=== PATIENT | female | born 1955 | race Caucasian/White ===

== ENCOUNTER 2017-03-21 14:58 | Outpatient (RCR) | payer BC ==
[2017-03-21 15:32] LABS: BASOPHILS % (AUTO) 0 % (0-10); EOSINOPHILS # (AUTO) 0.3 10^3/uL (0.0-0.3); EOSINOPHILS % (AUTO) 3 % (0-10); HEMATOCRIT 42 % (35-52); HEMOGLOBIN 13.5 G/DL (11.5-16.0); LYMPHOCYTES # (AUTO) 2.1 X 10^3 (1.0-4.0); LYMPHOCYTES % (AUTO) 21 % (12-44); MEAN CORPUSCULAR HEMOGLOBIN 29 PG (25-34); MEAN CORPUSCULAR HGB CONC 32 G/DL (32-36); MEAN CORPUSCULAR VOLUME 91 FL (80-99); MONOCYTES # (AUTO) 0.6 X 10^3 (0.0-1.0); MONOCYTES % (AUTO) 6 % (0-12); NEUTROPHILS # (AUTO) 6.9 X 10^3 (1.8-7.8); NEUTROPHILS % (AUTO) 70 % (42-75); PLATELET COUNT 248 10^3/uL (130-400); RED BLOOD COUNT 4.66 10^6/uL (4.35-5.85); RED CELL DISTRIBUTION WIDTH 13.3 % (10.0-14.5)
[2017-03-21 15:50] LABS: ALANINE AMINOTRANSFERASE 18 U/L (0-55); ALBUMIN 4.2 GM/DL (3.2-4.5); ALKALINE PHOSPHATASE 74 U/L (40-136); BILIRUBIN,TOTAL 0.4 MG/DL (0.1-1.0); BUN/CREATININE RATIO 24; CALCIUM 9.7 MG/DL (8.5-10.1); CARBON DIOXIDE 32 MMOL/L (21-32); CHLORIDE 100 MMOL/L (98-107); CREATININE SERUM 0.66 MG/DL (0.60-1.30); GFR ESTIMATED > 60; GLUCOSE 96 MG/DL (70-105); POTASSIUM 3.8 MMOL/L (3.6-5.0); SODIUM 140 MMOL/L (135-145); TOTAL PROTEIN 7.5 GM/DL (6.4-8.2)
== END 2017-06-19 | disposition home or self-care (01) ==
LOC: ONC 14:58
PROVIDERS: ATTEND Internal Medicine Hematology & Oncology
DX: Z08 Encounter for follow-up examination after completed treatment for malignant neoplasm (principal); Z85.038 Personal history of other malignant neoplasm of large intestine; Z85.05 Personal history of malignant neoplasm of liver; Z86.010 Personal history of colon polyps; Z92.21 Personal history of antineoplastic chemotherapy; Z92.3 Personal history of irradiation
CPT/HCPCS: 36415; 80053; 82378; 85025; 99213

== ENCOUNTER 2018-03-27 12:43 | Outpatient (RCR) | payer BC ==
[2018-03-27 13:04] LABS: BASOPHILS % (AUTO) 0 % (0-10); EOSINOPHILS # (AUTO) 0.3 10^3/uL (0.0-0.3); EOSINOPHILS % (AUTO) 3 % (0-10); HEMATOCRIT 42 % (35-52); HEMOGLOBIN 13.5 G/DL (11.5-16.0); LYMPHOCYTES # (AUTO) 1.7 X 10^3 (1.0-4.0); LYMPHOCYTES % (AUTO) 20 % (12-44); MEAN CORPUSCULAR HEMOGLOBIN 30 PG (25-34); MEAN CORPUSCULAR HGB CONC 32 G/DL (32-36); MEAN CORPUSCULAR VOLUME 93 FL (80-99); MONOCYTES # (AUTO) 0.5 X 10^3 (0.0-1.0); MONOCYTES % (AUTO) 6 % (0-12); NEUTROPHILS # (AUTO) 6.3 X 10^3 (1.8-7.8); NEUTROPHILS % (AUTO) 72 % (42-75); PLATELET COUNT 231 10^3/uL (130-400); RED CELL DISTRIBUTION WIDTH 13.2 % (10.0-14.5); WHITE BLOOD COUNT 8.8 10^3/uL (4.3-11.0)
[2018-03-27 13:25] LABS: ALANINE AMINOTRANSFERASE 17 U/L (0-55); ALBUMIN 4.3 GM/DL (3.2-4.5); ALKALINE PHOSPHATASE 64 U/L (40-136); BILIRUBIN,TOTAL 0.7 MG/DL (0.1-1.0); BUN/CREATININE RATIO 24; CALCIUM 10.5 MG/DL (8.5-10.1); CARBON DIOXIDE 33 MMOL/L (21-32); CHLORIDE 100 MMOL/L (98-107); CREATININE SERUM 0.74 MG/DL (0.60-1.30); GFR ESTIMATED > 60; GLUCOSE 101 MG/DL (70-105); POTASSIUM 3.8 MMOL/L (3.6-5.0); SODIUM 141 MMOL/L (135-145); TOTAL PROTEIN 7.3 GM/DL (6.4-8.2)
== END 2018-06-25 | disposition home or self-care (01) ==
LOC: ONC 12:43
PROVIDERS: ATTEND Internal Medicine Hematology & Oncology
DX: Z08 Encounter for follow-up examination after completed treatment for malignant neoplasm (principal); Z85.038 Personal history of other malignant neoplasm of large intestine; Z85.05 Personal history of malignant neoplasm of liver; I10 Essential (primary) hypertension; E66.01 Morbid (severe) obesity due to excess calories; Z68.41 Body mass index [BMI] 40.0-44.9, adult; Z86.010 Personal history of colon polyps; Z92.21 Personal history of antineoplastic chemotherapy; Z92.3 Personal history of irradiation; Z79.82 Long term (current) use of aspirin; Z79.899 Other long term (current) drug therapy
CPT/HCPCS: 36415; 80053; 82378; 85025; 99213

== ENCOUNTER 2019-11-16 14:32 | Inpatient (IN) | payer BC, MEDICARE ==
[~2019-11-16] VITALS: Ht 157.5 cm; Wt 102.2 kg
[2019-11-16] MEDS ORDERED: ASPIRIN 81 MG CHEW (CHILDREN'S ASA) PO ONE (15:15)
[2019-11-16] MEDS ORDERED: ONDANSETRON 4 MG/2 ML (SDV) Z0FRAN IVP ONE (15:15)
--- NOTE | 2019-11-16 15:28 | Diagnostic Imaging Report ---
INDICATION: Palpitation and chest tightness. TECHNIQUE: An AP portable view of the chest was obtained. COMPARISON: No previous study is available for comparison at this time. FINDINGS: The heart size and pulmonary vasculature are within normal limits. The lungs are clear bilaterally. IMPRESSION: Unremarkable chest. Dictated by: Dictated on workstation # [id number]
--- NOTE | 2019-11-16 15:30 | ED General ---
General Chief Complaint: Cardiac/General Problems Stated Complaint: LOW HR Nursing Triage Note: Patient reports palpitations, dry heaves, back pain, neck pain, and chest tightness that started today. Patient presented to urgent care and was referred to the ED for a low heart rate of 47. Nursing Sepsis Screen: No Definite Risk History of Present Illness Date Seen by Provider: Nov 16, 2019 Time Seen by Provider: 15:18 Initial Comments 63-year-old female remote history of colon cancer but has been disease free for at least 10 years also history of coronary artery disease with a stent around 2000 maybe 1 stress test since She initially presented complaining of dry heaves back and neck and head pain but then mentioned palpitations and some vague chest tightness she denies chest pain chest tightness started yesterday Allergies and Home Medications Allergies Coded Allergies: No Known Drug Allergies (Unverified , 11/16/19) Patient Home Medication List Home Medication List Reviewed: Yes Review of Systems Review of Systems Constitutional: no symptoms reported EENTM: no symptoms reported Respiratory: no symptoms reported; No short of breath Cardiovascular: palpitations; No syncope; other (description of tightness) Gastrointestinal: No abdominal pain, No diarrhea; nausea, other (says dry heaves but has not vomited) Genitourinary: no symptoms reported Musculoskeletal: other (diffuse aching back neck had) Past Zdaasyn-Upcycy-Spqcut Hx Patient Social History Alcohol Use: Denies Use Recreational Drug Use: No 2nd Hand Smoke Exposure: No Recent Foreign Travel: No Contact w/Someone Who Travel: No Recent Infectious Disease Expo: No Recent Hopitalizations: No Physical Abuse: No Sexual Abuse: No Mistreated: No Fear: No Seasonal Allergies Seasonal Allergies: No Past Medical History Surgeries: Yes (colon resection, varicose vein stripping) Respiratory: No Cardiac: Yes Coronary Artery Disease, High Cholesterol, Hypertension, Palpitations Neurological: No Genitourinary: No Gastrointestinal: No Musculoskeletal: No Endocrine: No HEENT: No Cancer: Yes Colon Did You Recieve Any Treatments: Yes What Type of Treatment Did You: Surgical Intervention Psychosocial: No Integumentary: No Blood Disorders: No Physical Exam Vital Signs Vital Signs - First Documented 11/16/19 14:37 Temp 36.6 Pulse 80 Resp 17 B/P (MAP) 149/73 (98) Pulse Ox 97 O2 Delivery Room Air Capillary Refill : Less Than 3 Seconds Height, Weight, BMI Height: '" Weight: lbs. oz. kg; 41.00 BMI Method: General Appearance: No Apparent Distress Eyes: Bilateral Eye PERRL, Bilateral Eye EOMI HEENT: Normal ENT Inspection, Pharynx Normal Neck: Supple Respiratory: Lungs Clear Cardiovascular: Other (irreg as described elsewhere) Gastrointestinal: Non Tender, Soft Extremity: Normal Inspection, No Calf Tenderness Progress/Results/Core Measures Suspected Sepsis Recent Fever Within 48 Hours: No Infection Criteria Present: None New/Unexplained Altered Menta: No Sepsis Screen: No Definite Risk SIRS Temperature: Pulse: 80 Respiratory Rate: 17 Laboratory Tests 11/16/19 15:20: White Blood Count 11.5H Blood Pressure 149 /73 Mean: 98 Laboratory Tests 11/16/19 15:20: Creatinine 0.66, Platelet Count 226, Total Bilirubin 0.3 Results/Orders Lab Results Laboratory Tests Test 11/16/19 15:20 Range/Units White Blood Count 11.5 H 4.3-11.0 10^3/uL Red Blood Count 4.91 4.35-5.85 10^6/uL Hemoglobin 14.5 11.5-16.0 G/DL Hematocrit 45 35-52 % Mean Corpuscular Volume 92 80-99 FL Mean Corpuscular Hemoglobin 30 25-34 PG Mean Corpuscular Hemoglobin Concent 32 32-36 G/DL Red Cell Distribution Width 13.3 10.0-14.5 % Platelet Count 226 130-400 10^3/uL Mean Platelet Volume 10.2 7.4-10.4 FL Neutrophils (%) (Auto) 77 H 42-75 % Lymphocytes (%) (Auto) 15 12-44 % Monocytes (%) (Auto) 7 0-12 % Eosinophils (%) (Auto) 2 0-10 % Basophils (%) (Auto) 0 0-10 % Neutrophils # (Auto) 8.8 H 1.8-7.8 X 10^3 Lymphocytes # (Auto) 1.7 1.0-4.0 X 10^3 Monocytes # (Auto) 0.8 0.0-1.0 X 10^3 Eosinophils # (Auto) 0.2 0.0-0.3 10^3/uL Basophils # (Auto) 0.0 0.0-0.1 10^3/uL Sodium Level 142 135-145 MMOL/L Potassium Level 4.1 3.6-5.0 MMOL/L Chloride Level 99 98-107 MMOL/L Carbon Dioxide Level 29 21-32 MMOL/L Anion Gap 14 5-14 MMOL/L Blood Urea Nitrogen 20 H 7-18 MG/DL Creatinine 0.66 0.60-1.30 MG/DL Estimat Glomerular Filtration Rate > 60 BUN/Creatinine Ratio 30 Glucose Level 109 H 70-105 MG/DL Calcium Level 10.6 H 8.5-10.1 MG/DL Corrected Calcium 8.5-10.1 MG/DL Total Bilirubin 0.3 0.1-1.0 MG/DL Aspartate Amino Transf (AST/SGOT) 21 5-34 U/L Alanine Aminotransferase (ALT/SGPT) 18 0-55 U/L Alkaline Phosphatase 75 40-136 U/L Troponin I < 0.30 <0.30 NG/ML Total Protein 7.5 6.4-8.2 GM/DL Albumin 4.6 H 3.2-4.5 GM/DL My Orders Orders - RONDA ARECHIGA MD Iv Heplock-Insert (Order) (11/16/19 15:07) Ekg Tracing (11/16/19 15:07) Troponin I Fs (11/16/19 15:07) Cbc With Automated Diff (11/16/19 15:07) Comprehensive Metabolic Panel (11/16/19 15:07) Chest 1 View Ap/Pa Only (11/16/19 15:07) Monitor-Rhythm Ecg Trace Only (11/16/19 15:07) Ondansetron Injection (Zofran Injectio (11/16/19 15:15) Aspirin Chewable Tablet (Baby Aspirin Ch (11/16/19 15:15) Medications Given in ED Current Medications Medications Dose Ordered Sig/Saeid Route Start Time Stop Time Status Last Admin Dose Admin Aspirin 324 mg ONCE ONCE PO 11/16/19 15:15 11/16/19 15:16 DC 11/16/19 15:29 243 MG Ondansetron HCl 4 mg ONCE ONCE IVP 11/16/19 15:15 11/16/19 15:16 DC 11/16/19 15:29 4 MG Vital Signs/I&O 11/16/19 14:37 Temp 36.6 Pulse 80 Resp 17 B/P (MAP) 149/73 (98) Pulse Ox 97 O2 Delivery Room Air Capillary Refill : Less Than 3 Seconds Blood Pressure Mean: 98 Progress Note : Progress Note Cardiac monitoring shows wandering pacemaker and different forms of PVCs at times bradycardic into 40's but sinus Chest x-ray is unremarkable hemoglobin 14.5 white blood count 11,500 CMP normal troponin is negative pt has wandering atrial pacemaker and various PVCs and is bradycardic at times concerned about the underlying problem here and feel she should be admitted on a monitor to further elucidate Suggest with Dr. Block hospitalist for [facility] who accepts the patient in transfer to [facility] also Dr. Buchanan is aware patient will be on MedSurg telemetry ECG Comment EKG shows a wandering atrial pacemaker and some PVCs no STEMI no definite acute ST changes Departure Impression Primary Impression: Cardiac arrhythmia Qualified Codes: I49.9 - Cardiac arrhythmia, unspecified Disposition: ADMITTED INPATIENT Condition: Stable Departure-Patient Inst. Referrals: [facility]/CRISTINA (PCP) Primary Care Physician DIOGO MAGANA APRN (Family) Primary Care Physician RONDA ARECHIGA MD Nov 16, 2019 15:30
[2019-11-16 15:34] LABS: HEMATOCRIT 45 % (35-52); HEMOGLOBIN 14.5 G/DL (11.5-16.0); MEAN CORPUSCULAR HEMOGLOBIN 30 PG (25-34); MEAN CORPUSCULAR HGB CONC 32 G/DL (32-36); MEAN CORPUSCULAR VOLUME 92 FL (80-99); WHITE BLOOD COUNT 11.5 10^3/uL (4.3-11.0)
[2019-11-16 15:35] LABS: BASOPHILS % (AUTO) 0 % (0-10); EOSINOPHILS % (AUTO) 2 % (0-10); LYMPHOCYTES % (AUTO) 15 % (12-44); MEAN PLATELET VOLUME 10.2 FL (7.4-10.4); MONOCYTES % (AUTO) 7 % (0-12); NEUTROPHILS % (AUTO) 77 % (42-75); PLATELET COUNT 226 10^3/uL (130-400); RED CELL DISTRIBUTION WIDTH 13.3 % (10.0-14.5)
[2019-11-16 15:36] LABS: EOSINOPHILS # (AUTO) 0.2 10^3/uL (0.0-0.3); LYMPHOCYTES # (AUTO) 1.7 X 10^3 (1.0-4.0); MONOCYTES # (AUTO) 0.8 X 10^3 (0.0-1.0); NEUTROPHILS # (AUTO) 8.8 X 10^3 (1.8-7.8)
[2019-11-16 15:54] LABS: ALANINE AMINOTRANSFERASE 18 U/L (0-55); ALBUMIN 4.6 GM/DL (3.2-4.5); ALKALINE PHOSPHATASE 75 U/L (40-136); BILIRUBIN,TOTAL 0.3 MG/DL (0.1-1.0); BUN/CREATININE RATIO 30; CALCIUM 10.6 MG/DL (8.5-10.1); CARBON DIOXIDE 29 MMOL/L (21-32); CHLORIDE 99 MMOL/L (98-107); CREATININE SERUM 0.66 MG/DL (0.60-1.30); GFR ESTIMATED > 60; GLUCOSE 109 MG/DL (70-105); POTASSIUM 4.1 MMOL/L (3.6-5.0); SODIUM 142 MMOL/L (135-145); TOTAL PROTEIN 7.5 GM/DL (6.4-8.2)
--- OUTSIDE RECORDS SUMMARY | 2019-11-16 17:10 | XMS REPORT | Continuity of Care Document ---
Author Organization Unknown Address Unknown Phone Unavailable Allergies Active Description Code Type Severity Reaction Onset Reported/Identified Relationship to Patient Clinical Status Yes No Known Drug Allergies [id number] Drug Allergy Unknown N/A 11/16/2019 Medications There is no data. Problems Date Dx Coded Attending Type Code Diagnosis Diagnosed By 04/09/2014 MELLISA, BOBAN N Ot V10.05 04/09/2014 MELLISA BOBAN N Ot V12.72 04/09/2014 MELLISA BOBAN N Ot V58.69 04/09/2014 MELLISA BOBAN N Ot V67.1 04/09/2014 MELLISA, BOBAN N Ot V67.2 04/07/2015 MELLISA BOBAN N Ot Z08 04/07/2015 MELLISA BOBAN N Ot Z85.038 04/07/2015 MELLISA BOBAN N Ot Z85.05 04/07/2015 MELLISA, BOBAN N Ot Z86.010 04/07/2015 MELLISA BOBAN N Ot Z92.21 03/22/2016 MELLISA, BOBAN N Ot Z08 ENCNTR FOR FOLLOW-UP EXAM AFTER TRTMT FO 03/22/2016 MELLISA, BOBAN N Ot Z85.038 PERSONAL HISTORY OF MALIGNANT NEOPLASM O 03/22/2016 MELLISA, BOBAN N Ot Z85.05 PERSONAL HISTORY OF MALIGNANT NEOPLASM O 03/22/2016 MELLISA BOBAN N Ot Z86.010 PERSONAL HISTORY OF COLONIC POLYPS 03/22/2016 MELLISA, BOBAN N Ot Z92.21 PERSONAL HISTORY OF ANTINEOPLASTIC CHEMO 04/05/2016 MELLISA BOBAN N Ot Z08 ENCNTR FOR FOLLOW-UP EXAM AFTER TRTMT FO 04/05/2016 MELLISA, BOBAN N Ot Z85.038 PERSONAL HISTORY OF MALIGNANT NEOPLASM O 04/05/2016 MELLISA BOBAN N Ot Z85.05 PERSONAL HISTORY OF MALIGNANT NEOPLASM O 04/05/2016 MELLISA, BOBAN N Ot Z86.010 PERSONAL HISTORY OF COLONIC POLYPS 04/05/2016 RENETTA PAK N Ot Z92.21 PERSONAL HISTORY OF ANTINEOPLASTIC CHEMO 03/25/2017 RENETTA PAK N Ot Z08 ENCNTR FOR FOLLOW-UP EXAM AFTER TRTMT FO 03/25/2017 RENETTA PAK N Ot Z85.038 PERSONAL HISTORY OF MALIGNANT NEOPLASM O 03/25/2017 RENETTA PAK N Ot Z85.05 PERSONAL HISTORY OF MALIGNANT NEOPLASM O 03/25/2017 MELLISA ANKURTAMARA N Ot Z86.010 PERSONAL HISTORY OF COLONIC POLYPS 03/25/2017 RENETTA PAK N Ot Z92.21 PERSONAL HISTORY OF ANTINEOPLASTIC CHEMO 03/25/2017 RENETTA PAK N Ot Z92.3 PERSONAL HISTORY OF IRRADIATION 04/19/2017 RENETTA PAK N Ot Z08 ENCNTR FOR FOLLOW-UP EXAM AFTER TRTMT FO 04/19/2017 RENETTA PAK N Ot Z85.038 PERSONAL HISTORY OF MALIGNANT NEOPLASM O 04/19/2017 MELLISA ANKURTAMARA N Ot Z85.05 PERSONAL HISTORY OF MALIGNANT NEOPLASM O 04/19/2017 RENETTA APK N Ot Z86.010 PERSONAL HISTORY OF COLONIC POLYPS 04/19/2017 RENETTA PAK N Ot Z92.21 PERSONAL HISTORY OF ANTINEOPLASTIC CHEMO 04/19/2017 RENETTA PAK N Ot Z92.3 PERSONAL HISTORY OF IRRADIATION 06/19/2017 RENETTA PAK N Ot Z08 ENCNTR FOR FOLLOW-UP EXAM AFTER TRTMT FO 06/19/2017 RENETTA PAK N Ot Z85.038 PERSONAL HISTORY OF MALIGNANT NEOPLASM O 06/19/2017 MELLISA ANKURTAMARA N Ot Z85.05 PERSONAL HISTORY OF MALIGNANT NEOPLASM O 06/19/2017 MELLISA ANKURTAMARA N Ot Z86.010 PERSONAL HISTORY OF COLONIC POLYPS 06/19/2017 RENETTA PAK N Ot Z92.21 PERSONAL HISTORY OF ANTINEOPLASTIC CHEMO 06/19/2017 MELLISA ANKURTAMARA N Ot Z92.3 PERSONAL HISTORY OF IRRADIATION 06/20/2017 MELLISA ANKURTAMARA N Ot Z08 ENCNTR FOR FOLLOW-UP EXAM AFTER TRTMT FO 06/20/2017 RENETTA PAK N Ot Z85.038 PERSONAL HISTORY OF MALIGNANT NEOPLASM O 06/20/2017 MELLISA ANKURTAMARA N Ot Z85.05 PERSONAL HISTORY OF MALIGNANT NEOPLASM O 06/20/2017 RENETTA PAK N Ot Z86.010 PERSONAL HISTORY OF COLONIC POLYPS 06/20/2017 RENETTA PAK N Ot Z92.21 PERSONAL HISTORY OF ANTINEOPLASTIC CHEMO 06/20/2017 RENETTA PAK N Ot Z92.3 PERSONAL HISTORY OF IRRADIATION 05/12/2018 RENETTA PAK N Ot E66.01 MORBID (SEVERE) OBESITY DUE TO EXCESS CA 05/12/2018 RENETTA PAK N Ot I10 ESSENTIAL (PRIMARY) HYPERTENSION 05/12/2018 RENETTA PAK N Ot Z08 ENCNTR FOR FOLLOW-UP EXAM AFTER TRTMT FO 05/12/2018 RENETTA PAK N Ot Z68.41 BODY MASS INDEX (BMI) 40.0-44.9, ADULT 05/12/2018 RENETTA PAK N Ot Z79.82 HALF-WAY (CURRENT) USE OF ASPIRIN 05/12/2018 MELLISA ANKURTAMARA N Ot Z79.899 OTHER HALF-WAY (CURRENT) DRUG THERAPY 05/12/2018 MELLISA ANKURTAMARA N Ot Z85.038 PERSONAL HISTORY OF MALIGNANT NEOPLASM O 05/12/2018 MELLISA ANKURTAMARA N Ot Z85.05 PERSONAL HISTORY OF MALIGNANT NEOPLASM O 05/12/2018 RENETTA PAK N Ot Z86.010 PERSONAL HISTORY OF COLONIC POLYPS 05/12/2018 RENETTA PAK N Ot Z92.21 PERSONAL HISTORY OF ANTINEOPLASTIC CHEMO 05/12/2018 RENETTA PAK N Ot Z92.3 PERSONAL HISTORY OF IRRADIATION 06/25/2018 RENETTA PAK N Ot E66.01 MORBID (SEVERE) OBESITY DUE TO EXCESS CA 06/25/2018 RENETTA PAK N Ot I10 ESSENTIAL (PRIMARY) HYPERTENSION 06/25/2018 RENETTA PAK N Ot Z08 ENCNTR FOR FOLLOW-UP EXAM AFTER TRTMT FO 06/25/2018 RENETTA PAK N Ot Z68.41 BODY MASS INDEX (BMI) 40.0-44.9, ADULT 06/25/2018 RENETTA PAK N Ot Z79.82 BUSINESS REPORTER (CURRENT) USE OF ASPIRIN 06/25/2018 MELLISA ANKURTAMARA N Ot Z79.899 OTHER BUSINESS REPORTER (CURRENT) DRUG THERAPY 06/25/2018 MELLISA ANKURTAMARA N Ot Z85.038 PERSONAL HISTORY OF MALIGNANT NEOPLASM O 06/25/2018 MELLISA RENETTA N Ot Z85.05 PERSONAL HISTORY OF MALIGNANT NEOPLASM O 06/25/2018 RENETTA PAK N Ot Z86.010 PERSONAL HISTORY OF COLONIC POLYPS 06/25/2018 RENETTA PAK N Ot Z92.21 PERSONAL HISTORY OF ANTINEOPLASTIC CHEMO 06/25/2018 RENETTA PAK N Ot Z92.3 PERSONAL HISTORY OF IRRADIATION 06/26/2018 RENETTA PAK N Ot E66.01 MORBID (SEVERE) OBESITY DUE TO EXCESS CA 06/26/2018 RENETTA PAK N Ot I10 ESSENTIAL (PRIMARY) HYPERTENSION 06/26/2018 RENETTA PAK N Ot Z08 ENCNTR FOR FOLLOW-UP EXAM AFTER TRTMT FO 06/26/2018 RENETTA PAK N Ot Z68.41 BODY MASS INDEX (BMI) 40.0-44.9, ADULT 06/26/2018 RENETTA PAK N Ot Z79.82 HALF-WAY (CURRENT) USE OF ASPIRIN 06/26/2018 RENETTA PAK N Ot Z79.899 OTHER HALF-WAY (CURRENT) DRUG THERAPY 06/26/2018 RENETTA PAK N Ot Z85.038 PERSONAL HISTORY OF MALIGNANT NEOPLASM O 06/26/2018 RENETTA PAK N Ot Z85.05 PERSONAL HISTORY OF MALIGNANT NEOPLASM O 06/26/2018 RENETTA PAK N Ot Z86.010 PERSONAL HISTORY OF COLONIC POLYPS 06/26/2018 RENETTA PAK N Ot Z92.21 PERSONAL HISTORY OF ANTINEOPLASTIC CHEMO 06/26/2018 RENETTA PAK N Ot Z92.3 PERSONAL HISTORY OF IRRADIATION 03/30/2019 RENETTA PAK N Ot E66.01 MORBID (SEVERE) OBESITY DUE TO EXCESS CA 03/30/2019 RENETTA PAK N Ot I10 ESSENTIAL (PRIMARY) HYPERTENSION 03/30/2019 RENETTA PAK Ayleen Ot Z08 ENCNTR FOR FOLLOW-UP EXAM AFTER TRTMT FO 03/30/2019 RENETTA PAK Ayleen Ot Z68.41 BODY MASS INDEX (BMI) 40.0-44.9, ADULT 03/30/2019 RENETTA PAK N Ot Z79.82 HALF-WAY (CURRENT) USE OF ASPIRIN 03/30/2019 MELLISA ANKURTAMARA N Ot Z79.899 OTHER BUSINESS REPORTER (CURRENT) DRUG THERAPY 03/30/2019 RENETTA PAK N Ot Z85.038 PERSONAL HISTORY OF MALIGNANT NEOPLASM O 03/30/2019 RENETTA PAK N Ot Z85.05 PERSONAL HISTORY OF MALIGNANT NEOPLASM O 03/30/2019 RENETTA PAK Ot Z86.010 PERSONAL HISTORY OF COLONIC POLYPS 03/30/2019 RENETTA PAK N Ot Z92.21 PERSONAL HISTORY OF ANTINEOPLASTIC CHEMO 03/30/2019 RENETTA PAK N Ot Z92.3 PERSONAL HISTORY OF IRRADIATION 04/02/2019 RENETTA PAK N Ot 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 04/02/2019 RENETTA PAK N Ot E66.01 MORBID (SEVERE) OBESITY DUE TO EXCESS CA 04/02/2019 RENETTA PAK N Ot I10 ESSENTIAL (PRIMARY) HYPERTENSION 04/02/2019 RENETTA PAK N Ot Z85.05 PERSONAL HISTORY OF MALIGNANT NEOPLASM O 04/02/2019 RENETTA PAK N Ot Z90.49 ACQUIRED ABSENCE OF OTHER SPECIFIED PART 04/02/2019 RENETTA PAK Ot 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 04/02/2019 RENETTA PAK N Ot E66.01 MORBID (SEVERE) OBESITY DUE TO EXCESS CA 04/02/2019 RENETTA PAK N Ot I10 ESSENTIAL (PRIMARY) HYPERTENSION 04/02/2019 RENETTA PAK N Ot Z85.05 PERSONAL HISTORY OF MALIGNANT NEOPLASM O 04/02/2019 RENETTA PAK N Ot Z90.49 ACQUIRED ABSENCE OF OTHER SPECIFIED PART 04/08/2019 RENETTA PAK N Ot 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 04/08/2019 RENETTA PAK N Ot E66.01 MORBID (SEVERE) OBESITY DUE TO EXCESS CA 04/08/2019 RENETTA PAK N Ot I10 ESSENTIAL (PRIMARY) HYPERTENSION 04/08/2019 RENETTA PAK N Ot Z85.05 PERSONAL HISTORY OF MALIGNANT NEOPLASM O 04/08/2019 RENETTA PAK N Ot Z90.49 ACQUIRED ABSENCE OF OTHER SPECIFIED PART 04/28/2019 RENETTA PAK N Ot 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 04/28/2019 RENETTA PAK N Ot E66.01 MORBID (SEVERE) OBESITY DUE TO EXCESS CA 04/28/2019 RENETTA PAK N Ot I10 ESSENTIAL (PRIMARY) HYPERTENSION 04/28/2019 RENETTA PAK N Ot Z85.05 PERSONAL HISTORY OF MALIGNANT NEOPLASM O 04/28/2019 RENETTA PAK N Ot Z90.49 ACQUIRED ABSENCE OF OTHER SPECIFIED PART Procedures There is no data. Results Test Result Range Complete blood count (CBC) with automate d white blood cell (WBC) differential - 03/21/17 15:25 Blood leukocytes automated count (number/volume) 10.0 10*3/uL 4.3-11.0 Blood erythrocytes automated count (number/volume) 4.66 10*6/uL 4.35-5.85 Venous blood hemoglobin measurement (mass/volume) 13.5 g/dL 11.5-16.0 Blood hematocrit (volume fraction) 42 % 35-52 Automated erythrocyte mean corpuscular volume 91 [ foz_us] 80-99 Automated erythrocyte mean corpuscular h emoglobin (mass per erythrocyte) 29 pg 25-34 Automated erythrocyte mean corpuscular h emoglobin concentration measurement (mass/volume) 32 g/dL 32-36 Automated erythrocyte distribution width ratio 13. 3 % 10.0- 14.5 Automated blood platelet count (count/volume) 248 10*3/uL 130-400 Automated blood platelet mean volume measurement 10.0 [foz_us] 7.4-10.4 Automated blood neutrophils/100 leukocytes 70 % 42-75 Automated blood lymphocytes/100 leukocytes 21 % 12-44 Blood monocytes/100 leukocytes 6 % 0-12 Automated blood eosinophils/100 leukocytes 3 % 0-10 Automated blood basophils/100 leukocytes 0 % 0-10 Blood neutrophils automated count (number/volume) 6.9 10*3 1.8-7.8 Blood lymphocytes automated count (number/volume) 2.1 10*3 1.0-4.0 Blood monocytes automated count (number/volume) 0. 6 10*3 0.0-1.0 Automated eosinophil count 0.3 10*3/uL 0 .0-0.3 Automated blood basophil count (count/volume) 0.0 10*3/uL 0.0-0.1 Comprehensive metabolic panel - 03/21/17 15:25 Serum or plasma sodium measurement (moles/volume) 140 mmol/L 135-145 Serum or plasma potassium measurement (moles/volume) 3.8 mmol/L 3.6-5.0 Serum or plasma chloride measurement (moles/volume) 100 mmol/L 98-107 Carbon dioxide 32 mmol/L 21-32 Serum or plasma anion gap determination (moles/volume) 8 mmol/L 5-14 Serum or plasma urea nitrogen measurement (mass/volume ) 16 mg/dL 7-18 Serum or plasma creatinine measurement (mass/volume) 0.66 mg/dL 0.60-1.30 Serum or plasma urea nitrogen/creatinine mass ratio 24 NRG Serum or plasma creatinine measurement w ith calculation of estimated glomerular filtration rate > NRG Serum or plasma glucose measurement (mass/volume) 96 mg/dL 70-105 Serum or plasma calcium measurement (mass/volume) 9.7 mg/dL 8.5-10.1 Serum or plasma total bilirubin measurement (mass/volu me) 0.4 mg/dL 0.1-1.0 Serum or plasma alkaline phosphatase kwasi surement (enzymatic activity/volume) 74 U/L 40-136 Serum or plasma aspartate aminotransfera se measurement (enzymatic activity/volume) 18 U/L 5-34 Serum or plasma alanine aminotransferase measurement (enzymatic activity/volume) 18 U/L 0-55 Serum or plasma protein measurement (mass/volume) 7.5 g/dL 6.4-8.2 Serum or plasma albumin measurement (mass/volume) 4.2 g/dL 3.2-4.5 Serum ragweed IgE antibody assay - 03/21 15:25 Serum ragweed IgE antibody assay <0.5 0.0-5.0 CULTURE, URINE - 03/10/19 09:11 CULTURE, URINE, ROUTINE SEE NOTE NRG CMP - 03/17/19 15:07 GLUCOSE 84 mg/dL 65-99 UREA NITROGEN (BUN) 22 mg/dL 7-25 CREATININE 0.56 mg/dL 0.50-0.99 eGFR NON-AFR. PERUVIAN 98 mL/min/1.73m2 > OR = 60 eGFR 113 mL/min/1.73m2 > OR = 60 BUN/CREATININE RATIO NOT APPLICABLE (calc) 6-22 SODIUM 140 mmol/L 135-146 POTASSIUM 4.0 mmol/L 3.5-5.3 CHLORIDE 98 mmol/L 98-110 CARBON DIOXIDE 30 mmol/L 20-32 CALCIUM 10.0 mg/dL 8.6-10.4 PROTEIN, TOTAL 7.1 g/dL 6.1-8.1 ALBUMIN 4.3 g/dL 3.6-5.1 GLOBULIN 2.8 g/dL (calc) 1.9-3.7 ALBUMIN/GLOBULIN RATIO 1.5 (calc) 1.0-2. 5 BILIRUBIN, TOTAL 1.0 mg/dL 0.2-1.2 ALKALINE PHOSPHATASE 75 U/L 33-130 AST 21 U/L 10-35 ALT 21 U/L 6-29 Complete blood count (CBC) with automate d white blood cell (WBC) differential - 11/16/19 15:20 Blood leukocytes automated count (number/volume) 11.5 10*3/uL 4.3-11.0 Blood erythrocytes automated count (number/volume) 4.91 10*6/uL 4.35-5.85 Venous blood hemoglobin measurement (mass/volume) 14.5 g/dL 11.5-16.0 Blood hematocrit (volume fraction) 45 % 35-52 Automated erythrocyte mean corpuscular volume 92 [ foz_us] 80-99 Automated erythrocyte mean corpuscular h emoglobin (mass per erythrocyte) 30 pg 25-34 Automated erythrocyte mean corpuscular h emoglobin concentration measurement (mass/volume) 32 g/dL 32-36 Automated erythrocyte distribution width ratio 13. 3 % 10.0- 14.5 Automated blood platelet count (count/volume) 226 10*3/uL 130-400 Automated blood platelet mean volume measurement 10.2 [foz_us] 7.4-10.4 Automated blood neutrophils/100 leukocytes 77 % 42-75 Automated blood lymphocytes/100 leukocytes 15 % 12-44 Blood monocytes/100 leukocytes 7 % 0-12 Automated blood eosinophils/100 leukocytes 2 % 0-10 Automated blood basophils/100 leukocytes 0 % 0-10 Blood neutrophils automated count (number/volume) 8.8 10*3 1.8-7.8 Blood lymphocytes automated count (number/volume) 1.7 10*3 1.0-4.0 Blood monocytes automated count (number/volume) 0. 8 10*3 0.0-1.0 Automated eosinophil count 0.2 10*3/uL 0 .0-0.3 Automated blood basophil count (count/volume) 0.0 10*3/uL 0.0-0.1 Comprehensive metabolic panel - 11/16/19 15:20 Serum or plasma sodium measurement (moles/volume) 142 mmol/L 135-145 Serum or plasma potassium measurement (moles/volume) 4.1 mmol/L 3.6-5.0 Serum or plasma chloride measurement (moles/volume) 99 mmol/L 98-107 Carbon dioxide 29 mmol/L 21-32 Serum or plasma anion gap determination (moles/volume) 14 mmol/L 5-14 Serum or plasma urea nitrogen measurement (mass/volume ) 20 mg/dL 7-18 Serum or plasma creatinine measurement (mass/volume) 0.66 mg/dL 0.60-1.30 Serum or plasma urea nitrogen/creatinine mass ratio 30 NRG Serum or plasma creatinine measurement w ith calculation of estimated glomerular filtration rate > NRG Serum or plasma glucose measurement (mass/volume) 109 mg/dL 70-105 Serum or plasma calcium measurement (mass/volume) 10.6 mg/dL 8.5-10.1 Serum or plasma total bilirubin measurement (mass/volu me) 0.3 mg/dL 0.1-1.0 Serum or plasma alkaline phosphatase kwasi surement (enzymatic activity/volume) 75 U/L 40-136 Serum or plasma aspartate aminotransfera se measurement (enzymatic activity/volume) 21 U/L 5-34 Serum or plasma alanine aminotransferase measurement (enzymatic activity/volume) 18 U/L 0-55 Serum or plasma protein measurement (mass/volume) 7.5 g/dL 6.4-8.2 Serum or plasma albumin measurement (mass/volume) 4.6 g/dL 3.2-4.5 TROPONIN I FS - 11/16/19 15:20 TROPONIN I FS < 0.30 <0.30 Encounters ACCT No. Visit Date/Time Discharge Status Pt. Type Provider Facility Loc./Unit Complaint [id number] 08/03/2019 14:20:00 08/03/2019 23:59: 59 [facility] [id number] 03/17/2019 14:00:00 Document Registration [id number] 03/10/2019 09:00:00 Document Registration [id number] 03/31/2019 12:49:00 019 23:59:59 CLS Outpatient RENETTA PAK [facility] ONC [id number] 03/27/2018 12:43:00 019 00:01:00 DIS Outpatient RENETTA PAK V [facility] ONC [id number] 03/21/2017 14:58:00 018 00:01:00 DIS Outpatient MELLISARENETTA V [facility] ONC [id number] 03/22/2016 14:39:00 016 23:59:59 CLS Outpatient MELLISARENETTA V [facility] ONC [id number] 03/24/2015 14:48:00 015 23:59:59 CLS Outpatient RENETTA PAK V [facility] ONC [id number] 03/25/2014 15:06:00 014 23:59:59 CLS Outpatient RENETTA PAK V [facility] ONC [id number] 03/16/2013 14:44:00 013 23:59:59 CLS Outpatient [id number] 11/16/2019 14:33:[address] Emergency HAWK DIALLO, RONDA Melissa [facility] ER FS LOW HR
--- NOTE | 2019-11-16 21:40 | NUR ---
ALONA MAURER admitted to room 414-1, with an admitting diagnosis of CARDIAC ARRHYTHMIA AND BRADYCARDIA, on 11/16/19 from [facility] via [facility], accompanied by EMS. ALONA MAURER introduced to surroundings, call light, bed controls, phone, TV, temperature control, lights, meal times, smoking policy, visitor policy, side rail policy, bathrooms and showers. Patient Rights given to patient in the handbook. ALONA MAURER verbalizes understanding that [facility] is not responsible for the loss or damage to any personal effects or valuables that are kept in the patients possession during their hospitalization.
[2019-11-16] MEDS ORDERED: PATIENT MAY USE OWN MEDS, ALL PO SCH (21:45)
[2019-11-16 21:51] VITALS: BP 141/85
[2019-11-17] VITALS (7 sets, daily range): BP systolic 97–125; BP diastolic 57–74
[2019-11-17 05:52] LABS: HEMOGLOBIN 13.5 G/DL (11.5-16.0); MEAN PLATELET VOLUME 10.1 FL (7.4-10.4); RED CELL DISTRIBUTION WIDTH 13.4 % (10.0-14.5); WHITE BLOOD COUNT 7.5 10^3/uL (4.3-11.0)
[2019-11-17 06:13] LABS: CHLORIDE 104 MMOL/L (98-107); POTASSIUM 3.9 MMOL/L (3.6-5.0); SODIUM 141 MMOL/L (135-145)
[2019-11-17 06:14] LABS: CALCIUM 9.6 MG/DL (8.5-10.1)
[2019-11-17 06:15] LABS: GLUCOSE 100 MG/DL (70-105)
[2019-11-17 06:16] LABS: CARBON DIOXIDE 27 MMOL/L (21-32)
[2019-11-17 06:19] LABS: CREATININE SERUM 0.67 MG/DL (0.60-1.30); GFR ESTIMATED > 60
[2019-11-17 06:20] LABS: BUN/CREATININE RATIO 22
--- NOTE | 2019-11-17 08:55 | Consultation-Cardiology ---
HPI-Cardiology Cardiology Consultation Date of Consultation 11/17/19 Date of Admission Time Seen by Provider: 08:51 Indication: Chest pain HPI 63-year-old lady with history of coronary artery disease, stent, history of hypertension and hyperlipidemia. Did not feel well, felt palpitation and skipped beat in addition to pressure in the retrosternal area, came into the emergency room and noted to be borderline bradycardic with frequent atrial and ventricular premature contractions. Since her arrival she is been feeling better still having mild chest discomfort on and off. No syncope, no near syncopal episode reporting snoring at night, never been tested for sleep apnea Home Medications & Allergies Allergies: Coded Allergies: No Known Drug Allergies (Unverified , 11/16/19) Home Medication List Reviewed: Yes THV-Pjlgat-Iiomaq Hx Patient Social History Marital Status: Employed/Student: employed Alcohol Use: Denies Use Recreational Drug Use: No 2nd Hand Smoke Exposure: No Recent Foreign Travel: No Recent Infectious Disease Expo: No Recent Hopitalizations: No Past Medical History Discussed below Family Medical History Family Medical Hx Noncontributory Review of Systems-General Review of Systems Constitutional: no symptoms reported, see HPI, malaise EENTM: see HPI, no symptoms reported Respiratory: see HPI; No cough, No dyspnea on exertion, No hemoptysis, No orthopnea, No phlegm, No short of breath, No stridor, No wheezing, No other Cardiovascular: see HPI, chest pain; No edema, No Hx of Intervention; palpitations; No syncope, No vascular heart diseas; other (description of tightness) Gastrointestinal: see HPI; No abdominal pain, No diarrhea; nausea, other (says dry heaves but has not vomited) Genitourinary: no symptoms reported, see HPI Musculoskeletal: see HPI, other (diffuse aching back neck had) Skin: see HPI Psychiatric/Neurological: See HPI Reviewed Test Results Reviewed Test Results Lab Laboratory Tests Test 11/16/19 15:20 11/17/19 05:25 Range/Units White Blood Count 11.5 H 7.5 4.3-11.0 10^3/uL Red Blood Count 4.91 4.63 4.35-5.85 10^6/uL Hemoglobin 14.5 13.5 11.5-16.0 G/DL Hematocrit 45 42 35-52 % Mean Corpuscular Volume 92 91 80-99 FL Mean Corpuscular Hemoglobin 30 29 25-34 PG Mean Corpuscular Hemoglobin Concent 32 32 32-36 G/DL Red Cell Distribution Width 13.3 13.4 10.0-14.5 % Platelet Count 226 207 130-400 10^3/uL Mean Platelet Volume 10.2 10.1 7.4-10.4 FL Neutrophils (%) (Auto) 77 H 42-75 % Lymphocytes (%) (Auto) 15 12-44 % Monocytes (%) (Auto) 7 0-12 % Eosinophils (%) (Auto) 2 0-10 % Basophils (%) (Auto) 0 0-10 % Neutrophils # (Auto) 8.8 H 1.8-7.8 X 10^3 Lymphocytes # (Auto) 1.7 1.0-4.0 X 10^3 Monocytes # (Auto) 0.8 0.0-1.0 X 10^3 Eosinophils # (Auto) 0.2 0.0-0.3 10^3/uL Basophils # (Auto) 0.0 0.0-0.1 10^3/uL Sodium Level 142 141 135-145 MMOL/L Potassium Level 4.1 3.9 3.6-5.0 MMOL/L Chloride Level 99 104 98-107 MMOL/L Carbon Dioxide Level 29 27 21-32 MMOL/L Anion Gap 14 10 5-14 MMOL/L Blood Urea Nitrogen 20 H 15 7-18 MG/DL Creatinine 0.66 0.67 0.60-1.30 MG/DL Estimat Glomerular Filtration Rate > 60 > 60 BUN/Creatinine Ratio 30 22 Glucose Level 109 H 100 70-105 MG/DL Calcium Level 10.6 H 9.6 8.5-10.1 MG/DL Corrected Calcium 8.5-10.1 MG/DL Total Bilirubin 0.3 0.1-1.0 MG/DL Aspartate Amino Transf (AST/SGOT) 21 5-34 U/L Alanine Aminotransferase (ALT/SGPT) 18 0-55 U/L Alkaline Phosphatase 75 40-136 U/L Troponin I < 0.30 <0.30 NG/ML Total Protein 7.5 6.4-8.2 GM/DL Albumin 4.6 H 3.2-4.5 GM/DL Thyroid Stimulating Hormone (TSH) 1.78 0.35-4.94 UIU/ML Physical Exam Physical Exam Vital Signs Vital Signs - First Documented 11/16/19 14:37 Temp 36.6 Pulse 80 Resp 17 B/P (MAP) 149/73 (98) Pulse Ox 97 O2 Delivery Room Air Capillary Refill : Less Than 3 Seconds Height, Weight, BMI Height: '" Weight: lbs. oz. kg; 41.19 BMI Method: General Appearance: No Apparent Distress Eyes: Bilateral Eye PERRL, Bilateral Eye EOMI HEENT: Normal ENT Inspection, Pharynx Normal Neck: Supple Respiratory: Lungs Clear Cardiovascular: No Edema, No JVD, No Murmur, Other (Frequent APCs, PVCs) Gastrointestinal: Non Tender, Soft Back: Normal Inspection, No CVA Tenderness, No Vertebral Tenderness Extremity: Normal Inspection, No Calf Tenderness Neurologic/Psychiatric: Alert, Oriented x3, No Motor/Sensory Deficits, Normal Mood/Affect Skin: Normal Color, Warm/Dry Lymphatic: No Adenopathy A/P-Cardiology Admission Diagnosis Chest pain Palpitation Sinus bradycardia Ventricular premature contractions Assessment/Plan Chest pain nonspecific etiology, resembling angina, extensive cardiac history, no recent Cardec workup, planning to evaluate stress test in the morning. Palpitation, frequent APC and PVC, I'll start low-dose beta blockers, I doubt that she can tolerate. Due to bradycardia while asleep, probably has underlying sleep apnea. Coronary artery disease, history of stenting over 10 years ago, no recent workup was done. Planning to evaluate stress test Hypertension, monitor blood pressure Hyperlipidemia, has been on statin, monitor lipids Obesity, BMI 41, discussed weight loss Snoring, multiple risk factors for sleep apnea, recommend sleep study, consult Dr. Garza Clinical Quality Measures DVT/VTE Risk/Contraindication: Risk Factor Score Per Nursin RFS Level Per Nursing on Admit: 3=High MEMO MARTINEZ MD Nov 17, 2019 08:55
[2019-11-17] MEDS ORDERED: REGADENOSON 0.4 MG/5 ML SYR (LEXISCAN) IV ONE (09:00)
[2019-11-17 09:10] LABS: TRIGLYCERIDES 185 MG/DL (<150); VLDL CHOLESTEROL 37 MG/DL (5-40)
[2019-11-17 09:15] LABS: CHOLESTEROL 170 MG/DL (< 200)
[2019-11-17 09:16] LABS: HDL CHOLESTEROL 37 MG/DL (40-60)
[2019-11-17] MEDS: ENOXAPARIN 40 MG/0.4 ML (LOVENOX) SYR SQ SCH ×2 (09:22→20:52)
[2019-11-17] MEDS ORDERED: SERT50TA9 PO (10:33)
[2019-11-17] MEDS ORDERED: METO50TA15 PO (10:33)
[2019-11-17] MEDS ORDERED: ASPI-983 PO (10:33)
[2019-11-17] MEDS ORDERED: ATOR20TA66 PO (10:33)
[2019-11-17] MEDS ORDERED: MULT-1060 PO (10:33)
[2019-11-17] MEDS ORDERED: OMEG-141 PO (10:33)
[2019-11-17] MEDS ORDERED: LISI1TAB25 PO (10:33)
--- NOTE | 2019-11-17 10:34 | NUR ---
SPOKE WITH THE PT (SHE HAD HER MEDS WITH HER) AND WENT THRU THE EXT MED HISTORY TO COMPLETE THE MED REC ON 11-06-2019 HYDROCODONE /APAP WAS FILLED FOR #12-HOWEVER THE PT SAID SHE DID NOT LIKE HOW THEY MADE HER FEEL SO SHE ONLY TOOK 2 TABS- FOR THIS REASON I DID NOT INCLUDE ON THE MED REC PT WAS ABLE TO TELL ME HOW/WHEN SHE TAKES HER MEDS AND THE INFORMATION MATCHED THE BOTTLES/EXT MED HISTORY OTC MEDS: MTV OMEGA 3 ASPIRIN 81
--- NOTE | 2019-11-17 11:26 | History & Physical ---
HPI History of Present Illness: 63 yo female came to ER due to palpitations, dry heaves, headache and chest tightness for the last day and a half, although palpitations have been going on longer but less severe. She has a history of a stent around 2003, but denies any other cardiac issues. She denies fever, nasal congestion, sore throat, cough, shortness of breath, diarrhea, vomiting. Her notes she sleeps a lot and seems to get into deep sleep and not breathe for a relatively long period. She has not had a sleep study done. Source: patient Date seen by provider: Nov 17, 2019 Time Seen by Provider: 10:15 Attending Physician Serenity Block MD [facility] Consult Date of Admission Nov 16, 2019 at 16:50 Home Medications Home Medications Reviewed patient Home Medication Reconciliation performed by pharmacy medication reconciliations non destructive evaluation technician and/or nursing. Patients Allergies have been reviewed. Allergies Coded Allergies: No Known Drug Allergies (Unverified , 11/16/19) LMY-Ppnwua-Gewtmt Hx Patient Social History Marrital Status: Employed/Student: employed Alcohol Use: Denies Use Recreational Drug Use: No 2nd Hand Smoke Exposure: No Recent Foreign Travel: No Contact w/other who traveled: No Recent Hopitalizations: No Recent Infectious Disease Expo: No Past Medical History PMHx: CAD s/p stent HTN HLD Colon cancer in remission SurgHx: Colon resection Liver/diaphragm cancer resection Cholecystectomy Family Medical History Significant Family History: No Pertinent Family Hx Review of Systems ([facility]) Constitutional: No fever EENTM: No nose congestion, No throat pain Respiratory: No short of breath Cardiovascular: see HPI Gastrointestinal: No abdominal pain, No constipation, No diarrhea, No nausea, No vomiting Genitourinary: No dysuria Skin: No rash Reviewed Test Results Reviewed Test Results Lab Laboratory Tests Test 11/16/19 15:20 11/17/19 05:25 Range/Units White Blood Count 11.5 H 7.5 4.3-11.0 10^3/uL Red Blood Count 4.91 4.63 4.35-5.85 10^6/uL Hemoglobin 14.5 13.5 11.5-16.0 G/DL Hematocrit 45 42 35-52 % Mean Corpuscular Volume 92 91 80-99 FL Mean Corpuscular Hemoglobin 30 29 25-34 PG Mean Corpuscular Hemoglobin Concent 32 32 32-36 G/DL Red Cell Distribution Width 13.3 13.4 10.0-14.5 % Platelet Count 226 207 130-400 10^3/uL Mean Platelet Volume 10.2 10.1 7.4-10.4 FL Neutrophils (%) (Auto) 77 H 42-75 % Lymphocytes (%) (Auto) 15 12-44 % Monocytes (%) (Auto) 7 0-12 % Eosinophils (%) (Auto) 2 0-10 % Basophils (%) (Auto) 0 0-10 % Neutrophils # (Auto) 8.8 H 1.8-7.8 X 10^3 Lymphocytes # (Auto) 1.7 1.0-4.0 X 10^3 Monocytes # (Auto) 0.8 0.0-1.0 X 10^3 Eosinophils # (Auto) 0.2 0.0-0.3 10^3/uL Basophils # (Auto) 0.0 0.0-0.1 10^3/uL Sodium Level 142 141 135-145 MMOL/L Potassium Level 4.1 3.9 3.6-5.0 MMOL/L Chloride Level 99 104 98-107 MMOL/L Carbon Dioxide Level 29 27 21-32 MMOL/L Anion Gap 14 10 5-14 MMOL/L Blood Urea Nitrogen 20 H 15 7-18 MG/DL Creatinine 0.66 0.67 0.60-1.30 MG/DL Estimat Glomerular Filtration Rate > 60 > 60 BUN/Creatinine Ratio 30 22 Glucose Level 109 H 100 70-105 MG/DL Calcium Level 10.6 H 9.6 8.5-10.1 MG/DL Corrected Calcium 8.5-10.1 MG/DL Total Bilirubin 0.3 0.1-1.0 MG/DL Aspartate Amino Transf (AST/SGOT) 21 5-34 U/L Alanine Aminotransferase (ALT/SGPT) 18 0-55 U/L Alkaline Phosphatase 75 40-136 U/L Troponin I < 0.30 <0.30 NG/ML Total Protein 7.5 6.4-8.2 GM/DL Albumin 4.6 H 3.2-4.5 GM/DL Triglycerides Level 185 H <150 MG/DL Cholesterol Level 170 < 200 MG/DL LDL Cholesterol Direct 110 1-129 MG/DL VLDL Cholesterol 37 5-40 MG/DL HDL Cholesterol 37 L 40-60 MG/DL Thyroid Stimulating Hormone (TSH) 1.78 0.35-4.94 UIU/ML Radiology CXR 11/15 unremarkable Physical Exam-([facility]) Physical Exam Vital Signs VS - Last 72 Hours, by Label 11/16/19 11/16/19 11/16/19 11/16/19 14:37 19:29 21:40 21:51 Temp 36.6 36.9 36.3 Pulse 80 72 68 Resp 17 18 20 B/P (MAP) 149/73 (98) 136/79 141/85 Pulse Ox 97 96 96 O2 Delivery Room Air Room Air Room Air Room Air 11/16/19 11/17/19 11/17/19 11/17/19 22:14 00:41 01:00 04:00 Temp 36.6 36.1 Pulse 53 60 53 81 Resp 18 18 B/P (MAP) 97/65 (76) 106/68 (81) Pulse Ox 96 93 O2 Delivery Room Air Room Air 11/17/19 11/17/19 11/17/19 05:13 07:00 08:00 Temp 36.1 36.0 Pulse 81 62 64 Resp 18 20 B/P (MAP) 106/68 (81) 99/66 (77) Pulse Ox 93 97 O2 Delivery Room Air Room Air Capillary Refill : Less Than 3 Seconds General Appearance: WD/WN, no apparent distress Respiratory: lungs clear, normal breath sounds Cardiovascular: no murmur, irregularly irregular Gastrointestinal: normal bowel sounds, non tender, soft Extremities: No pedal edema Neurologic/Psychiatric: alert, normal mood/affect Skin: normal color, warm/dry Assessment/Plan Assessment/Plan Admission Status: Inpatient Order (span 2 midnights) Reason for Inpatient Admission: Abnormal cardiac rhythm with underlying coronary artery disease (1) Chest pain Status: Acute Assessment & Plan: No ST elevation, troponin okay, but marked ectopy. Cardiology consulted, appreciate recommendations. (2) Cardiac arrhythmia Status: Acute Assessment & Plan: Cardiology consulted, appreciate recommendations. No hypotension. Qualifiers: Qualified Codes: I49.9 - Cardiac arrhythmia, unspecified (3) Coronary artery disease Status: Chronic Qualifiers: (4) Hypertension Status: Chronic Qualifiers: Qualified Codes: I10 - Essential (primary) hypertension (5) Hyperlipidemia Status: Chronic (6) DVT prophylaxis Status: Acute Assessment & Plan: Enoxaparin Clinical Quality Measures DVT/VTE Risk/Contraindication: Risk Factor Score Per Nursin RFS Level Per Nursing on Admit: 3=High SERENITY BLOCK MD Nov 17, 2019 11:26
[2019-11-17] MEDS: meTOprolol TARTRATE 25 MG (LOPRESSOR) TABLET PO SCH ×2 (12:42→20:52)
[2019-11-18] VITALS (15 sets, daily range): BP systolic 99–138; BP diastolic 55–83
[2019-11-18] MEDS ORDERED: CATHETER FLUSH 10 ML SYR IV PRN (07:30)
--- NOTE | 2019-11-18 08:00 | NUR ---
DOWN FOR STRESS TEST
[2019-11-18] MEDS ORDERED: REGADENOSON 0.4 MG/5 ML SYR (LEXISCAN) IV ONE (08:59)
[2019-11-18] MEDS ORDERED: lisINopril 20 MG (PRINIVIL) TABLET PO SCH (09:00)
[2019-11-18] MEDS ORDERED: HYDROCHLOROTHIAZIDE 12.5 MG (HCTZ) CAP PO SCH (09:00)
--- NOTE | 2019-11-18 09:06 | Pulmonary Consultation ---
History of Present Illness History of Present Illness Date Seen by Provider: Nov 18, 2019 Time Seen by Provider: 09:03 Date of Admission Reason for Visit: Chest pain Allergies and Home Medications Allergies Coded Allergies: No Known Drug Allergies (Unverified , 11/16/19) Home Medications Aspirin 81 Mg Tablet.dr, 81 MG PO DAILY, (Reported) Atorvastatin Calcium 20 Mg Tablet, 20 MG PO HS, (Reported) Lisinopril/Hydrochlorothiazide 1 Each Tablet, 1 EA PO DAILY, (Reported) Metoprolol Tartrate 50 Mg Tablet, 50 MG PO HS, (Reported) Multivitamin/Iron/Folic Acid 1 Each Tablet, 1 EACH PO DAILY, (Reported) [place]-3/Dha/Epa/Fish Oil 1 Each Capsule, 1 EACH PO BID, (Reported) Sertraline HCl 50 Mg Tablet, 50 MG PO DAILY, (Reported) Past Dnwakos-Dyvflp-Jacscv Hx Patient Social History Alcohol Use: Denies Use Recreational Drug Use: No 2nd Hand Smoke Exposure: No Recent Foreign Travel: No Contact w/Someone Who Travel: No Recent Infectious Disease Expo: No Recent Hopitalizations: No Physical Abuse: No Sexual Abuse: No Mistreated: No Fear: No Seasonal Allergies Seasonal Allergies: No Past Medical History Surgeries: Yes (colon resection, varicose vein stripping) Respiratory: No Cardiac: Yes Coronary Artery Disease, High Cholesterol, Hypertension, Palpitations Neurological: No Genitourinary: No Gastrointestinal: No Musculoskeletal: No Endocrine: No HEENT: No Cancer: Yes Colon Did You Recieve Any Treatments: Yes What Type of Treatment Did You: Surgical Intervention Psychosocial: No Integumentary: No Blood Disorders: No Family Medical History No Pertinent Family Hx Review of Systems Time Seen by Provider: 09:06 Sepsis Event Evaluation Height, Weight, BMI Height: '" Weight: lbs. oz. kg; 41.19 BMI Method: Exam Exam Vital Signs Date Time Temp Pulse Resp B/P (MAP) Pulse Ox O2 Delivery O2 Flow Rate FiO2 11/18/19 08:00 Room Air 11/18/19 07:55 96 Room Air 11/18/19 06:39 58 11/18/19 04:21 36.2 55 20 129/67 (87) 96 Room Air 11/18/19 01:00 50 11/18/19 00:00 36.4 59 21 116/62 (80) 96 Room Air 11/17/19 20:55 Room Air 11/17/19 20:19 36.3 53 16 122/57 (78) 96 Room Air 11/17/19 19:00 63 11/17/19 16:35 36.9 55 17 125/60 (81) 98 Room Air 11/17/19 12:08 80 11/17/19 12:00 36.0 69 20 108/74 (85) 95 Room Air I & O 11/18/19 07:00 Intake Total 980 ml Balance 980 ml Height & Weight Height: '" Weight: lbs. oz. kg; 41.19 BMI Method: General Appearance: No Apparent Distress HEENT: Normal ENT Inspection, Pharynx Normal Neck: Supple Respiratory: Lungs Clear Cardiovascular: No Edema, No JVD, No Murmur, Other (Frequent APCs, PVCs) Capillary Refill: Less Than 3 Seconds Gastrointestinal: normal bowel sounds, non tender, soft Extremity: Normal Inspection, No Calf Tenderness Neurologic/Psychiatric: Alert, Oriented x3, No Motor/Sensory Deficits, Normal Mood/Affect Skin: Normal Color, Warm/Dry Lymphatic: No Adenopathy Results Lab Laboratory Tests 11/16/19 15:20 11/17/19 05:25 Assessment/Plan Assessment/Plan CP with palpitations and PVCs -Cardiology following Suspected JUANITO with snorinng and EDS -Out pt testing -Will have pt f/u with me for PSG as out pt Morbid obesity r/o OHS -Check ABG -CXR is normal CAD hx ZARA GUILLEN DO Nov 18, 2019 09:06
--- NOTE | 2019-11-18 11:00 | NUR ---
RETURNED FROM STRESS TEST, ABGS DRAWN BY RT, DENIES PAIN OR SOB, CALL LIGHT WITHIN REACH
[2019-11-18] MEDS: ASPIRIN E.C. 81 MG (ECOTRIN) TAB PO SCH (11:11)
[2019-11-18] MEDS: SERTRALINE 50 MG (ZOLOFT) TABLET PO SCH (11:11)
[2019-11-18] MEDS: meTOprolol TARTRATE 25 MG (LOPRESSOR) TABLET PO SCH ×2 (11:12→21:38)
[2019-11-18] MEDS: ENOXAPARIN 40 MG/0.4 ML (LOVENOX) SYR SQ SCH ×2 (11:12→21:42)
[2019-11-18 11:38] LABS: ABG BASE EXCESS 4.3 MMOL/L (-2.5-2.5); ABG OXYGEN SATURATION 96 % (94-100); ABG PCO2 44 MMHG (35-45); ABG PH 7.42 (7.37-7.43); ABG PO2 78 MMHG (79-93); ABG TCO2 29.9 MMOL/L (21.0-31.0)
[2019-11-18 11:39] LABS: ALLENS TEST YES-POS; INSPIRED O2 ROOM AIR; PATIENT TEMP 36.5; VENTILATOR NO
[2019-11-18] MEDS ORDERED: NS IV 1000 ML 1,000 ML IV SCH (12:15)
[2019-11-18] MEDS ORDERED: HEParin (CATH LAB) 2,000 ML IV ONE (12:20)
[2019-11-18] MEDS ORDERED: LIDOCAINE 1% INJ 20 ML 20 ML VIAL ONE (12:20)
--- NOTE | 2019-11-18 13:59 | Cardiology Stress Test Report ---
Stress Test Report Date of Procedure/Referring: Date of Procedure: Nov 18, 2019 PCP Lisandra Block MD [facility] Indications: Chest pain Baseline Heart Rate: 63 Baseline Blood Pressure: Blood Pressure Systolic: 128 Blood Pressure Diastolic: 82 Baseline EKG: Baseline EKG: Normal sinus rhythm Summary/Conclusion Patient received 0.4 mg Lexiscan for stress test, ECG, heart rate and blood pressure were monitored continuously. Resting and stress dose of radio tracer were injected, imaging was acquired and reviewed in short axis, horizontal long axis and vertical long axis views. TID 1.02 SSS 17 SDS 16 EF 44% Conclusion 1. Patient tolerated Lexiscan well 2. Occasional PVCs noted during test, no EKG changes. 3. Reversible ischemia involving the whole inferior wall, inferolateral wall, inferior apex. 4. Normal left ventricular size with mild hypokinesia diffusely, EF 44 percent MEMO MARTINEZ MD Nov 18, 2019 13:59
--- NOTE | 2019-11-18 14:01 | Cardiac Procedure Note-CS/ASA ---
Pre-Procedure Note Pre-Op Procedure Note H&P Reviewed The H&P was reviewed, patient examined and no changes noted. Date H&P Reviewed: Nov 18, 2019 Time H&P Reviewed: 14:00 Conscious Sedation Pre-Proced Time 14:00 ASA Score 3 For ASA 3 and 4: Consider anesthesia and medical clearance. Also, for patients with a history of failed moderate sedation consider anesthesia. Airway Lungs Heart ASA score ASA 1: a normal healthy patient ASA 2: a patient with a mild systemic disease (mid diabetes, controlled hypertension, obesity x ASA 3: a patient with a severe systemic disease that limits activity (angina, COPD, prior Myocardial infarction) ASA 4: a patient with an incapacitating disease that is a constant threat to life (CHF, renal failure) ASA 5: a moribund patient not expected to survive 24 hrs. (ruptured aneurysm) ASA 6: a declared brain- patient whose organs are being harvested. For emergent operations, add the letter E after the classification Mallampati Classification Grade 3 Sedation Plan Analgesia, Amnesia, Plan communicated to team members, Discussed options with patient/fam, Discussed risks with patient/fam The patient is an appropriate candidate to undergo the planned procedure, sedation, and anesthesia. The patient immediately re-assessed prior to indication. MEMO MARTINEZ MD Nov 18, 2019 14:01
--- NOTE | 2019-11-18 14:35 | Cardiology Progress Note ---
Subjective Date Seen by Provider: Nov 18, 2019 Time Seen by Provider: 13:30 Subjective/Events-last exam Estephanie is sitting up in chair, underwent stress test earlier this morning. Denies any further episode of chest pain. Review of Systems General: No Chills, No Night Sweats, No Fatigue, No Malaise, No Appetite, No Other HEENT: No Head Aches, No Visual Changes, No Eye Pain, No Ear Pain, No Dysphasia, No Sinus Congestion, No Post Nasal Drip, No Sore Throat, No Other Pulmonary: No Dyspnea, No Cough, No Pleuritic Chest Pain, No Other Cardiovascular: No: Chest Pain, Palpitations, Orthopnea, Paroxysmal Noc. Dyspnea, Edema, Lt Headedness, Other Objective-Cardiology Exam Last Set of Vital Signs Vital Signs 11/18/19 15:46 Temp 36.0 Pulse 50 Resp 20 B/P (MAP) 132/74 (93) Pulse Ox 100 O2 Delivery Room Air Capillary Refill : Less Than 3 Seconds I&O Intake and Output 11/17/19 23:59 Intake Total 980 ml Balance 980 ml Intake Oral 980 ml # Voids 7 General: Alert, Oriented X3, Cooperative HEENT: Atraumatic, PERRLA Neck: Supple, No JVD, No Thyromegaly Lungs: Clear to Auscultation, Normal Air Movement Heart: Regular Rate, Normal S1, Normal S2, No Murmurs Abdomen: Normal Bowel Sounds, Soft, No Tenderness, No Hepatosplenomegaly, No Masses Extremities: No Clubbing, No Cyanosis, No Edema, Normal Pulses, No Tenderness/Swelling Skin: No Rashes, No Breakdown, No Significant Lesion Neuro: Normal Gait, Normal Speech, Strength at 5/5 X4 Ext, Normal Tone, Sensation Intact Psych/Mental Status: Mental Status NL, Mood NL A/P-Cardiology Admission Diagnosis Chest pain Palpitation Sinus bradycardia Ventricular premature contractions Assessment/Plan Chest pain nonspecific etiology, resembling angina, extensive cardiac history, stress test done this morning was abnormal, planning for [facility] for further evaluation. Palpitation, frequent APC and PVC, I'll start low-dose beta blockers, I doubt that she can tolerate. Due to bradycardia while asleep, probably has underlying sleep apnea. Coronary artery disease, history of stenting over 10 years ago, planning for [facility] Hypertension, monitor blood pressure Hyperlipidemia, has been on statin, monitor lipids Obesity, BMI 41, discussed weight loss Snoring, multiple risk factors for sleep apnea, recommend sleep study, consult Dr. Garza Patient was seen and evaluated with Radha, examination performed, management plan was discussed, agree with the current scribed note, I made few changes to the note using Italic font Patient is feeling better, her stress test is abnormal On examination lungs were clear to auscultation Planning for cardiac catheterization today Clinical Quality Measures DVT/VTE Risk/Contraindication: Risk Factor Score Per Nursin RFS Level Per Nursing on Admit: 3=High RADHA [place] Nov 18, 2019 14:35 MEMO MARTINEZ MD Nov 18, 2019 15:51
--- NOTE | 2019-11-18 15:04 | Progress Note ---
Subjective Subjective/Events-last exam Afebrile, feeling well, having less palpitations, hoping to go home. Objective Exam Last Set of Vital Signs Vital Signs Date Time Temp Pulse Resp B/P (MAP) Pulse Ox O2 Delivery O2 Flow Rate FiO2 11/18/19 13:13 59 11/18/19 12:00 35.8 20 128/82 (97) 99 Room Air Capillary Refill : Less Than 3 Seconds I&O Intake and Output 11/18/19 00:00 Intake Total 980 ml Balance 980 ml Intake Oral 980 ml # Voids 7 General: Alert, No Acute Distress Lungs: Clear to Auscultation, Normal Air Movement Heart: Regular Rate (frequent irregular beats) Psych/Mental Status: Mental Status NL Results/Procedures Lab Laboratory Tests 11/18/19 11:21: Blood Gas Puncture Site L RAD, Blood Gas Patient Temperature 36.5, Arterial Blood pH 7.42, Arterial Blood Partial Pressure CO2 44, Arterial Blood Partial Pressure O2 78L, Arterial Blood HCO3 29H, Arterial Blood Total CO2 29.9, Arterial Blood Oxygen Saturation 96, Arterial Blood Base Excess 4.3H, Tim Test YES-POS, Blood Gas Ventilator Setting NO, Blood Gas Inspired Oxygen ROOM AIR Radiology CXR 11/15 unremarkable Assessment/Plan Assessment/Plan (1) Chest pain Status: Acute Assessment & Plan: No ST elevation, troponin okay, but marked ectopy. Cardiology consulted, appreciate recommendations. 11/17 stress test abnormal, plan for cath per Cardiology (2) Cardiac arrhythmia Status: Acute Assessment & Plan: Cardiology consulted, appreciate recommendations. No hypotension. Qualifiers: Qualified Codes: I49.9 - Cardiac arrhythmia, unspecified (3) Coronary artery disease Status: Chronic Qualifiers: (4) Hypertension Status: Chronic Qualifiers: Qualified Codes: I10 - Essential (primary) hypertension (5) Hyperlipidemia Status: Chronic (6) DVT prophylaxis Status: Acute Assessment & Plan: Enoxaparin Clinical Quality Measures DVT/VTE Risk/Contraindication: Risk Factor Score Per Nursin RFS Level Per Nursing on Admit: 3=High SERENITY BENEDICT MD Nov 18, 2019 15:04
--- NOTE | 2019-11-18 15:38 | NUR ---
TO HEART CATH PER BED
[2019-11-18] MEDS ORDERED: MIDAZOLAM 5 MG/5 ML (VERSED) VIAL ONE (15:40)
[2019-11-18] MEDS ORDERED: fentaNYL INJECTION 100 MCG/2 ML AMP ONE (15:40)
[2019-11-18] MEDS ORDERED: HEParin 1000 UNIT/ML (10ML VIAL) FOR BOLUS ONE (16:04)
[2019-11-18] MEDS ORDERED: NITRO DRIP 25000 MCG/D5W 250 ML IV ONE (16:07)
[2019-11-18] MEDS ORDERED: ADENOSINE 3 MG/1 ML (ADENOSCAN) 30ML VIAL IV ONE (16:24)
[2019-11-18] MEDS ORDERED: NS IV 1000 ML 1,000 ML ONE (16:33)
[2019-11-18] MEDS ORDERED: PATIENT MAY USE OWN MEDS, ALL PO SCH (16:45)
--- NOTE | 2019-11-18 16:48 | Cardiac Cath Report ---
Cardiac Cath Report Physician (s)/House Manager (s) Physician MEMO MARTINEZ MD Pre-Procedure Diagnosis Pre-Procedure Diagnosis: CAD Post-Procedure Note Procedure Start Date: Nov 18, 2019 Name of Procedure: Left heart catheterization Left ventriculogram PTCA to RCA FFR to LAD Findings/Procedure Note PROCEDURE NOTE: 63-year-old lady with history of coronary artery disease admitted with chest pain, had an abnormal stress test with inferior wall ischemia. Scheduled for cardiac catheterization possible PTCA. After explaining the procedure to the patient, all pros and cons were explained, all questions were answered. The patient signed the consent and then she was placed on the cardiac catheterization laboratory. Groin was prepped SL fashion local anesthesia was used. Sheath placed in the artery. Luh right and left catheter were used to access the coronary system. Pigtail was used to access the left ventricular cavity. Left ventriculogram was not done, pressure was measured Patient was given 6000 units of heparin she has total occlusion of the right coronary artery that appeared to have occluded stent distally getting collaterals from the left. I decided to attempt intervention of the right coronary artery. FR guide was used, I used BMW wire and then whisper wire without success in crossing the lesion I used balloon angioplasty in the mid right coronary artery with mild inflammation to support the wire trying to tap over the Of the occlusion without success in crossing it. Subsequently I decided to abort the procedure. Patient had underlying lesion in the mid LAD that was giving supply to the right collaterals I decided to do FFR. FFR wire over JL guide was advanced baseline was 0.93. Abdomen is in over 2 minutes, FFR was 0.88 wire was removed medication noted At the end of the procedure the sheath was removed. Closure device was used FINDINGS: Hemodynamics LV 138/17, end-diastolic pressure of 17 Aorta 146/70 mean of 98 ANATOMY: Left Main is free of obstructive disease Left Anterior Descending has moderate stenosis at the midportion, FFR at baseline was 0.93, after adenosine challenge it was 0.88. Non-obstructive disease Left Circumflex has [id number] disease nonobstructive disease Right Coronory Artery is totally occluded at the midportion, attempt to cross the total occlusion with balloon inflation in the mid right coronary artery was not successful, the right coronary artery has occluded stent distally and receiving collaterals from the left system LV Gram was not done, pressure was measured CONCLUSION: 1. Total occlusion of the distal right coronary artery stent with good occlusion in the midright coronary artery receiving collaterals from the left, attempt to cross the occlusion with multiple wires and balloon inflation has failed. 2. Moderate stenosis at the mid LAD with FFR 0.88 after adenosine challenge 3. Mild disease in the circumflex artery. 4. Mildly elevated left ventricular end-diastolic pressure DISCUSSION AND RECOMMENDATION: Maximizing medical therapy is recommended no intervention is needed at this point Anesthesia Type: Conscious Sedation Estimated blood loss (mL): 50 ml Contrast Amount: 122 ml Total Radiation Dose: 1398 mGy Post-Procedure Diagnosis Post-operative diagnosis: Chest pain Coronary artery disease Hypertension Hyperlipidemia MEMO MARTINEZ MD Nov 18, 2019 16:48
--- NOTE | 2019-11-18 17:15 | NUR ---
patient arrived to room 508, post cardiac catheterization. VSS. Alert and oriented. Patient educated on 4 hours of bed rest.
[2019-11-18] MEDS: NS IV 1000 ML 1,000 ML IV SCH (18:42)
[2019-11-18] MEDS ORDERED: ACETAMINOPHEN 325 MG TABLET PO PRN (19:45)
[2019-11-18] MEDS ORDERED: ONDANSETRON 4 MG/2 ML (SDV) Z0FRAN IVP PRN (19:45)
[2019-11-18] MEDS ORDERED: IBUPROFEN 600 MG (MOTRIN) TAB PO PRN (19:45)
--- NOTE | 2019-11-18 19:49 | NUR ---
notified dr chao of pt having nausea, headache and inability to urinate using purewick while on bedrest. see order hx
[2019-11-18] MEDS ORDERED: ONDANSETRON 4 MG/2 ML (SDV) Z0FRAN ONE (19:50)
[2019-11-18] MEDS ORDERED: ACETAMINOPHEN 325 MG TABLET ONE (19:50)
--- NOTE | 2019-11-18 21:16 | NUR ---
CONFIRMED ORDER TO GIVE PT LOVENOX AT 9PM PER DR PHAM.
--- NOTE | 2019-11-18 22:51 | NUR ---
PT HERE AT THIS TIME. WILL ASSUME CARE OF PT. REPORT RECEIVED FROM MONALISA GO.
[2019-11-19] MEDS: NS IV 1000 ML 1,000 ML IV SCH (03:25)
[2019-11-19 04:55] VITALS: BP 104/60
[2019-11-19 06:21] LABS: BASOPHILS % (AUTO) 0 % (0-10); EOSINOPHILS # (AUTO) 0.1 10^3/uL (0.0-0.3); EOSINOPHILS % (AUTO) 2 % (0-10); HEMATOCRIT 40 % (35-52); HEMOGLOBIN 12.7 G/DL (11.5-16.0); LYMPHOCYTES # (AUTO) 1.3 X 10^3 (1.0-4.0); LYMPHOCYTES % (AUTO) 19 % (12-44); MEAN CORPUSCULAR HEMOGLOBIN 29 PG (25-34); MEAN CORPUSCULAR HGB CONC 32 G/DL (32-36); MEAN CORPUSCULAR VOLUME 92 FL (80-99); MEAN PLATELET VOLUME 10.6 FL (7.4-10.4); MONOCYTES # (AUTO) 0.5 X 10^3 (0.0-1.0); MONOCYTES % (AUTO) 7 % (0-12); NEUTROPHILS # (AUTO) 4.9 X 10^3 (1.8-7.8); NEUTROPHILS % (AUTO) 72 % (42-75); PLATELET COUNT 191 10^3/uL (130-400); RED CELL DISTRIBUTION WIDTH 13.4 % (10.0-14.5); WHITE BLOOD COUNT 6.8 10^3/uL (4.3-11.0)
[2019-11-19 06:30] LABS: CHLORIDE 106 MMOL/L (98-107); POTASSIUM 3.9 MMOL/L (3.6-5.0)
[2019-11-19 06:31] LABS: SODIUM 141 MMOL/L (135-145)
[2019-11-19 06:32] LABS: CALCIUM 9.1 MG/DL (8.5-10.1); GLUCOSE 98 MG/DL (70-105)
[2019-11-19 06:34] LABS: CARBON DIOXIDE 26 MMOL/L (21-32)
[2019-11-19 06:36] LABS: CREATININE SERUM 0.69 MG/DL (0.60-1.30); GFR ESTIMATED > 60
[2019-11-19 06:37] LABS: BUN/CREATININE RATIO 19
--- NOTE | 2019-11-19 06:56 | Pulmonary Progress Note ---
Subjective Time Seen by a Provider: 06:55 Subjective/Events-last exam No complications noted. Sepsis Event Evaluation Height, Weight, BMI Height: '" Weight: lbs. oz. kg; 41.19 BMI Method: Exam Exam Vital Signs Date Time Temp Pulse Resp B/P (MAP) Pulse Ox O2 Delivery O2 Flow Rate FiO2 11/19/19 04:55 36.1 50 16 104/60 (75) 96 Room Air 11/19/19 01:00 70 11/18/19 23:30 36.4 54 16 102/60 (74) 93 Room Air 11/18/19 22:52 Room Air 11/18/19 22:37 36.6 58 18 99/56 (70) 93 Room Air 11/18/19 21:31 49 16 120/59 (79) 94 Room Air 11/18/19 21:00 55 18 108/55 (72) 98 Room Air 11/18/19 20:05 65 18 108/55 (72) 98 Room Air 11/18/19 20:00 98 Room Air 11/18/19 19:55 48 18 106/62 (77) 98 Room Air 11/18/19 19:00 54 11/18/19 18:15 48 18 121/79 (93) 98 Room Air 11/18/19 18:00 48 18 109/70 (83) 97 Room Air 11/18/19 17:45 48 18 131/83 (99) 97 Room Air 11/18/19 17:30 50 18 138/83 (101) 99 Room Air 11/18/19 17:15 36.8 49 18 131/83 (99) 97 Room Air 11/18/19 15:46 36.0 50 20 132/74 (93) 100 Room Air 11/18/19 13:13 59 11/18/19 12:00 35.8 53 20 128/82 (97) 99 Room Air 11/18/19 08:00 Room Air 11/18/19 07:55 96 Room Air I & O 11/19/19 07:00 Intake Total 840 ml Output Total 450 ml Balance 390 ml Height & Weight Height: '" Weight: lbs. oz. kg; 41.19 BMI Method: General Appearance: No Apparent Distress HEENT: Normal ENT Inspection, Pharynx Normal Neck: Supple Respiratory: Lungs Clear Cardiovascular: No Edema, No JVD, No Murmur, Other (Frequent APCs, PVCs) Capillary Refill: Greater Than 3 Seconds Gastrointestinal: normal bowel sounds, non tender, soft Extremity: Normal Inspection, No Calf Tenderness Neurologic/Psychiatric: Alert, Oriented x3, No Motor/Sensory Deficits, Normal Mood/Affect Skin: Normal Color, Warm/Dry Lymphatic: No Adenopathy Results Lab Laboratory Tests 11/19/19 05:37 Assessment/Plan Assessment/Plan CP with palpitations and PVCs -Cardiology following Suspected JUANITO with snorinng and EDS -Out pt testing -Will have pt f/u with me for PSG as out pt Morbid obesity r/o OHS -CXR is normal CAD s/p ZARA Ferro DO Nov 19, 2019 06:56
[2019-11-19 07:45] VITALS: BP 111/75
[2019-11-19] MEDS ORDERED: lisINopril 10 MG (PRINIVIL) TABLET PO SCH (09:00)
--- NOTE | 2019-11-19 09:09 | Cardiology Progress Note ---
Subjective Date Seen by Provider: Nov 19, 2019 Time Seen by Provider: 09:07 Subjective/Events-last exam Patient is sitting in bed, feeling better. No new complaint. Mild discomfort in her groin, no hematoma Review of Systems General: No Chills, No Night Sweats, No Fatigue, No Malaise, No Appetite, No Other HEENT: No Head Aches, No Visual Changes, No Eye Pain, No Ear Pain, No Dysphasia, No Sinus Congestion, No Post Nasal Drip, No Sore Throat, No Other Pulmonary: No Dyspnea, No Cough, No Pleuritic Chest Pain, No Other Cardiovascular: No: Chest Pain, Palpitations, Orthopnea, Paroxysmal Noc. Dyspnea, Edema, Lt Headedness, Other Objective-Cardiology Exam Last Set of Vital Signs Vital Signs 11/19/19 07:45 Temp 36.2 Pulse 51 Resp 18 B/P (MAP) 111/75 (87) Pulse Ox 97 O2 Delivery Room Air Capillary Refill : Greater Than 3 Seconds I&O Intake and Output 11/19/19 00:00 Intake Total 440 ml Output Total 450 ml Balance -10 ml Intake Oral 440 ml Output Urine Total 450 ml # Voids 3 General: Alert, Oriented X3, Cooperative, No Acute Distress HEENT: Atraumatic, PERRLA Neck: Supple, No JVD, No Thyromegaly Lungs: Clear to Auscultation, Normal Air Movement Heart: Regular Rate (frequent irregular beats), Normal S1, Normal S2 Abdomen: Normal Bowel Sounds, Soft, No Tenderness, No Hepatosplenomegaly, No Masses Extremities: No Clubbing, No Cyanosis, No Edema, Normal Pulses, No Tenderness/Swelling Skin: No Rashes, No Breakdown, No Significant Lesion Neuro: Normal Gait, Normal Speech, Strength at 5/5 X4 Ext, Normal Tone, Sensation Intact Psych/Mental Status: Mental Status NL Results Lab Laboratory Tests 11/19/19 05:37 A/P-Cardiology Admission Diagnosis Chest pain Palpitation Sinus bradycardia Ventricular premature contractions Assessment/Plan Chest pain, unstable angina, cardiac catheterization showed occluded right coronary artery, had an old stent, attempt for intervention has failed to reestablish flow in that artery, had a lesion in the LAD and FFR was not significant. Medical therapy is recommended 1. Total occlusion of the distal right coronary artery stent with good occlusion in the midright coronary artery receiving collaterals from the left, attempt to cross the occlusion with multiple wires and balloon inflation has failed. 2. Moderate stenosis at the mid LAD with FFR 0.88 after adenosine challenge 3. Mild disease in the circumflex artery. 4. Mildly elevated left ventricular end-diastolic pressure Palpitation, frequent APC and PVC, started on low-dose beta blockers and tolerating it well. Continue to monitor Hyperlipidemia, has been on statin, monitor lipids Obesity, BMI 41, discussed weight loss Snoring, multiple risk factors for sleep apnea, recommend sleep study, consult Dr. Garza Clinical Quality Measures DVT/VTE Risk/Contraindication: Risk Factor Score Per Nursin RFS Level Per Nursing on Admit: 3=High MEMO MARTINEZ MD Nov 19, 2019 09:09
[2019-11-19] MEDS ORDERED: METO-333 PO (09:11)
[2019-11-19] MEDS ORDERED: LISI10TA2 PO (09:11)
--- NOTE | 2019-11-19 09:11 | Discharge Inst-Post CATH ---
Discharge Inst-CATH/EP Problems Reviewed?: Yes Post Cardiac Cath/EP D/C Inst Follow Up/Plan Appointment With Dr. MARTINEZ's office in 2-4 weeks <b>CARDIAC CATH/EP PROCEDURE DISCHARGE INSTRUCTIONS</b> ACTIVITY * Go Home directly and rest. * Limit activity of the leg (or wrist if it was used) for 7 days including aerobics, swimming, jogging, bicycling, etc. * Restrict stair-climbing for 7 days if possible, if not, climb up with your non-cath leg, then bring together on the same step. * Avoid lifting, pushing, pulling or excessive movement of the affected extremity for 7 days. * Customary sexual activity may be resumed after 2 days-use caution not to use a position that strains or causes pain to the affected extremity. * No driving for 24 hours. * NO SMOKING. * Avoid straining for bowel movements for 7 days. * Gentle walking on level ground is allowed. * Returning to work will depend on the type of procedure and the results. Your doctor will discuss this with you. CALL YOUR DOCTOR FOR ANY OF THE FOLLOWING: *If bleeding from the puncture site occurs- Apply gentle pressure to site with clean cloth and call your doctor or EMS. * If a knot or lump forms under the skin, increases in size, or causes pain. * If bruising appears to be worsening or moving further down your leg instead of disappearing. * Temperature above 101 F. CARE OF YOUR GROIN INCISION; * Bruising or purple discoloration of the skin near the puncture site is common. * You may shower only, no bathtub bathing for 5 days. Be careful to avoid slipping as your leg may feel stiff. * If a closure device was used on your femoral artery, please see the attached guide regarding care of the device and your leg. * Leave dressing on FOR 24 hours. CARE OF YOUR WRIST INCISION; * Bruising or purple discoloration of the skin near the puncture site is common. * You may shower. * DO NOT submerge wrist. * Leave dressing on FOR 24 hours. MEMO MARTINEZ MD Nov 19, 2019 09:11
[2019-11-19] MEDS: SERTRALINE 50 MG (ZOLOFT) TABLET PO SCH (09:25)
[2019-11-19] MEDS: ASPIRIN E.C. 81 MG (ECOTRIN) TAB PO SCH (09:25)
[2019-11-19] MEDS: ENOXAPARIN 40 MG/0.4 ML (LOVENOX) SYR SQ SCH (09:26)
[2019-11-19] MEDS: meTOprolol TARTRATE 25 MG (LOPRESSOR) TABLET PO SCH (10:26)
--- NOTE | 2019-11-19 10:49 | Discharge Summary ---
Discharge Summary Hospital Course Problems Reviewed?: Yes Problems/Diagnosis: (1) Chest pain Status: Resolved Resolution Date/Time: 11/19/19 @ 10:44 Assessment & Plan: No ST elevation, troponin okay, but marked ectopy. Cardiology consulted, appreciate recommendations. 11/17 stress test abnormal, plan for cath per Cardiology- see CAD diagnosis (2) Cardiac arrhythmia Status: Acute Assessment & Plan: Cardiology consulted, appreciate recommendations. No hypotension. Metoprolol 25 mg per Cardiology, adjusted BP medications Qualifiers: Qualified Codes: I49.9 - Cardiac arrhythmia, unspecified (3) Coronary artery disease Status: Chronic Assessment & Plan: Cardiac cath on 11/[address] Higuera showed occlusion of RCA with occlusion of prior stent, unable to balloon, collaterals noted, maximize medical management and will follow up with Dr. Higuera outpatient. Qualifiers: (4) Hypertension Status: Chronic Qualifiers: Qualified Codes: I10 - Essential (primary) hypertension (5) Hyperlipidemia Status: Chronic Hospital Course Date of Admission: Nov 16, 2019 at 16:50 Admission Diagnosis : Family Physician/Provider: Azra Patterson Aprn Date of Discharge: 11/19/19 Discharge Diagnosis: See problem list Hospital Course: See problem list Labs and Pending Lab Test: Laboratory Tests 11/18/19 11:21: Blood Gas Puncture Site L RAD, Blood Gas Patient Temperature 36.5, Arterial Blood pH 7.42, Arterial Blood Partial Pressure CO2 44, Arterial Blood Partial Pressure O2 78L, Arterial Blood HCO3 29H, Arterial Blood Total CO2 29.9, Arterial Blood Oxygen Saturation 96, Arterial Blood Base Excess 4.3H, Tim Test YES-POS, Blood Gas Ventilator Setting NO, Blood Gas Inspired Oxygen ROOM AIR 11/19/19 05:37: White Blood Count 6.8, Red Blood Count 4.35, Hemoglobin 12.7, Hematocrit 40, Mean Corpuscular Volume 92, Mean Corpuscular Hemoglobin 29, Mean Corpuscular Hemoglobin Concent 32, Red Cell Distribution Width 13.4, Platelet Count 191, Mean Platelet Volume 10.6H, Neutrophils (%) (Auto) 72, Lymphocytes (%) (Auto) 19, Monocytes (%) (Auto) 7, Eosinophils (%) (Auto) 2, Basophils (%) (Auto) 0, Neutrophils # (Auto) 4.9, Lymphocytes # (Auto) 1.3, Monocytes # (Auto) 0.5, Eosinophils # (Auto) 0.1, Basophils # (Auto) 0.0, Sodium Level 141, Potassium Level 3.9, Chloride Level 106, Carbon Dioxide Level 26, Anion Gap 9, Blood Urea Nitrogen 13, Creatinine 0.69, Estimat Glomerular Filtration Rate > 60, BUN/Creatinine Ratio 19, Glucose Level 98, Calcium Level 9.1 Home Meds Active Reported Aspirin EC (Aspirin) 81 Mg Tablet. 81 Mg PO DAILY Hurricane 3 500 Softgel (Hurricane-3/Dha/Epa/Fish Oil) 1 Each Capsule 1 Each PO BID Centrum Women Tablet (Multivitamin/Iron/Folic Acid) 1 Each Tablet 1 Each PO DAILY Metoprolol Tartrate 50 Mg Tablet 50 Mg PO HS Atorvastatin Calcium 20 Mg Tablet 20 Mg PO HS Lisinopril-Hctz 20-12.5 mg Tab (Lisinopril/Hydrochlorothiazide) 1 Each Tablet 1 Ea PO DAILY Sertraline HCl 50 Mg Tablet 50 Mg PO DAILY Assessment/Pt DC Instructions Follow up with Azra Patterson on 11/25 at 1:20 pm. Follow up with Dr. Higuera as directed. Discharge Diet: Cardiac Diet Activity as Tolerated: No (per cardiac cath follow up instructions) Orders-Post D/C & Referrals Pneu Vac Indicated: Yes Discharge Physical Examination Allergies: Coded Allergies: No Known Drug Allergies (Unverified , 11/16/19) General Appearance: No Apparent Distress, WD/WN Respiratory: Lungs Clear, Normal Breath Sounds Cardiovascular: Regular Rate, Rhythm (occasional irregular beat) Skin: Normal Color, Warm/Dry Neurologic/Psychiatric: Alert, Normal Mood/Affect Copy Copies To 1: Azra Patterson APRN Clinical Quality Measures DVT/VTE Risk/Contraindication: Risk Factor Score Per Nursin RFS Level Per Nursing on Admit: 3=High SERENITY BENEDICT MD Nov 19, 2019 10:49
[2019-11-19 11:19] VITALS: BP 111/72
[2019-11-19 13:39] VITALS: BP 111/72
== END 2019-11-19 13:39 | disposition home or self-care (01) | DRG 287 ==
LOC: EDUNIT# 14:32 → ER FS 14:33 → 4TH 16:50
PROVIDERS: ADMIT Family Medicine; ATTEND Family Medicine
PROC: 4A033BC Measurement of Arterial Pressure, Coronary, Percutaneous Approach (ICD-10-PCS; principal; 2019-11-18)
PROC: 4A023N7 Measurement of Cardiac Sampling and Pressure, Left Heart, Percutaneous Approach (ICD-10-PCS; 2019-11-18)
PROC: B2111ZZ Fluoroscopy of Multiple Coronary Arteries using Low Osmolar Contrast (ICD-10-PCS; 2019-11-18)
PROC: B2151ZZ Fluoroscopy of Left Heart using Low Osmolar Contrast (ICD-10-PCS; 2019-11-18)
PROC: 02JA3ZZ Inspection of Heart, Percutaneous Approach (ICD-10-PCS; 2019-11-18)
DX: I49.3 Ventricular premature depolarization (principal); Z68.41 Body mass index [BMI] 40.0-44.9, adult; I25.110 Atherosclerotic heart disease of native coronary artery with unstable angina pectoris; I49.1 Atrial premature depolarization; I10 Essential (primary) hypertension; E78.00 Pure hypercholesterolemia, unspecified; E66.01 Morbid (severe) obesity due to excess calories; M54.9 Dorsalgia, unspecified; G47.30 Sleep apnea, unspecified; Z85.038 Personal history of other malignant neoplasm of large intestine; Z95.5 Presence of coronary angioplasty implant and graft; Z90.49 Acquired absence of other specified parts of digestive tract
CPT/HCPCS: 36415; 36600; 71045; 78452; 80048; 80053; 80061; 82805; 84443; 84484; 85025; 85027; 85347; 93005; 93017; 93041; 93306; 93458; 96374

== ENCOUNTER 2019-12-28 12:57 | Outpatient (CLI) | payer BC, MEDICARE ==
[~2019-12-28 12:57] MED LIST: ASPI-983 PO; ATOR20TA66 PO; LISI10TA2 PO; LISI1TAB25 PO; METO-333 PO; METO50TA15 PO; MULT-1060 PO; OMEG-141 PO; SERT50TA9 PO
== END 2019-12-28 13:23 | disposition home or self-care (01) ==
LOC: SLEEP 12:57
PROVIDERS: ATTEND Otolaryngology Otolaryngology/Facial Plastic Surgery
DX: G47.33 Obstructive sleep apnea (adult) (pediatric) (principal); I10 Essential (primary) hypertension; R00.1 Bradycardia, unspecified

== ENCOUNTER → 2020-02-29 | Outpatient (CLI) | payer BC, MEDICARE ==
[~2020-02-29] MED LIST changes: +ASPI-1238 PO; -ASPI-983 PO; -LISI1TAB25 PO; +LISI1TAB46 PO
[2020-02-29 10:02] LABS: BASOPHILS % (AUTO) 1 % (0-10); EOSINOPHILS # (AUTO) 0.2 10^3/uL (0.0-0.3); EOSINOPHILS % (AUTO) 4 % (0-10); HEMATOCRIT 43 % (35-52); HEMOGLOBIN 13.6 g/dL (11.5-16.0); LYMPHOCYTES # (AUTO) 1.6 10^3/uL (1.0-4.0); LYMPHOCYTES % (AUTO) 27 % (12-44); MEAN CORPUSCULAR HEMOGLOBIN 29 pg (25-34); MEAN CORPUSCULAR HGB CONC 31 g/dL (32-36); MEAN CORPUSCULAR VOLUME 91 fL (80-99); MEAN PLATELET VOLUME 10.5 fL (9.0-12.2); MONOCYTES # (AUTO) 0.5 10^3/uL (0.0-1.0); MONOCYTES % (AUTO) 8 % (0-12); NEUTROPHILS # (AUTO) 3.5 10^3/uL (1.8-7.8); NEUTROPHILS % (AUTO) 60 % (42-75); PLATELET COUNT 203 10^3/uL (130-400); WHITE BLOOD COUNT 5.8 10^3/uL (4.3-11.0)
[2020-02-29 10:22] LABS: ALANINE AMINOTRANSFERASE 19 U/L (0-55); ALBUMIN 4.1 GM/DL (3.2-4.5); ALKALINE PHOSPHATASE 63 U/L (40-136); BILIRUBIN,TOTAL 0.7 MG/DL (0.1-1.0); BUN/CREATININE RATIO 19; CALCIUM 9.5 MG/DL (8.5-10.1); CARBON DIOXIDE 26 MMOL/L (21-32); CHLORIDE 104 MMOL/L (98-107); CREATININE SERUM 0.68 MG/DL (0.60-1.30); GFR ESTIMATED > 60; GLUCOSE 93 MG/DL (70-105); POTASSIUM 4.2 MMOL/L (3.6-5.0); SODIUM 140 MMOL/L (135-145); TOTAL PROTEIN 6.9 GM/DL (6.4-8.2)
== END ==
LOC: ONC 09:50
PROVIDERS: ATTEND Internal Medicine Hematology & Oncology
DX: C18.6 Malignant neoplasm of descending colon (principal); I25.10 Atherosclerotic heart disease of native coronary artery without angina pectoris; I10 Essential (primary) hypertension; E78.2 Mixed hyperlipidemia; E66.01 Morbid (severe) obesity due to excess calories; Z92.21 Personal history of antineoplastic chemotherapy; Z87.19 Personal history of other diseases of the digestive system; Z92.3 Personal history of irradiation; Z90.49 Acquired absence of other specified parts of digestive tract
CPT/HCPCS: 80053; 82378; 85025; G0463; 99213

== ENCOUNTER → 2020-08-03 | Outpatient (CLI) | payer BC, MEDICARE ==
[~2020-08-03] MED LIST changes: -LISI10TA2 PO; +LISI10TA25 PO; +SERT-413 PO; -SERT50TA9 PO
[2020-08-03 09:25] LABS: ALANINE AMINOTRANSFERASE 26 U/L (0-55); ALBUMIN 4.4 GM/DL (3.2-4.5); ALKALINE PHOSPHATASE 72 U/L (40-136); BILIRUBIN,TOTAL 0.9 MG/DL (0.1-1.0); BUN/CREATININE RATIO 20; CALCIUM 9.6 MG/DL (8.5-10.1); CARBON DIOXIDE 28 MMOL/L (21-32); CHLORIDE 101 MMOL/L (98-107); CHOLESTEROL 166 MG/DL (< 200); GFR ESTIMATED > 60; GLUCOSE 97 MG/DL (70-105); HDL CHOLESTEROL 45 MG/DL (40-60); POTASSIUM 4.5 MMOL/L (3.6-5.0); SODIUM 141 MMOL/L (135-145); TOTAL PROTEIN 7.4 GM/DL (6.4-8.2); TRIGLYCERIDES 129 MG/DL (<150); VLDL CHOLESTEROL 26 MG/DL (5-40)
== END ==
LOC: CARD 08:43
PROVIDERS: ATTEND Internal Medicine Cardiovascular Disease
DX: I11.9 Hypertensive heart disease without heart failure (principal); I34.0 Nonrheumatic mitral (valve) insufficiency
CPT/HCPCS: 36415; 80053; 80061; 93306

== ENCOUNTER → 2021-03-13 | Outpatient (CLI) | payer BC, MEDICARE ==
[2021-03-13 10:06] LABS: BASOPHILS % (AUTO) 1 % (0-10); EOSINOPHILS # (AUTO) 0.3 10^3/uL (0.0-0.3); EOSINOPHILS % (AUTO) 4 % (0-10); HEMATOCRIT 45 % (35-52); HEMOGLOBIN 14.5 g/dL (11.5-16.0); LYMPHOCYTES % (AUTO) 26 % (12-44); MEAN CORPUSCULAR HEMOGLOBIN 30 pg (25-34); MEAN CORPUSCULAR HGB CONC 32 g/dL (32-36); MEAN CORPUSCULAR VOLUME 93 fL (80-99); MEAN PLATELET VOLUME 10.2 fL (9.0-12.2); MONOCYTES # (AUTO) 0.6 10^3/uL (0.0-1.0); MONOCYTES % (AUTO) 8 % (0-12); NEUTROPHILS # (AUTO) 4.6 10^3/uL (1.8-7.8); NEUTROPHILS % (AUTO) 61 % (42-75); PLATELET COUNT 229 10^3/uL (130-400); WHITE BLOOD COUNT 7.5 10^3/uL (4.3-11.0)
== END ==
LOC: ONC 09:58
PROVIDERS: ATTEND Internal Medicine Hematology & Oncology
DX: C18.6 Malignant neoplasm of descending colon (principal); I10 Essential (primary) hypertension; Z90.49 Acquired absence of other specified parts of digestive tract; Z92.21 Personal history of antineoplastic chemotherapy; Z92.3 Personal history of irradiation; Z85.05 Personal history of malignant neoplasm of liver
CPT/HCPCS: 82378; 85025; G0463; 99213

== ENCOUNTER 2022-01-04 10:57 | Emergency (ER) | payer BC, MEDICARE ==
[~2022-01-04] VITALS: Ht 157.5 cm; Wt 95.3 kg
--- NOTE | 2022-01-04 11:28 | ED Chest Pain ---
General Chief Complaint: Chest Pain Stated Complaint: CHEST TIGHTNESS Nursing Triage Note: PT AMBULATE TO ROOM 03 WITH C/O CHEST TIGHTNESS SINCE SATURDAY. PT REPORTS BEING SEEN AT [facility] AND HAD AN EKG AND COVID TEST. Source: patient Exam Limitations: no limitations History of Present Illness Date Seen by Provider: Jan 04, 2022 Time Seen by Provider: 11:15 Initial Comments Patient is a 66-year-old female history of coronary artery disease patient of Dr. Higuera who presents to the emergency department with a chief complaint of "I just do not feel good" as well as chest tightness over the last 3 to 4 days. Patient recently spent some time in [employer] 4 days ago. She states since gettin g back she has noticed this chest tightness which seems to come and go. Nothing really precipitates it. She states she is nauseated. Not really short of breath. No fevers or chills. She is fully COVID vaccinated with 2 boosters. No swelling in her legs. No URI symptoms. No bowel or bladder complaints. She did take a laxative in the last 24 hours for some constipation. She states she is compliant with her medications. She had a blockage in her stent a couple of years ago and she states this pain i s similar to that. Although not as intense. She has a follow-up appointment scheduled with Dr. Higuera on January 25. She is not a diabetic. She does not smoke. She is overweight. All other review of systems reviewed and negative except as stated. 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 NTG SL COMMUNITY HEALTH EDUCATION COORDINATOR: No Associated Symptoms: nausea/vomiting Allergies and Home Medications Allergies Coded Allergies: No Known Drug Allergies (Unverified , 11/16/19) Patient Home Medication List Home Medication List Reviewed: Yes Aspirin (Aspirin EC) 81 Mg Tablet., 81 MG PO DAILY, (Reported) Entered as Reported by: DONTE HUGHES on 11/17/19 1033 Atorvastatin Calcium (Atorvastatin Calcium) 20 Mg Tablet, 20 MG PO HS, (Re ported) Entered as Reported by: DONTE HUGHES on 11/17/19 1033 Lisinopril (Lisinopril) 10 Mg Tablet, 10 MG PO DAILY Prescribed by: ELBA ZELAYA on 11/19/19 1220 Metoprolol Tartrate (Metoprolol Tartrate) 25 Mg Tablet, 12.5 MG PO BID Prescribed by: ELBA ZELAYA on 11/19/19 1220 Multivitamin/Iron/Folic Acid (Centrum Women Tablet) 1 Each Tablet, 1 EACH PO DAILY, (Reported) Entered as Reported by: DONTE HUGHES on 11/17/19 1033 Daisy-3/Dha/Epa/Fish Oil (Daisy 3 500 Softgel) 1 Each Capsule, 1 EACH PO BID, (Reported) Entered as Reported by: DONTE HUGEHS on 11/17/19 1033 Sertraline HCl (Sertraline HCl) 50 Mg Tablet, 50 MG PO DAILY, (Reported) Entered as Reported by: DONTE HUGHES on 11/17/19 1033 Review of Systems Review of Systems Constitutional: see HPI EENTM: No Symptoms Reported Respiratory: SOA With Exertion Cardiovascular: Chest Pain ("tightness") Gastrointestinal: Nausea Genitourinary: No Symptoms Reported Musculoskeletal: no symptoms reported Skin: no symptoms reported Psychiatric/Neurological: No Symptoms Reported All Other Systems Reviewed Negative Unless Noted: Yes Past Gunowsm-Dmwjyz-Drcyvs Hx Patient Social History Tobacco Use?: No Smoking Status: Never a Smoker Smokeless Tobacco Frequency: Never a User Use of E-Cig and/or Vaping dev: No Use of E-Cig and/or Vaping Jamey: Never a User Substance use?: No Alcohol Use?: No Pt feels they are or have been: No Seasonal Allergies Seasonal Allergies: No Past Medical History Surgeries: Yes (colon resection, varicose vein stripping) Respiratory: No Cardiac: Yes Coronary Artery Disease, High Cholesterol, Hypertension, Palpitations Neurological: No Genitourinary: No Gastrointestinal: No Musculoskeletal: No Endocrine: No HEENT: No Cancer: Yes Colon Did You Recieve Any Treatments: Yes What Type of Treatment Did You: Surgical Intervention Psychosocial: No Integumentary: No Blood Disorders: No Family Medical History No Pertinent Family Hx Physical Exam Vital Signs Vital Signs - First Documented 01/04/22 11:00 Temp 36.3 Pulse 61 Resp 18 B/P (MAP) 172/90 (117) O2 Delivery Room Air Capillary Refill : Less Than 3 Seconds Height, Weight, BMI Height: '" Weight: lbs. oz. kg; 38.00 BMI Method: General Appearance: No Apparent Distress, WD/WN, Obese HEENT: PERRL/EOMI Neck: Normal Inspection Respiratory: Lungs Clear, Normal Breath Sounds, No Accessory Muscle Use, No Respiratory Distress Cardiovascular: Regular Rate, Rhythm, Bradycardia (50's) Gastrointestinal: Non Tender, Soft Extremity: Normal Capillary Refill, Normal Inspection, Normal Range of Motion, Non Tender, No Calf Tenderness, No Pedal Edema Neurologic/Psychiatric: Alert, Oriented x3, No Motor/Sensory Deficits, Normal Mood/Affect, stepdown nurse II-XII Norm as Tested Skin: Normal Color, Warm/Dry Progress/Results/Core Measures Results/Orders Lab Results Laboratory Tests Test 01/04/22 11:10 01/04/22 11:28 Range/Units White Blood Count 8.6 4.3-11.0 10^3/uL Red Blood Count 4.92 3.80-5.11 10^6/uL Hemoglobin 14.4 11.5-16.0 g/dL Hematocrit 45 35-52 % Mean Corpuscular Volume 91 80-99 fL Mean Corpuscular Hemoglobin 29 25-34 pg Mean Corpuscular Hemoglobin Concent 32 32-36 g/dL Red Cell Distribution Width 13.1 10.0-14.5 % Platelet Count 218 130-400 10^3/uL Mean Platelet Volume 10.5 9.0-12.2 fL Immature Granulocyte % (Auto) 0 % Neutrophils (%) (Auto) 70 42-75 % Lymphocytes (%) (Auto) 20 12-44 % Monocytes (%) (Auto) 6 0-12 % Eosinophils (%) (Auto) 3 0-10 % Basophils (%) (Auto) 1 0-10 % Neutrophils # (Auto) 6.0 1.8-7.8 10^3/uL Lymphocytes # (Auto) 1.7 1.0-4.0 10^3/uL Monocytes # (Auto) 0.5 0.0-1.0 10^3/uL Eosinophils # (Auto) 0.2 0.0-0.3 10^3/uL Basophils # (Auto) 0.0 0.0-0.1 10^3/uL Immature Granulocyte # (Auto) 0.0 0.0-0.1 10^3/uL Prothrombin Time 12.7 12.2-14.7 SEC INR Comment 0.9 0.8-1.4 Activated Partial Thromboplast Time 24 24-35 SEC Sodium Level 142 135-145 MMOL/L Potassium Level 4.5 3.6-5.0 MMOL/L Chloride Level 103 98-107 MMOL/L Carbon Dioxide Level 26 21-32 MMOL/L Anion Gap 13 5-14 MMOL/L Blood Urea Nitrogen 15 7-18 MG/DL Creatinine 0.72 0.60-1.30 MG/DL Estimat Glomerular Filtration Rate 91 BUN/Creatinine Ratio 21 Glucose Level 106 H 70-105 MG/DL Calcium Level 9.8 8.5-10.1 MG/DL Corrected Calcium 9.5 8.5-10.1 MG/DL Magnesium Level 2.0 1.6-2.4 MG/DL Total Bilirubin 0.7 0.1-1.0 MG/DL Aspartate Amino Transf (AST/SGOT) 24 5-34 U/L Alanine Aminotransferase (ALT/SGPT) 24 0-55 U/L Alkaline Phosphatase 72 40-136 U/L Myoglobin 34.1 10.0-92.0 NG/ML Troponin I < 0.028 <0.028 NG/ML B-Type Natriuretic Peptide 58.4 <100.0 PG/ML Total Protein 7.6 6.4-8.2 GM/DL Albumin 4.4 3.2-4.5 GM/DL SARS-CoV-2 RNA (RT-PCR) Not Detected Not Detecte My Orders Orders - DILEEP MAYA MD Covid 19 Inhouse Test (01/04/22 11:56) Isolation Central Supply Req (01/04/22 11:56) Medications Given in ED Current Medications Medications Dose Ordered Sig/Saeid Route Start Time Stop Time Status Last Admin Dose Admin Aspirin 324 mg ONCE ONCE PO 01/04/22 11:30 01/04/22 11:31 DC 01/04/22 11:47 324 MG Vital Signs/I&O 01/04/22 11:00 Temp 36.3 Pulse 61 Resp 18 B/P (MAP) 172/90 (117) O2 Delivery Room Air Blood Pressure Mean: 117 Progress Progress Note : Time: 13:04 Progress Note Case has been discussed with Dr. Higuera. He will see her in clinic on Saturday. She has had no chest pain whatsoever today, no tightness. Her labs are reviewed, everything is normal. She is COVID-negative. Troponin is negative. I have reassured her. I have recommended that she continue her daily medications. Hydration. Rest. Good nutrition. If she should have any return of symptoms or worsening especially with sweating, shortness of breath or nausea she needs to come back to the emergency room for reevaluation. Initial ECG Impression Date: Jan 04, 2022 Initial ECG Impression Time: 11:21 Initial ECG Rate: 58 Initial ECG Rhythm: S.Mac Initial ECG Intervals: Normal Initial ECG Impression: Normal Comment No ST segment elevation or depression is noted. Nonspecific ST-T wave change in lead III alone. No ectopy Diagnostic Imaging Diagonstic Imaging: Xray Plain Films/CT/US/NM/MRI: chest Comments NAME: ALONA MAURER [facility] REC#: [id number] PT STATUS: REG ER : 1955 PHYSICIAN: ELIZABETH NAYAK ADMIT DATE: 01/04/22/ER Draft Date of Exam:01/04/22 CHEST 1 VIEW, AP/PA ONLY INDICATION: Chest tightness. TIME OF EXAM: 11:49 a.m. COMPARISON: Correlation is made with prior chest 11/16/2019. FINDINGS: The heart size is normal. The pulmonary vascularity is unremarkable. The lungs are clear. No infiltrate, effusion or pneumothorax is detected. IMPRESSION: No acute cardiopulmonary process is detected. Dictated on workstation # [id number] Dict: 01/04/22 1159 Trans: 01/04/22 1201 [id number] Interpreted by: FRANCES MENDOZA MD Electronically signed by: Departure Communication (Admissions) Time/Spoke to Consulting Phy: 13:[address] Higuera - will see in clinic on Saturday Impression Primary Impression: Chest pain Qualified Codes: R07.9 - Chest pain, unspecified Disposition: 01 HOME, SELF-CARE Condition: Stable Departure-Patient Inst. Decision time for Depature: 13:12 Referrals: [facility] (PCP) Primary Care Physician DIOGO MAGANA APRN (Family) Primary Care Physician Patient Instructions: Chest Pain That Is Not Caused by the Heart (DC) Add. Discharge Instructions: Please call Dr. Higuera's office today for a follow-up appointment on Saturday. In the meantime if you develop worsening chest pain with shortness of breath, sweating, nausea, change in location of the pain/radiation please come back to the emergency department for reevaluation. Continue your daily medications as prescribed. Drink plenty of water to stay well-hydrated and get proper rest and nutrition. Copy Copies To 1: MEMO HIGUERA MD Copies To 2: BRIGIDO COREA KATHRYN M MD Jan 04, 2022 11:28
[2022-01-04] MEDS ORDERED: ASPIRIN 81 MG CHEW (CHILDREN'S ASA) PO ONE (11:30)
[2022-01-04 11:36] LABS: BASOPHILS % (AUTO) 1 % (0-10); EOSINOPHILS # (AUTO) 0.2 10^3/uL (0.0-0.3); EOSINOPHILS % (AUTO) 3 % (0-10); HEMATOCRIT 45 % (35-52); HEMOGLOBIN 14.4 g/dL (11.5-16.0); LYMPHOCYTES # (AUTO) 1.7 10^3/uL (1.0-4.0); LYMPHOCYTES % (AUTO) 20 % (12-44); MEAN CORPUSCULAR HEMOGLOBIN 29 pg (25-34); MEAN CORPUSCULAR HGB CONC 32 g/dL (32-36); MEAN CORPUSCULAR VOLUME 91 fL (80-99); MEAN PLATELET VOLUME 10.5 fL (9.0-12.2); MONOCYTES # (AUTO) 0.5 10^3/uL (0.0-1.0); MONOCYTES % (AUTO) 6 % (0-12); NEUTROPHILS % (AUTO) 70 % (42-75); PLATELET COUNT 218 10^3/uL (130-400); WHITE BLOOD COUNT 8.6 10^3/uL (4.3-11.0)
[2022-01-04 11:47] LABS: INR 0.9 (0.8-1.4); PROTHROMBIN TIME PATIENT 12.7 SEC (12.2-14.7)
[2022-01-04 11:54] LABS: ALBUMIN 4.4 GM/DL (3.2-4.5); BILIRUBIN,TOTAL 0.7 MG/DL (0.1-1.0); CALCIUM 9.8 MG/DL (8.5-10.1); CREATININE SERUM 0.72 MG/DL (0.60-1.30); POTASSIUM 4.5 MMOL/L (3.6-5.0); TOTAL PROTEIN 7.6 GM/DL (6.4-8.2)
--- NOTE | 2022-01-04 12:01 | Diagnostic Imaging Report ---
INDICATION: Chest tightness. TIME OF EXAM: 11:49 a.m. COMPARISON: Correlation is made with prior chest 11/16/2019. FINDINGS: The heart size is normal. The pulmonary vascularity is unremarkable. The lungs are clear. No infiltrate, effusion or pneumothorax is detected. IMPRESSION: No acute cardiopulmonary process is detected. Dictated by: Dictated on workstation # [id number]
[2022-01-04 13:32] VITALS: BP 154/76
== END 2022-01-04 13:32 | disposition home or self-care (01) ==
LOC: EDUNIT# 10:57 → ER 11:00
DX: R07.89 Other chest pain (principal); E66.9 Obesity, unspecified; Z68.38 Body mass index [BMI] 38.0-38.9, adult; Z20.822 Contact with and (suspected) exposure to COVID-19
CPT/HCPCS: 36415; 71045; 80053; 83735; 83874; 83880; 84484; 85025; 85610; 85730; 87636

== ENCOUNTER → 2022-03-29 | Outpatient (CLI) | payer BC, MEDICARE | LOC: CARDFS 11:22 | PROVIDERS: ATTEND Internal Medicine Cardiovascular Disease | DX: I10 Essential (primary) hypertension (principal) | CPT/HCPCS: 93306 ==

== ENCOUNTER → 2022-04-02 | Outpatient (CLI) | payer BC, MEDICARE ==
[~2022-04-02] MED LIST changes: +REGADENOSON 0.4 MG/5 ML SYR (LEXISCAN) IV ONE
[2022-04-02] MEDS: CATHETER FLUSH 10 ML SYR IVP PRN ×3 (07:54→09:08)
[2022-04-02 09:05] VITALS: BP 156/68
--- NOTE | 2022-04-02 11:00 | Cardiology Stress Test Report ---
Stress Test Report Date of Procedure/Referring: Date of Procedure: Apr 02, 2022 [facility] Admitting Physician Admitting Physician: Attending Physician: Memo Higuera MD Indications: HTN Baseline Heart Rate: 55 Baseline Blood Pressure: Blood Pressure Systolic: 156 Blood Pressure Diastolic: 68 Baseline Vitals Vital Signs Date Time Temp Pulse Resp B/P (MAP) Pulse Ox O2 Delivery O2 Flow Rate FiO2 04/02/22 09:05 58 16 156/68 (97) 98 Room Air Baseline EKG: Baseline EKG: NSR Summary After explaining the procedure to the patient, she signed a consent and then brought to the stress nuclear laboratory. Patient received 0.4 mg Lexiscan for stress test, ECG, heart rate and blood pressure were monitored continuously. Resting and stress dose of radio tracer were injected, imaging was acquired and reviewed in short axis, horizontal long axis and vertical long axis views. TID: 1.15 SSS: 13 SDS: 7 EF: 44 1. Patient tolerated Lexiscan well 2. Reversible ischemia involving the inferior wall, inferolateral wall and inferoseptum 3. Normal left ventricular size with hypokinesia of the inferior wall, ejection fraction 44% Copy Copies To 1: [facility]/MEMO MCCLURE MD Apr 02, 2022 11:00
== END ==
LOC: CARD 08:15
PROVIDERS: ATTEND Internal Medicine Cardiovascular Disease
DX: I10 Essential (primary) hypertension (principal)
CPT/HCPCS: 78452; 93017; A9502

== ENCOUNTER 2023-04-19 13:14 | Observation (INO) | payer BC, MEDICARE ==
[~2023-04-19] VITALS: Ht 158 cm; Wt 98.0 kg
[~2023-04-19 13:14] MED LIST changes: -REGADENOSON 0.4 MG/5 ML SYR (LEXISCAN) IV ONE
--- NOTE | 2023-04-19 13:44 | ED Cardiac General ---
History of Present Illness General Chief Complaint: Cardiac/General Problems Stated Complaint: AFIB | RVR Nursing Triage Note: pt to room by hipolito olivia ems. ems reports pt went to walk in clinic at [facility] today for sob and nausea. pt reports sob started last night and into today. ems reports pt was diagnosed with afib rvr at the clinic. ems reports giving pt 25mg cardizem iv at approx 1245. pt reports her sob got better after receiving the medication. pt states she did also have chest tightness last night and today, so she took one nitro at home but it was . pt reports she is not sob or nauseated on arrival. states she is comfortable, no complaints during triage. pt is a&ox4, speech normal on arrival Source: patient History of Present Illness Date Seen by Provider: Apr 19, 2023 Time Seen by Provider: 13:33 Initial Comments Patient is a 67-year-old female who presents to the emergency department by EMS chief complaint feeling short of breath and a little nauseated. Patient states her symptoms started last night, she went to the [facility] in [place] and was sent here for A-fib with RVR. Patient has no history of atrial fibrillation, EMS reports heart rates as high as 156. She was given 25 mg of Cardizem IV push in route from [place]. She has a heart rate of 110-115 on arrival. Normal blood pressures - 115 systolic. She did have a little chest tightness earlier today in the clinic and took 1 nitro, she states it did not do anything but her tightness has subsequently gone away. Her nitro was . She has a history of coronary artery disease with cardiac stents and is followed by Dr. Higuera. No exertional chest pain in the last 24 hours just very short of breath. She does not wear oxygen at home. 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 ASA po HOT MILL ROLLER: No Associated Systoms: Malaise, Shortness of Air Allergies and Home Medications Allergies Coded Allergies: No Known Drug Allergies (Unverified , 11/16/19) Patient Home Medication List Home Medication List Reviewed: Yes Ascorbic Acid/Ascorbate Sodium (Vitamin C 500 mg Tablet Chew) 500 Mg Tab.chew, 500 MG PO DAILY, (Reported) Entered as Reported by: MERY GUERRA on 04/19/231808 Last Action: Reviewed Aspirin (Aspirin) 325 Mg Tablet, 325 MG PO DAILY, (Reported) Entered as Reported by: MERY GUERRA on 04/19/231808 Last Action: Reviewed Atorvastatin Calcium (Atorvastatin Calcium) 20 Mg Tablet, 20 MG PO HS, (Reported) Entered as Reported by: DONTE HUGHES on 11/17/191032 Last Action: Reviewed Isosorbide Mononitrate (Isosorbide Mononitrate ER) 30 Mg Tab.er.24h, 30 MG PO DAILY, (Reported) Entered as Reported by: MERY GUERRA on 04/19/231808 Last Action: Reviewed Lisinopril (Lisinopril) 10 Mg Tablet, 10 MG PO DAILY Prescribed by: ELBA ZELAYA on 11/19/191219 Last Action: Reviewed Multivitamin/Iron/Folic Acid (Centrum Women Tablet) 1 Each Tablet, 1 EACH PO DAILY, (Reported) Entered as Reported by: DONTE HUGHES on 11/17/191032 Last Action: Reviewed [place]-3/Dha/Epa/Fish Oil (Fish Oil 1,000 mg Softgel) 1,000 Mg (120 Mg-180 Mg) Capsule, 1,000 MG PO DAILY, (Reported) Entered as Reported by: MERY GUERRA on 04/19/231808 Last Action: Reviewed Sertraline HCl (Sertraline HCl) 50 Mg Tablet, 50 MG PO DAILY, (Reported) Entered as Reported by: DONTE HUGHES on 11/17/191032 Last Action: Reviewed Discontinued Medications Aspirin (Aspirin EC) 81 Mg Tablet.dr, 81 MG PO DAILY, (Reported) Discontinued Reason: No Longer Taking Entered as Reported by: DONTE HUGHES on 11/17/191032 Last Action: Discontinued Metoprolol Tartrate (Metoprolol Tartrate) 25 Mg Tablet, 12.5 MG PO BID Discontinued Reason: No Longer Taking Prescribed by: ELBA ZELAYA on 11/19/191219 Last Action: Discontinued [place]-3/Dha/Epa/Fish Oil ([place] 3 500 Softgel) 1 Each Capsule, 1 EACH PO BID, (Reported) Discontinued Reason: No Longer Taking Entered as Reported by: DONTE HUGHES on 11/17/191032 Last Action: Discontinued Review of Systems Review of Systems Constitutional: see HPI EENTM: No Symptoms Reported Respiratory: Shortness of Air, SOA With Exertion Cardiovascular: Chest Pain (brief episode of tightness) Gastrointestinal: No Symptoms Reported Musculoskeletal: no symptoms reported Skin: no symptoms reported Psychiatric/Neurological: No Symptoms Reported Past Egsjduu-Puscrf-Akjigq Hx Seasonal Allergies Seasonal Allergies: No Past Medical History Surgeries: Yes (colon resection, varicose vein stripping) Respiratory: No Cardiac: Yes Coronary Artery Disease, High Cholesterol, Hypertension, Palpitations Neurological: No Genitourinary: No Gastrointestinal: No Musculoskeletal: No Endocrine: No HEENT: No Cancer: Yes Colon Did You Recieve Any Treatments: Yes What Type of Treatment Did You: Surgical Intervention Psychosocial: No Integumentary: No Blood Disorders: No Family Medical History No Pertinent Family Hx Physical Exam Vital Signs Vital Signs - First Documented 04/19/23 13:15 Temp 36.1 Pulse 102 Resp 20 B/P (MAP) 142/104 (117) Pulse Ox 95 Capillary Refill : Height, Weight, BMI Height: '" Weight: lbs. oz. kg; 39.00 BMI Method: General Appearance: No Apparent Distress, WD/WN, Obese HEENT: PERRL/EOMI Neck: Normal Inspection Respiratory: Lungs Clear, Normal Breath Sounds, No Accessory Muscle Use, No Respiratory Distress Cardiovascular: Normal Peripheral Pulses, Irregularly Irregular, Tachycardia (110) Gastrointestinal: Non Tender, Soft Extremity: Normal Inspection, No Pedal Edema Neurologic/Psychiatric: Alert, Oriented x3, No Motor/Sensory Deficits, Normal Mood/Affect Skin: Normal Color, Warm/Dry Progress/Results/Core Measures Results/Orders Lab Results Laboratory Tests Test 04/19/23 13:23 04/19/23 13:52 Range/Units White Blood Count 8.9 4.3-11.0 10^3/uL Red Blood Count 4.80 3.80-5.11 10^6/uL Hemoglobin 14.1 11.5-16.0 g/dL Hematocrit 45 35-52 % Mean Corpuscular Volume 94 80-99 fL Mean Corpuscular Hemoglobin 29 25-34 pg Mean Corpuscular Hemoglobin Concent 31 L 32-36 g/dL Red Cell Distribution Width 13.5 10.0-14.5 % Platelet Count 138 130-400 10^3/uL Mean Platelet Volume 12.3 H 9.0-12.2 fL Immature Granulocyte % (Auto) 0 % Neutrophils (%) (Auto) 75 42-75 % Lymphocytes (%) (Auto) 15 12-44 % Monocytes (%) (Auto) 8 0-12 % Eosinophils (%) (Auto) 1 0-10 % Basophils (%) (Auto) 0 0-10 % Neutrophils # (Auto) 6.7 1.8-7.8 10^3/uL Lymphocytes # (Auto) 1.4 1.0-4.0 10^3/uL Monocytes # (Auto) 0.7 0.0-1.0 10^3/uL Eosinophils # (Auto) 0.1 0.0-0.3 10^3/uL Basophils # (Auto) 0.0 0.0-0.1 10^3/uL Immature Granulocyte # (Auto) 0.0 0.0-0.1 10^3/uL Percent Immature Platelet Fraction 10.5 H 0.0-7.6 % Smear Scan YES Prothrombin Time 14.3 12.2-14.7 SEC INR Comment 1.1 0.8-1.4 Activated Partial Thromboplast Time 31 24-35 SEC Sodium Level 142 135-145 MMOL/L Potassium Level 3.8 3.6-5.0 MMOL/L Chloride Level 107 98-107 MMOL/L Carbon Dioxide Level 28 21-32 MMOL/L Anion Gap 7 5-14 MMOL/L Blood Urea Nitrogen 14 7-18 MG/DL Creatinine 0.64 0.60-1.30 MG/DL Estimat Glomerular Filtration Rate 96 BUN/Creatinine Ratio 22 Glucose Level 114 H 70-105 MG/DL Calcium Level 8.7 8.5-10.1 MG/DL Corrected Calcium 8.7 8.5-10.1 MG/DL Magnesium Level 2.1 1.6-2.4 MG/DL Total Bilirubin 1.1 H 0.1-1.0 MG/DL Aspartate Amino Transf (AST/SGOT) 85 H 5-34 U/L Alanine Aminotransferase (ALT/SGPT) 106 H 0-55 U/L Alkaline Phosphatase 82 40-136 U/L Troponin I < 0.028 <0.028 NG/ML B-Type Natriuretic Peptide 202.3 H <100.0 PG/ML Total Protein 6.6 6.4-8.2 GM/DL Albumin 4.0 3.2-4.5 GM/DL Thyroid Stimulating Hormone (TSH) 1.20 0.35-4.94 UIU/ML My Orders Orders - DILEEP MAYA MD Ekg Tracing (04/19/23 13:27) Cbc And Automated Diff (04/19/23 13:43) Magnesium (04/19/23 13:43) Chest 1 View, Ap/Pa Only (04/19/23 13:43) Comprehensive Metabolic Panel (04/19/23 13:43) Protime With Inr (04/19/23 13:43) Partial Thromboplastin Time (04/19/23 13:43) O2 (04/19/23 13:43) Monitor-Rhythm Ecg Trace Only (04/19/23 13:43) Lipid Panel (04/20/23 06:00) Ed Iv/Invasive Line Start (04/19/23 13:43) Troponin I [place] (04/19/23 13:43) Apixaban Tablet (Apixaban Tablet) (04/19/23 14:30) Ns Iv 500 Ml (Ns Iv 500 Ml) (04/19/23 14:30) Diltiazem Injection (Diltiazem Injection (04/19/23 15:00) Diltiazem Drip Pre-Mix (Diltiazem Drip P (04/19/23 15:00) Bnp [place] (04/19/23 14:46) Digoxin Tablet (Digoxin Tablet) (04/19/23 14:54) Ed Admission (Communication) (04/19/23 15:13) Vital Signs/I&O 04/19/23 04/19/23 04/19/23 04/19/23 13:15 15:11 15:11 15:32 Temp 36.1 Pulse 102 120 120 87 Resp 20 B/P (MAP) 142/104 (117) 109/91 109/91 111/74 Pulse Ox 95 96 04/19/23 23:59 Intake Total 1000 ml Balance 1000 ml Blood Pressure Mean: 117 Admisison Planning May Need Admission (Planning): 14:44 Progress Progress Note : Time: 14:44 Progress Note Patient seen and evaluated by me. Evaluation today includes history and physical exam with cardiac work-up to include CBC, Chem-12, magnesium, serum troponin, coag profile, BNP, EKG and single view chest x-ray. Pertinent physical exam findings include well-developed well-nourished moderately obese female in no significant distress. She has no respiratory compromise, speaks in full sentences. No inspiratory or expiratory wheezes. Heart is irregularly irregular and tachycardic at about 112. Her blood pressure is good. She has no lower extremity edema. No focal neurologic deficits. Differential diagnosis includes ACS, new onset A-fib, congestive heart failure, dehydration Labs, EKG and chest x-ray independently reviewed and interpreted by me. Her CBC is normal, she is not anemic. Her chemistry is pertinent for only mildly elevated liver functions with a 1.1 bilirubin, 85 AST, ALT of 106. Her troponin is undetectable. Her magnesium is within normal limits. BNP is minimally elevated at 202. Her coags are normal. EKG is consistent with atrial fibrillation with rapid ventricular response. Her chest x-ray shows no focal infiltrate. Radiology read comments on mild increased pulmonary vascular congestion. Patient is treated with an additional 10 mg bolus of IV Cardizem once her rate is noted to start going up into the 120s, 130s. I did start a drip of 5 mg and we will follow Cardizem drip protocol. I spoke with Dr. Roopa willett for cardiology who also recommends 0.5 of oral digoxin. No concerning findings at this time for acute coronary syndrome/NSTEMI. I discussed findings and plan of care with the patient and family who are at the bedside. They are agreeable to admission for further monitoring and management. Case is also discussed with Dr. Yousuf willett for the [facility] service. She will do queued orders. Patient will be admitted to the ICU for cardiac monitoring and drip management. Initial ECG Impression Date: Apr 19, 2023 Initial ECG Impression Time: 13:34 Initial ECG Rate: 109 Initial ECG Rhythm: A Fib/Flutter Initial ECG Impression: Atrial Fibrillation w/RVR Diagnostic Imaging Diagonstic Imaging: Xray Plain Films/CT/US/NM/MRI: chest Comments [facility]. [place], [place] NAME: ALONA MAURER [facility] REC#: [id number] PT STATUS: REG ER : 1955 PHYSICIAN: DILEEP MAYA MD ADMIT DATE: 11/24/23/ER Signed Date of Exam:04/19/23 CHEST 1 VIEW, AP/PA ONLY CHEST 1 VIEW, AP/PA ONLY Indication: Chest pain. Comparison: 01/04/2022 Findings: Possible small bilateral pleural effusions. Central vascular indistinctness is noted. No pneumothorax. Mild enlargement of the cardiac silhouette. Impression: 1. Potential mild pulmonary edema and small pleural effusions. Dictated by: Dictated on workstation # [id number] Dict: 04/19/23 1356 Trans: 04/19/23 1400 CVB [id number] Interpreted by: JAIDA PELAYO MD Electronically signed by: JAIDA PELAYO MD 04/19/23 1400 Departure Communication (Admissions) Time/Spoke to Admitting Phy: 14:[address] To (on for [facility] practice) will do que'd orders Time/Spoke to Consulting Phy: 14:[address] Blas - Cardiology; give a dose of 0.5mg digoxin with cardizem and her will see Impression Primary Impression: Atrial fibrillation with rapid ventricular response Disposition: ADMITTED INPATIENT Condition: Critical Admissions Decision to Admit Reason: Admit from ER (General) Decision to Admit/Date: Apr 19, 2023 Time/Decision to Admit Time: 14:49 Departure-Patient Inst. Referrals: DIOGO MAGANA APRN (PCP) Primary Care Physician [facility]/[place] (Family) Primary Care Physician Copy Copies To 1: BRIGIDO COREA DO Copies To 2: MEMO HIGUERA MD, KATHRYN M MD Apr 19, 2023 13:44
[2023-04-19 13:51] LABS: BASOPHILS % (AUTO) 0 % (0-10)
[2023-04-19 13:53] LABS: EOSINOPHILS # (AUTO) 0.1 10^3/uL (0.0-0.3); EOSINOPHILS % (AUTO) 1 % (0-10); HEMATOCRIT 45 % (35-52); HEMOGLOBIN 14.1 g/dL (11.5-16.0); LYMPHOCYTES # (AUTO) 1.4 10^3/uL (1.0-4.0); LYMPHOCYTES % (AUTO) 15 % (12-44); MEAN CORPUSCULAR HEMOGLOBIN 29 pg (25-34); MEAN CORPUSCULAR HGB CONC 31 g/dL (32-36); MEAN CORPUSCULAR VOLUME 94 fL (80-99); MEAN PLATELET VOLUME 12.3 fL (9.0-12.2); MONOCYTES # (AUTO) 0.7 10^3/uL (0.0-1.0); MONOCYTES % (AUTO) 8 % (0-12); NEUTROPHILS # (AUTO) 6.7 10^3/uL (1.8-7.8); NEUTROPHILS % (AUTO) 75 % (42-75); PLATELET COUNT 138 10^3/uL (130-400); WHITE BLOOD COUNT 8.9 10^3/uL (4.3-11.0)
[2023-04-19 13:55] LABS: SMEAR SCAN COMMENT YES
--- NOTE | 2023-04-19 13:58 | Diagnostic Imaging Report ---
CHEST 1 VIEW, AP/PA ONLY Indication: Chest pain. Comparison: 01/04/2022 Findings: Possible small bilateral pleural effusions. Central vascular indistinctness is noted. No pneumothorax. Mild enlargement of the cardiac silhouette. Impression: 1. Potential mild pulmonary edema and small pleural effusions. Dictated by: Dictated on workstation # [id number]
[2023-04-19 14:08] LABS: CHLORIDE 107 MMOL/L (98-107); POTASSIUM 3.8 MMOL/L (3.6-5.0); SODIUM 142 MMOL/L (135-145)
[2023-04-19 14:09] LABS: CALCIUM 8.7 MG/DL (8.5-10.1)
[2023-04-19 14:10] LABS: GLUCOSE 114 MG/DL (70-105); INR 1.1 (0.8-1.4); PROTHROMBIN TIME PATIENT 14.3 SEC (12.2-14.7); TOTAL PROTEIN 6.6 GM/DL (6.4-8.2)
[2023-04-19 14:11] LABS: CARBON DIOXIDE 28 MMOL/L (21-32)
[2023-04-19 14:12] LABS: BILIRUBIN,TOTAL 1.1 MG/DL (0.1-1.0)
[2023-04-19 14:14] LABS: ALKALINE PHOSPHATASE 82 U/L (40-136); CREATININE SERUM 0.64 MG/DL (0.60-1.30); GFR ESTIMATED 96
[2023-04-19 14:15] LABS: BUN/CREATININE RATIO 22
[2023-04-19 14:17] LABS: ALANINE AMINOTRANSFERASE 106 U/L (0-55); MAGNESIUM 2.1 MG/DL (1.6-2.4)
[2023-04-19] MEDS ORDERED: APIXABAN 5 MG TABLET PO ONE (14:30)
[2023-04-19] MEDS ORDERED: NS IV 500 ML 500 ML IV SCH (14:30)
[2023-04-19] MEDS ORDERED: DIGOXIN 0.25 MG TABLET PO STA (14:54)
[2023-04-19] MEDS ORDERED: dilTIAZem INJ 25 MG/5 ML VIAL IVP ONE (15:00)
[2023-04-19] MEDS: dilTIAZem DRIP PRE-MIX 125 ML IV SCH (15:11)
[2023-04-19] MEDS ORDERED: oxyCODONE IMMEDIATE RELEASE 5 MG TABLET PO PRN (16:00)
[2023-04-19] MEDS ORDERED: LORazepam 0.5 MG TABLET PO PRN (16:00)
[2023-04-19] MEDS ORDERED: ANTACID SUSPENSION 30 ML UDC PO PRN (16:00)
[2023-04-19] MEDS ORDERED: LACTULOSE SYRUP 10GM/15ML 30ML UDC PO PRN (16:00)
[2023-04-19] MEDS ORDERED: ONDANSETRON INJECTION 4 MG/2 ML (SDV) IV PRN (16:00)
[2023-04-19] MEDS ORDERED: MELATONIN 3 MG TABLET PO PRN (16:00)
[2023-04-19] MEDS ORDERED: NS IV 500 ML 500 ML IV PRN (16:00)
[2023-04-19] MEDS ORDERED: diphenhydrAMINE INJ 50 MG/ML VIAL IVP PRN (16:00)
[2023-04-19] MEDS ORDERED: diphenhydrAMINE 25 MG TABLET PO PRN (16:00)
[2023-04-19] MEDS ORDERED: HYDROmorphone INJECTION 2 MG/ML VIAL IV PRN (16:00)
[2023-04-19] MEDS ORDERED: MILK OF MAGNESIA 400 MG/5 ML 30 ML UDC PO PRN (16:00)
[2023-04-19] MEDS ORDERED: BISACODYL 10 MG SUPPOSITORY PR PRN (16:00)
[2023-04-19] MEDS ORDERED: CALCIUM CARBONATE 500 MG CHEW TABLET PO PRN (16:00)
[2023-04-19] MEDS ORDERED: ONDANSETRON 4 MG ORAL DISSOLVE TABLET PO PRN (16:00)
[2023-04-19 16:37] VITALS: BP 142/104
--- NOTE | 2023-04-19 16:42 | Tele-ICU Progress Note ---
Subjective Date Seen by a Provider: Apr 19, 2023 Time Seen by a Provider: 16:41 Subjective/Events-last exam (Tele-ICU Physician , consultation as per request of PCP Service provided via interactive audio and video telecommunications E-CARE system to a patient admitted to ICU bed in [facility]. Available chart/ vitals / labs / Images reviewed H&P is from ER notes Patient's information available about PMH, Shx, Fhx allergy reviewed inEMR. ROS as per chart and RN report Now in ICU, hemodynamically stable Video assessment done using teleICU camera, rest of exam as per RN Discussed with RN. Hospital course: 04/19- A-fib with RVR A/P A-fib with RVR - new dx ?, ordered TSH - cardisem gtt -AC with eliquis - cardss consulted CAD ECHO 2021 - EF 60^% , grd 3 dst dsfnc -history of stenting over 10 years ago - cath 2019- Total occlusion of the distal right coronary artery stent with good occlusion in the midright coronary artery receiving collaterals from the left, attempt to cross the occlusion with multiple wires and balloon inflation has failed., Moderate stenosis at the mid LAD JUANITO - by PSG 2019 . AHI 13 , desats to 70s - not using CPAP Elv LFT - suspectsed venous congestion Lines : periph , (Central Line Necessity Reviewed) Tinoco: yoshi OG: Nutrition: Analgesia: Anxiety/ delirium VTE Prophylaxis: eliquis Stress Ulcer Prophylaxis: na Plans in collaboration with bedside consultants and IM MDs. Discussed with RN to reach out if any questions or concerns A total of _20 minutes of critical care time was devoted to this patient today, required to treat and/or prevent further deterioration of critical care condition ( as above ) I am remotely monitoring this patient from another state. I am unable to do the bedside exam, and history/physical and pertinent information is taken from other notes in the computer and bedside staff. . Sepsis Event Evaluation Height, Weight, BMI Height: '" Weight: lbs. oz. kg; 38.85 BMI Method: Exam Exam Patient acknowledged, consented, and participated in this virtual visit which was conducted using real time audio/video Vital Signs Date Time Temp Pulse Resp B/P (MAP) Pulse Ox O2 Delivery O2 Flow Rate FiO2 04/19/23 16:17 80 04/19/23 16:17 95 Room Air 11/24/23 15:11 120 109/91 04/19/23 15:11 120 109/91 04/19/23 13:15 36.1 102 20 142/104 (117) 95 Height & Weight Height: '" Weight: lbs. oz. kg; 38.85 BMI Method: General Appearance: No Apparent Distress, WD/WN, Obese HEENT: PERRL/EOMI Neck: Normal Inspection Respiratory: Lungs Clear, Normal Breath Sounds, No Accessory Muscle Use, No Respiratory Distress Cardiovascular: Normal Peripheral Pulses, Irregularly Irregular, Tachycardia (110) Extremity: Normal Inspection, No Pedal Edema Neurologic/Psychiatric: Alert, Oriented x3, No Motor/Sensory Deficits, Normal Mood/Affect Skin: Normal Color, Warm/Dry Results Lab Laboratory Tests 04/19/23 13:23 04/19/23 13:52 Assessment/Plan Assessment/Plan 1 BRENDAN HUNTER MD Apr 19, 2023 16:42
[2023-04-19] MEDS ORDERED: RT-ALBUTEROL SULF 2.5 MG/3 ML PRE-MIX VIAL INH PRN (17:00)
--- NOTE | 2023-04-19 18:01 | Consultation-Cardiology ---
HPI-Cardiology Cardiology Consultation: Date of Consultation 04/19/23 Date of Admission Attending Physician Azra Patterson Aprn Admitting Physician Admitting Physician: Maryanne To DO Attending Physician: Maryanne To DO Consulting Physician DEBBIE BOONE MD HPI: Time Seen by a Provider: 17:54 Chief Complaint: palpitations , SOB 67 year old female with no significant reported past cardiac history presented to the ED with sudden onset palpitations and SOB at rest was found with new atrial fibrillation with rapid ventricular response. Was started on AC orally and given Cardizem and single dose Digoxin with adequate rate control. Admited for further monitoring/management Review of Systems-Cardiology Review of Systems Eyes: No As described under HPI, No no symptoms reported, No blindness, No blurred vision, No contact lenses, No drainage, No decreased acuity, No foreign body sensation, No glasses, No inflammation, No pain, No photophobia, No previous injury, No shadows, No tunnel vision, No other, No vision change Ears/Nose/Throat: No As described under HPI, No no symptoms reported, No chronic hearing loss, No epistaxis, No ear discharge, No ear pain, No loose teeth, No mouth pain, No mouth swelling, No nasal drainage, No nose pain, No recent hearing loss, No throat pain, No throat swelling, No ulcerations, No other Respiratory: shortness of breath, SOB with excertion Cardiovascular: irregular heart rate, lightheadedness, palpitations Gastrointestinal: No no symptoms reported, No As described under HPI, No abdomen distended, No abdominal pain, No blood streaked bowels, No constipation, No diarrhea, No difficulty swallowing, No nausea, No poor appetite, No poor fluid intake, No rectal bleeding, No vomiting, No other, No nausea/vomiting/diarrhea, No stool coloration changes Musculoskeletal: No no symptoms reported, No As describe under HPI, No back pain, No gout, No joint pain, No joint swelling, No muscle pain, No muscle stiffness, No neck pain, No other Skin: No no symptoms reported, No As described under HPI, No change in color, No change in hair/nails, No dryness, No lesions, No lumps, No rash, No other, No skin related problems, No ulcerations, No rash on exposed areas, No ulcerations on exposed areas Psychiatric/Neurological: No no symptoms reported, No As described under HPI, No anxiety, No depression, No emotional problems, No headache, No numbness, No pre-existing deficit, No seizure, No tingling, No tremors, No weakness, No other, No focal weakness, No syncope NJJ-Xgymkc-Aygmbl Hx Patient Social History 2nd Hand Smoke Exposure: No Alcohol Use?: No Pt feels they are or have been: No Past Medical History PMH As described under Assessment. Allergies and Home Medications Allergies Coded Allergies: No Known Drug Allergies (Unverified , 11/16/19) Patient Home Medication List Home Medication List Reviewed: Yes Aspirin (Aspirin EC) 81 Mg Tablet.dr, 81 MG PO DAILY, (Reported) Entered as Reported by: DONTE HUGHES on 11/17/19 1033 Atorvastatin Calcium (Atorvastatin Calcium) 20 Mg Tablet, 20 MG PO HS, (Reported) Entered as Reported by: DONTE HUGHES on 11/17/19 1033 Lisinopril (Lisinopril) 10 Mg Tablet, 10 MG PO DAILY Prescribed by: ELBA ZELAYA on 11/19/19 1220 Metoprolol Tartrate (Metoprolol Tartrate) 25 Mg Tablet, 12.5 MG PO BID Prescribed by: ELBA ZELAYA on 11/19/19 1220 Multivitamin/Iron/Folic Acid (Centrum Women Tablet) 1 Each Tablet, 1 EACH PO DAILY, (Reported) Entered as Reported by: DONTE HUGHES on 11/17/19 1033 [place]-3/Dha/Epa/Fish Oil ([place] 3 500 Softgel) 1 Each Capsule, 1 EACH PO BID, (Reported) Entered as Reported by: DONTE HUGHES on 11/17/19 1033 Sertraline HCl (Sertraline HCl) 50 Mg Tablet, 50 MG PO DAILY, (Reported) Entered as Reported by: DONTE HUGHES on 11/17/19 1033 Exam Vital Signs Vital Signs Date Time Temp Pulse Resp B/P (MAP) Pulse Ox O2 Delivery O2 Flow Rate FiO2 04/19/23 16:52 Room Air 0.00 04/19/23 16:37 36.1 102 95 21 04/19/23 15:32 111/74 04/19/23 13:15 20 Physical Exam normocefalic, atraumatic neck supple chest with good air entry no significanr crackles/rales heart irregular no sig murmurs, rubs , gallops abdomen soft tender distal pulses present but decreased Labs Laboratory Tests Test 04/19/23 13:23 04/19/23 13:52 Range/Units White Blood Count 8.9 4.3-11.0 10^3/uL Red Blood Count 4.80 3.80-5.11 10^6/uL Hemoglobin 14.1 11.5-16.0 g/dL Hematocrit 45 35-52 % Mean Corpuscular Volume 94 80-99 fL Mean Corpuscular Hemoglobin 29 25-34 pg Mean Corpuscular Hemoglobin Concent 31 L 32-36 g/dL Red Cell Distribution Width 13.5 10.0-14.5 % Platelet Count 138 130-400 10^3/uL Mean Platelet Volume 12.3 H 9.0-12.2 fL Immature Granulocyte % (Auto) 0 % Neutrophils (%) (Auto) 75 42-75 % Lymphocytes (%) (Auto) 15 12-44 % Monocytes (%) (Auto) 8 0-12 % Eosinophils (%) (Auto) 1 0-10 % Basophils (%) (Auto) 0 0-10 % Neutrophils # (Auto) 6.7 1.8-7.8 10^3/uL Lymphocytes # (Auto) 1.4 1.0-4.0 10^3/uL Monocytes # (Auto) 0.7 0.0-1.0 10^3/uL Eosinophils # (Auto) 0.1 0.0-0.3 10^3/uL Basophils # (Auto) 0.0 0.0-0.1 10^3/uL Immature Granulocyte # (Auto) 0.0 0.0-0.1 10^3/uL Percent Immature Platelet Fraction 10.5 H 0.0-7.6 % Smear Scan YES Prothrombin Time 14.3 12.2-14.7 SEC INR Comment 1.1 0.8-1.4 Activated Partial Thromboplast Time 31 24-35 SEC Sodium Level 142 135-145 MMOL/L Potassium Level 3.8 3.6-5.0 MMOL/L Chloride Level 107 98-107 MMOL/L Carbon Dioxide Level 28 21-32 MMOL/L Anion Gap 7 5-14 MMOL/L Blood Urea Nitrogen 14 7-18 MG/DL Creatinine 0.64 0.60-1.30 MG/DL Estimat Glomerular Filtration Rate 96 BUN/Creatinine Ratio 22 Glucose Level 114 H 70-105 MG/DL Calcium Level 8.7 8.5-10.1 MG/DL Corrected Calcium 8.7 8.5-10.1 MG/DL Magnesium Level 2.1 1.6-2.4 MG/DL Total Bilirubin 1.1 H 0.1-1.0 MG/DL Aspartate Amino Transf (AST/SGOT) 85 H 5-34 U/L Alanine Aminotransferase (ALT/SGPT) 106 H 0-55 U/L Alkaline Phosphatase 82 40-136 U/L Troponin I < 0.028 <0.028 NG/ML B-Type Natriuretic Peptide 202.3 H <100.0 PG/ML Total Protein 6.6 6.4-8.2 GM/DL Albumin 4.0 3.2-4.5 GM/DL Thyroid Stimulating Hormone (TSH) 1.20 0.35-4.94 UIU/ML Radiology reviewed ECG Impression ECG Initial ECG Impression Date: Apr 19, 2023 Initial ECG Impression Time: 17:58 Initial ECG Rhythm: A Fib/Flutter Initial ECG Impression: Atrial Fibrillation w/RVR Diagnosis/Problems Diagnosis/Problems (1) Coronary artery disease Status: Chronic (2) Atrial fibrillation with rapid ventricular response Status: Acute (3) Hypertension Status: Chronic (4) Hyperlipidemia Status: Chronic A/P-Cardiology Assessment/Admission Diagnosis AF with RVR HFpEF Plan: Will continue with cardizem for rate control and can give additional digoxin 0.25 IV once if rate goes above 130-140s overnight At bedside now HR 80-90s pt comfortable, normotensive AC started with Eliquis . Continue both eliquis and Aspirin ( home med ) Can increase oral metoprolol from home reported 12.5 mg BID to 25 mg BID Continue remaining home meds Obtain Lipid panel, A1C, thyroid function panel Sleep study advised as outpatient ECHO either inpatient over weekend or if unable as outpatient If stable will plan for DC in next 24 - 36 hrs pending progression Case discussed at length with family and nursing staff Plan As above DEBBIE BOONE MD Apr 19, 2023 18:01
[2023-04-19] MEDS ORDERED: ISOS30TA82 PO (18:09)
[2023-04-19] MEDS ORDERED: ASPI-808 PO (18:09)
[2023-04-19] MEDS ORDERED: OMEG100032 PO (18:09)
[2023-04-19] MEDS ORDERED: ASCO500T16 PO (18:09)
[2023-04-19] MEDS: APIXABAN 5 MG TABLET PO SCH (20:09)
[2023-04-19] MEDS: ACETAMINOPHEN 325 MG TABLET PO PRN (20:10)
[2023-04-19] MEDS: DOCUSATE SODIUM 100 MG CAPSULE PO SCH (20:11)
[2023-04-19] MEDS: SENNOSIDES 8.6 MG TABLET PO SCH (20:11)
[2023-04-19] MEDS: RT-ALBUTEROL SULF 2.5 MG/3 ML PRE-MIX VIAL INH SCH (21:53)
[2023-04-20] MEDS: RT-ALBUTEROL SULF 2.5 MG/3 ML PRE-MIX VIAL INH SCH ×4 (02:52→21:11)
[2023-04-20 04:15] LABS: BASOPHILS % (AUTO) 1 % (0-10); EOSINOPHILS # (AUTO) 0.2 10^3/uL (0.0-0.3); EOSINOPHILS % (AUTO) 3 % (0-10); HEMATOCRIT 40 % (35-52); HEMOGLOBIN 12.6 g/dL (11.5-16.0); LYMPHOCYTES # (AUTO) 1.5 10^3/uL (1.0-4.0); LYMPHOCYTES % (AUTO) 20 % (12-44); MEAN CORPUSCULAR HEMOGLOBIN 29 pg (25-34); MEAN CORPUSCULAR HGB CONC 32 g/dL (32-36); MEAN CORPUSCULAR VOLUME 92 fL (80-99); MONOCYTES # (AUTO) 0.6 10^3/uL (0.0-1.0); MONOCYTES % (AUTO) 7 % (0-12); NEUTROPHILS # (AUTO) 5.4 10^3/uL (1.8-7.8); NEUTROPHILS % (AUTO) 70 % (42-75); PLATELET COUNT 196 10^3/uL (130-400); WHITE BLOOD COUNT 7.7 10^3/uL (4.3-11.0)
[2023-04-20 04:37] LABS: ALBUMIN 3.7 GM/DL (3.2-4.5); BILIRUBIN,TOTAL 0.9 MG/DL (0.1-1.0); CALCIUM 8.8 MG/DL (8.5-10.1); CREATININE SERUM 0.61 MG/DL (0.60-1.30); PHOSPHORUS 3.7 MG/DL (2.3-4.7); POTASSIUM 3.9 MMOL/L (3.6-5.0); TOTAL PROTEIN 5.9 GM/DL (6.4-8.2)
[2023-04-20] MEDS: dilTIAZem DRIP PRE-MIX 125 ML IV SCH ×2 (04:38→23:25)
[2023-04-20] MEDS: POTASSIUM CL 10MEQ/50ML IVPB 50 ML IV SCH (04:46)
[2023-04-20] MEDS: MAGNESIUM 1 GM/100 ML IVPB 100 ML IV SCH (04:46)
[2023-04-20] MEDS: POTASSIUM CHLORIDE 20 MEQ TABLET PO SCH (04:46)
--- NOTE | 2023-04-20 06:29 | Short Stay Summary ---
History of Present Illness History of Present Illness Reason for visit/HPI Chief complaint: New onset A-fib with RVR HPI: This is a 67-year-old female with a history of CAD and stent in the past who presented to the ER with complaints of palpitations found to have atrial fibrillation with rapid ventricular response new onset. Patient was placed on Eliquis for stroke prophylaxis. Diltiazem drip initiated and cardiology consulted. Family at the bedside. Patient denies any pain. We did talk about the possibility of sleep apnea as the source and she will get a sleep study as an outpatient. Date of Admission Apr 19, 2023 at 15:33 Date of Discharge NA Time Seen by Provider: 11:00 Attending Physician Azra Patterson Aprn Admitting Physician Admitting Physician: Maryanne Goel DO Attending Physician: Maryanne Goel DO Consult Allergies and Home Medications Allergies Coded Allergies: No Known Drug Allergies (Unverified , 11/16/19) Patient Home Medication List Home Medication List Reviewed: Yes Ascorbic Acid/Ascorbate Sodium (Vitamin C 500 mg Tablet Chew) 500 Mg Tab.chew, 500 MG PO DAILY, (Reported) Entered as Reported by: MERY GUERRA on 04/19/231808 Last Action: Reviewed Aspirin (Aspirin) 325 Mg Tablet, 325 MG PO DAILY, (Reported) Entered as Reported by: MERY GUERRA on 04/19/231808 Last Action: Reviewed Atorvastatin Calcium (Atorvastatin Calcium) 20 Mg Tablet, 20 MG PO HS, (Reported) Entered as Reported by: DONTE HUGHES on 11/17/19 103 Last Action: Reviewed Isosorbide Mononitrate (Isosorbide Mononitrate ER) 30 Mg Tab.er.24h, 30 MG PO DAILY, (Reported) Entered as Reported by: MERY GUERRA on 04/19/231808 Last Action: Reviewed Lisinopril (Lisinopril) 10 Mg Tablet, 10 MG PO DAILY Prescribed by: ELBA ZELAYA on 11/19/19 1220 Last Action: Reviewed Multivitamin/Iron/Folic Acid (Centrum Women Tablet) 1 Each Tablet, 1 EACH PO DAILY, (Reported) Entered as Reported by: DONTE HUGHES on 11/17/19 103 Last Action: Reviewed Ray-3/Dha/Epa/Fish Oil (Fish Oil 1,000 mg Softgel) 1,000 Mg (120 Mg-180 Mg) Capsule, 1,000 MG PO DAILY, (Reported) Entered as Reported by: MERY GUERRA on 04/19/23 180 Last Action: Reviewed Sertraline HCl (Sertraline HCl) 50 Mg Tablet, 50 MG PO DAILY, (Reported) Entered as Reported by: DONTE HUGHES on 11/17/19 1033 Last Action: Reviewed Discontinued Medications Aspirin (Aspirin EC) 81 Mg Tablet.dr, 81 MG PO DAILY, (Reported) Discontinued Reason: No Longer Taking Entered as Reported by: DONTE HUGHES on 11/17/19 1033 Last Action: Discontinued Metoprolol Tartrate (Metoprolol Tartrate) 25 Mg Tablet, 12.5 MG PO BID Discontinued Reason: No Longer Taking Prescribed by: ELBA ZELAYA on 11/19/19 1220 Last Action: Discontinued Ray-3/Dha/Epa/Fish Oil (Ray 3 500 Softgel) 1 Each Capsule, 1 EACH PO BID, (Reported) Discontinued Reason: No Longer Taking Entered as Reported by: DONTE HUGHES on 11/17/19 103 Last Action: Discontinued Past Ktmomwa-Sgxdda-Nbpusk Hx Patient Social History Marrital Status: Employed/Student: employed ([employer] in [place]) Smoking Status: Never a Smoker 2nd Hand Smoke Exposure: No Recent Hopitalizations: No Alcohol Use?: No Pt feels they are or have been: No Seasonal Allergies Seasonal Allergies: No Surgeries Yes (colon resection, varicose vein stripping) Coronary Stent Respiratory No Cardiovascular Yes Coronary Artery Disease, High Cholesterol, Hypertension, Palpitations Neurological No Genitourinary No Gastrointestinal No Musculoskeletal No Endocrine History of Endocrine Disorders: No HEENT History of HEENT Disorders: No Cancer Yes Colon Did You Recieve Any Treatments: Yes Type of Treatment: Surgical Intervention Psychosocial History of Psychiatric Problem: No Integumentary History of Skin or Integumenta: No Blood Transfusions History of Blood Disorders: No Family Medical History Significant Family History: No Pertinent Family Hx Review of Systems Constitutional: see HPI Respiratory: dyspnea on exertion Cardiovascular: palpitations Physical Exam Vital Signs Vital Signs - First Documented 04/19/23 04/19/23 04/19/23 04/19/23 13:15 16:00 16:37 16:52 Temp 36.1 Pulse 102 Resp 20 B/P (MAP) 142/104 (117) Pulse Ox 95 O2 Delivery Room Air O2 Flow Rate 0.00 FiO2 21 Capillary Refill : Height, Weight, BMI Height: '" Weight: lbs. oz. kg; 38.85 BMI Method: General Appearance: No Apparent Distress, WD/WN Eyes: Bilateral Eye Normal Inspection, Bilateral Eye PERRL, Bilateral Eye EOMI HEENT: PERRL/EOMI, TMs Normal, Normal ENT Inspection, Pharynx Normal Neck: Full Range of Motion, Normal Inspection, Non Tender, Supple, Carotid Bruit Respiratory: Chest Non Tender, Lungs Clear, Normal Breath Sounds, No Accessory Muscle Use, No Respiratory Distress Cardiovascular: No Edema, No Gallop, No JVD, No Murmur, Normal Peripheral Pulses, Irregularly Irregular, Tachycardia Gastrointestinal: Normal Bowel Sounds, No Organomegaly, No Pulsatile Mass, Non Tender, Soft Back: Normal Inspection, No CVA Tenderness, No Vertebral Tenderness Extremity: Normal Capillary Refill, Normal Inspection, Normal Range of Motion, Non Tender, No Calf Tenderness, No Pedal Edema Neurologic/Psychiatric: Alert, Oriented x3, No Motor/Sensory Deficits, Normal Mood/Affect Skin: Normal Color, Warm/Dry Lymphatic: No Adenopathy Clinical Quality Measures AMI/AHF: ASA po Prior to arrival: No Short Stay Diagnosis Discharge Diagnosis-Short Stay Admission Diagnosis: New onset A-fib with RVR CAD previous stent Hypertension Hyperlipidemia Final Discharge Diagnosis: New onset A-fib with RVR CAD previous stent Hypertension Hyperlipidemia Conclusion Labs Laboratory Tests 04/19/23 13:23: White Blood Count 8.9, Red Blood Count 4.80, Hemoglobin 14.1, Hematocrit 45, Mean Corpuscular Volume 94, Mean Corpuscular Hemoglobin 29, Mean Corpuscular Hemoglobin Concent 31L, Red Cell Distribution Width 13.5, Platelet Count 138, Mean Platelet Volume 12.3H, Immature Granulocyte % (Auto) 0, Neutrophils (%) (Auto) 75, Lymphocytes (%) (Auto) 15, Monocytes (%) (Auto) 8, Eosinophils (%) (Auto) 1, Basophils (%) (Auto) 0, Neutrophils # (Auto) 6.7, Lymphocytes # (Auto) 1.4, Monocytes # (Auto) 0.7, Eosinophils # (Auto) 0.1, Basophils # (Auto) 0.0, Immature Granulocyte # (Auto) 0.0, Percent Immature Platelet Fraction 10.5H, Smear Scan YES 11/24/23 13:52: Prothrombin Time 14.3, INR Comment 1.1, Activated Partial Thromboplast Time 31, Sodium Level 142, Potassium Level 3.8, Chloride Level 107, Carbon Dioxide Level 28, Anion Gap 7, Blood Urea Nitrogen 14, Creatinine 0.64, Estimat Glomerular Filtration Rate 96, BUN/Creatinine Ratio 22, Glucose Level 114H, Calcium Level 8.7, Corrected Calcium 8.7, Magnesium Level 2.1, Total Bilirubin 1.1H, Aspartate Amino Transf (AST/SGOT) 85H, Alanine Aminotransferase (ALT/SGPT) 106H, Alkaline Phosphatase 82, Troponin I < 0.028, B-Type Natriuretic Peptide 202.3H, Total Protein 6.6, Albumin 4.0, Thyroid Stimulating Hormone (TSH) 1.20 04/20/23 03:55: White Blood Count 7.7, Red Blood Count 4.31, Hemoglobin 12.6, Hematocrit 40, Mean Corpuscular Volume 92, Mean Corpuscular Hemoglobin 29, Mean Corpuscular Hemoglobin Concent 32, Red Cell Distribution Width 13.4, Platelet Count 196, Mean Platelet Volume 11.0, Immature Granulocyte % (Auto) 0, Neutrophils (%) (A uto) 70, Lymphocytes (%) (Auto) 20, Monocytes (%) (Auto) 7, Eosinophils (%) (Auto) 3, Basophils (%) (Auto) 1, Neutrophils # (Auto) 5.4, Lymphocytes # (Auto) 1.5, Monocytes # (Auto) 0.6, Eosinophils # (Auto) 0.2, Basophils # (Auto) 0.0, Immature Granulocyte # (Auto) 0.0, Sodium Level 141, Potassium Level 3.9, Chloride Level 108H, Carbon Dioxide Level 25, Anion Gap 8, Blood Urea Nitrogen 12, Creatinine 0.61, Estimat Glomerular Filtration Rate 97, BUN/Creatinine Ratio 20, Glucose Level 114H, Calcium Level 8.8, Corrected Calcium 9.0, Magnesium Level 2.0, Total Bilirubin 0.9, Aspartate Amino Transf (AST/SGOT) 47H, Alanine Aminotransferase (ALT/SGPT) 75H, Alkaline Phosphatase 64, Total Protein 5.9L, Albumin 3.7, Phosphorus Level 3.7, Triglycerides Level 111, Cholesterol Level 128, LDL Cholesterol Direct 75, VLDL Cholesterol 22, HDL Cholesterol 38L Conclusion/Plan Diltiazem drip Cardiology consult Oral anticoagulation Echo MARYANNE GOEL DO Apr 20, 2023 06:29
--- NOTE | 2023-04-20 07:08 | Diagnostic Imaging Report ---
CHEST 1 VIEW, AP/PA ONLY INDICATION: Pulmonary edema. COMPARISON: Chest radiograph on 04/19/2023. FINDINGS: Lungs: Normal lung volume. No focal consolidation. Stable pulmonary vasculature. Pleura: No pleural effusion or pneumothorax. Heart and Mediastinum: Cardiomediastinal silhouette and great vessels of the thorax are stable. Osseous Structures and Soft Tissues: No acute osseous abnormality. Normal soft tissues. IMPRESSION: Similar cardiomegaly or pulmonary vascular congestion. Dictated by: Dictated on workstation # [id number]
[2023-04-20] MEDS ORDERED: AMIODARONE FOR BOLUS 150 MG in NS (IVPB) 100 ML 100 ML IV ONE (07:45)
[2023-04-20] MEDS ORDERED: POTASSIUM CHLORIDE 20 MEQ TABLET PO ONE (08:00)
--- NOTE | 2023-04-20 09:06 | Tele-ICU Progress Note ---
Progress Note 67 y/o admitted with a fib rvr Patient is DNR On diltiazem and amiodarone drips (Tele-ICU Physician , consultation as per request of PCP Service provided via interactive audio and video telecommunications E-CARE system to a patient admitted to ICU bed in [facility]. Available chart/ vitals / labs / Images reviewed H&P is from ER notes Patient's information available about PMH, Shx, Fhx allergy reviewed inEMR. ROS as per chart and RN report Now in ICU, hemodynamically stable Video assessment done using teleICU camera, rest of exam as per RN Discussed with RN. Hospital course: 04/19- A-fib with RVR A/P A-fib with RVR - new dx TSH: normal - cardisem gtt -AC with eliquis - cardiology following CAD ECHO 2021 - EF 60^% , grd 3 dst dsfnc -history of stenting over 10 years ago - cath 2019- Total occlusion of the distal right coronary artery stent with good occlusion in the midright coronary artery receiving collaterals from the left, attempt to cross the occlusion with multiple wires and balloon inflation has failed., Moderate stenosis at the mid LAD JUANITO - by PS[facility] 2019 . AHI 13 , desats to 70s - not using CPAP Elv LFT - normalizing Overall impression A fib/RVR with underlyig CAD PLAN: anticoagulated on apixaban being followed by cardiology on amio and diltiazem Plans in collaboration with bedside consultants and IM MDs. Discussed with RN to reach out if any questions or concerns A total of 15 minutes of critical care time was devoted to this patient today, required to treat and/or prevent further deterioration of critical care condition ( as above ) I am remotely monitoring this patient from another state. I am unable to do the bedside exam, and history/physical and pertinent information is taken from other notes in the computer and bedside staff. . Focused Exam Height, Weight, BMI Height: '" Weight: lbs. oz. kg; 38.85 BMI Method: Labs Laboratory Tests 04/19/23 13:23 04/19/23 13:52 04/20/23 03:55 Results Results/Procedures Labs Laboratory Tests 04/19/23 13:23 04/19/23 13:52 04/20/23 03:55 Patient resulted labs reviewed. Results Labs Labs Laboratory Tests 04/19/23 13:23: White Blood Count 8.9, Red Blood Count 4.80, Hemoglobin 14.1, Hematocrit 45, Mean Corpuscular Volume 94, Mean Corpuscular Hemoglobin 29, Mean Corpuscular Hemoglobin Concent 31L, Red Cell Distribution Width 13.5, Platelet Count 138, Mean Platelet Volume 12.3H, Immature Granulocyte % (Auto) 0, Neutrophils (%) (Auto) 75, Lymphocytes (%) (Auto) 15, Monocytes (%) (Auto) 8, Eosinophils (%) (Auto) 1, Basophils (%) (Auto) 0, Neutrophils # (Auto) 6.7, Lymphocytes # (Auto) 1.4, Monocytes # (Auto) 0.7, Eosinophils # (Auto) 0.1, Basophils # (Auto) 0.0, Immature Granulocyte # (Auto) 0.0, Percent Immature Platelet Fraction 10.5H, Smear Scan YES 04/19/23 13:52: Prothrombin Time 14.3, INR Comment 1.1, Activated Partial Thromboplast Time 31, Sodium Level 142, Potassium Level 3.8, Chloride Level 107, Carbon Dioxide Level 28, Anion Gap 7, Blood Urea Nitrogen 14, Creatinine 0.64, Estimat Glomerular Filtration Rate 96, BUN/Creatinine Ratio 22, Glucose Level 114H, Calcium Level 8.7, Corrected Calcium 8.7, Magnesium Level 2.1, Total Bilirubin 1.1H, Aspartate Amino Transf (AST/SGOT) 85H, Alanine Aminotransferase (ALT/SGPT) 106H, Alkaline Phosphatase 82, Troponin I < 0.028, B-Type Natriuretic Peptide 202.3H, Total Protein 6.6, Albumin 4.0, Thyroid Stimulating Hormone (TSH) 1.20 04/20/23 03:55: White Blood Count 7.7, Red Blood Count 4.31, Hemoglobin 12.6, Hematocrit 40, Mean Corpuscular Volume 92, Mean Corpuscular Hemoglobin 29, Mean Corpuscular Hemoglobin Concent 32, Red Cell Distribution Width 13.4, Platelet Count 196, Mean Platelet Volume 11.0, Immature Granulocyte % (Auto) 0, Neutrophils (%) (Auto) 70, Lymphocytes (%) (Auto) 20, Monocytes (%) (Auto) 7, Eosinophils (%) (Auto) 3, Basophils (%) (Auto) 1, Neutrophils # (Auto) 5.4, Lymphocytes # (Auto) 1.5, Monocytes # (Auto) 0.6, Eosinophils # (Auto) 0.2, Basophils # (Auto) 0.0, Immature Granulocyte # (Auto) 0.0, Sodium Level 141, Potassium Level 3.9, Chloride Level 108H, Carbon Dioxide Level 25, Anion Gap 8, Blood Urea Nitrogen 12, Creatinine 0.61, Estimat Glomerular Filtration Rate 97, BUN/Creatinine Ratio 20, Glucose Level 114H, Calcium Level 8.8, Corrected Calcium 9.0, Magnesium Level 2.0, Total Bilirubin 0.9, Aspartate Amino Transf (AST/SGOT) 47H, Alanine Aminotransferase (ALT/SGPT) 75H, Alkaline Phosphatase 64, Total Protein 5.9L, Albumin 3.7, Phosphorus Level 3.7, Triglycerides Level 111, Cholesterol Level 128, LDL Cholesterol Direct 75, VLDL Cholesterol 22, HDL Cholesterol 38L CHEYENNE HAWKINS MD Apr 20, 2023 09:06
[2023-04-20] MEDS: SENNOSIDES 8.6 MG TABLET PO SCH ×2 (09:08→20:45)
[2023-04-20] MEDS: DOCUSATE SODIUM 100 MG CAPSULE PO SCH ×2 (09:08→20:45)
[2023-04-20] MEDS: APIXABAN 5 MG TABLET PO SCH ×2 (09:08→20:43)
[2023-04-20] MEDS: AMIODARONE FOR DRIP 450 MG in NORMAL SALINE (EXCEL) 250 ML 250 ML IV SCH ×2 (09:09→18:15)
--- NOTE | 2023-04-20 13:21 | Progress Note ---
Standard Progress Note Progress Notes/Assess & Plan Date Seen by a Provider: Apr 20, 2023 Time Seen by a Provider: 09:30 Progress/Assessment & Plan Patient with adequate rate control <110 bpm but remains in AF ( presumed newly diagnosed ) She is anticoagulated with Eliquis tolerating well Continue also Aspirin 81 mg qd as reported history of CVA in past Started patient on Amiodarone today alongside cardizem with hopes she would convert back to sinus rhythm in next 24 hrs If tomorrow 04/21 patient remains on AF will proceed with direct current cardioversion then Will need on DC outpatient cardiology follow up and sleep study Will follow Final Diagnosis paroxysmal symptomatic atrial fibrillation - newly diagnosed HFpEF DEBBIE BOONE MD Apr 20, 2023 13:21
[2023-04-20 19:05] LABS: CLARITY,URINE CLEAR; COLOR,URINE YELLOW; GLUCOSE, URINE (UA) NEGATIVE (NEGATIVE); PH,URINE 5.5 (5-9); PROTEIN,URINE TRACE (NEGATIVE)
[2023-04-20 19:06] LABS: BACTERIA,URINE TRACE /HPF; BILIRUBIN,URINE NEGATIVE (NEGATIVE); KETONES,URINE NEGATIVE (NEGATIVE); LEUKOCYTE ESTERASE ,URINE 1+ (NEGATIVE); NITRITE,URINE NEGATIVE (NEGATIVE); RBC,URINE 50-100 /HPF; URINE OTHER TRANS EPI 0-2 /HPF; WBC,URINE 0-2 /HPF
[2023-04-20] MEDS: ACETAMINOPHEN 325 MG TABLET PO PRN (20:43)
[2023-04-20 23:25] VITALS: BP 128/87
[2023-04-21] MEDS: RT-ALBUTEROL SULF 2.5 MG/3 ML PRE-MIX VIAL INH SCH ×2 (02:32→10:14)
[2023-04-21 04:49] LABS: BASOPHILS % (AUTO) 0 % (0-10); EOSINOPHILS # (AUTO) 0.2 10^3/uL (0.0-0.3); EOSINOPHILS % (AUTO) 2 % (0-10); HEMATOCRIT 43 % (35-52); HEMOGLOBIN 13.5 g/dL (11.5-16.0); LYMPHOCYTES # (AUTO) 1.5 10^3/uL (1.0-4.0); LYMPHOCYTES % (AUTO) 17 % (12-44); MEAN CORPUSCULAR HEMOGLOBIN 29 pg (25-34); MEAN CORPUSCULAR HGB CONC 32 g/dL (32-36); MEAN CORPUSCULAR VOLUME 93 fL (80-99); MEAN PLATELET VOLUME 11.2 fL (9.0-12.2); MONOCYTES # (AUTO) 0.6 10^3/uL (0.0-1.0); MONOCYTES % (AUTO) 7 % (0-12); NEUTROPHILS # (AUTO) 6.6 10^3/uL (1.8-7.8); NEUTROPHILS % (AUTO) 74 % (42-75); PLATELET COUNT 190 10^3/uL (130-400)
[2023-04-21 05:24] LABS: ALBUMIN 3.9 GM/DL (3.2-4.5); CALCIUM 8.6 MG/DL (8.5-10.1); CREATININE SERUM 0.63 MG/DL (0.60-1.30); PHOSPHORUS 3.3 MG/DL (2.3-4.7); POTASSIUM 3.8 MMOL/L (3.6-5.0); TOTAL PROTEIN 6.2 GM/DL (6.4-8.2)
[2023-04-21] MEDS: POTASSIUM CHLORIDE 20 MEQ TABLET PO SCH (05:24)
[2023-04-21] MEDS: POTASSIUM CL 10MEQ/50ML IVPB 50 ML IV SCH (05:24)
[2023-04-21] MEDS: MAGNESIUM 1 GM/100 ML IVPB 100 ML IV SCH (05:24)
--- NOTE | 2023-04-21 06:41 | Progress Note ---
Subjective Date Seen by a Provider: Apr 21, 2023 Time Seen by a Provider: 11:00 Objective Exam Last Set of Vital Signs Vital Signs Date Time Temp Pulse Resp B/P (MAP) Pulse Ox O2 Delivery O2 Flow Rate FiO2 04/21/23 06:00 62 15 128/89 (102) 95 Nasal Cannula 2.00 04/21/23 04:00 36.0 04/19/23 16:37 21 Capillary Refill : I&O Intake and Output 04/21/23 00:00 Intake Total 1400 ml Output Total 2325 ml Balance -925 ml Intake Oral 1400 ml Output Urine Total 2325 ml Results Lab Laboratory Tests 04/20/23 18:15: Urine Color YELLOW, Urine Clarity CLEAR, Urine pH 5.5, Urine Specific [place] 1.015L, Urine Protein TRACEH, Urine Glucose (UA) NEGATIVE, Urine Ketones NEGATIVE, Urine Nitrite NEGATIVE, Urine Bilirubin NEGATIVE, Urine Urobilinogen 0.2, Urine Leukocyte Esterase 1+H, Urine RBC (Auto) 3+H, Urine RBC 50-100H, Urine WBC 0-2, Urine Squamous Epithelial Cells NONE, Urine Crystals NONE, Urine Bacteria TRACE, Urine Casts NONE, Urine Mucus NEGATIVE, Urine Other TRANS EPI 0- 2, Urine Culture Indicated NO 04/21/23 04:08: White Blood Count 9.0, Red Blood Count 4.62, Hemoglobin 13.5, Hematocrit 43, Mean Corpuscular Volume 93, Mean Corpuscular Hemoglobin 29, Mean Corpuscular Hemoglobin Concent 32, Red Cell Distribution Width 13.7, Platelet Count 190, Mean Platelet Volume 11.2, Immature Granulocyte % (Auto) 0, Neutrophils (%) (Auto) 74, Lymphocytes (%) (Auto) 17, Monocytes (%) (Auto) 7, Eosinophils (%) (Auto) 2, Basophils (%) (Auto) 0, Neutrophils # (Auto) 6.6, Lymphocytes # (Auto) 1.5, Monocytes # (Auto) 0.6, Eosinophils # (Auto) 0.2, Basophils # (Auto) 0.0, Immature Granulocyte # (Auto) 0.0, Sodium Level 140, Potassium Level 3.8, Chloride Level 107, Carbon Dioxide Level 24, Anion Gap 9, Blood Urea Nitrogen 15, Creatinine 0.63, Estimat Glomerular Filtration Rate 96, BUN/Creatinine Ratio 24, Glucose Level 139H, Calcium Level 8.6, Corrected Calcium 8.7, Phosphorus Level 3.3, Magnesium Level 2.0, Total Bilirubin 1.0, Aspartate Amino Transf (AST/SGOT) 33, Alanine Aminotransferase (ALT/SGPT) 68H, Alkaline Phosphatase 65, Total Protein 6.2L, Albumin 3.9 Microbiology 04/19/23 MRSA Screen - Final, Complete MRSA not isolated Clinical Quality Measures AMI/AHF: ASA po Prior to arrival: ANA Solorio DO Apr 21, 2023 06:41
--- NOTE | 2023-04-21 07:28 | Diagnostic Imaging Report ---
EXAMINATION: Chest 1 view HISTORY: 04/20/2023 COMPARISON: None available. FINDINGS: Heart size and pulmonary vasculature are normal. Stable trace left pleural effusion. No new consolidation or pneumothorax. Degenerative changes of the thoracic spine. Osseous structures are otherwise intact. IMPRESSION: 1. Trace left pleural effusion. No other acute radiographic abnormality in the chest. Dictated by: Dictated on workstation # [id number]
[2023-04-21] MEDS ORDERED: MIDAZOLAM INJ 2 MG/2 ML VIAL IVP ONE (08:45)
[2023-04-21] MEDS ORDERED: fentaNYL INJECTION 100 MCG/2 ML VIAL IVP ONE (08:45)
[2023-04-21] MEDS ORDERED: POTASSIUM CHLORIDE 20 MEQ TABLET PO ONE (09:00)
[2023-04-21] MEDS: APIXABAN 5 MG TABLET PO SCH (10:08)
[2023-04-21] MEDS: DOCUSATE SODIUM 100 MG CAPSULE PO SCH (10:08)
[2023-04-21] MEDS: SENNOSIDES 8.6 MG TABLET PO SCH (10:09)
[2023-04-21] MEDS ORDERED: MTP25TSR PO (10:44)
[2023-04-21] MEDS ORDERED: APIX5TAB PO (10:44)
[2023-04-21] MEDS ORDERED: ASPI-1238 PO (10:44)
--- NOTE | 2023-04-21 10:46 | Discharge Summary ---
Diagnosis/Chief Complaint Date of Admission Apr 19, 2023 at 15:33 Date of Discharge Discharge Date: Apr 21, 2023 Discharge Diagnosis New onset AF w/RVR CAD previous stent HTN HLP Reason Hospital Visit Chief complaint: New onset A-fib with RVR HPI: This is a 67-year-old female with a history of CAD and stent in the past who presented to the ER with complaints of palpitations found to have atrial fibrillation with rapid ventricular response new onset. Patient was placed on Eliquis for stroke prophylaxis. Diltiazem drip initiated and cardiology consulted. Family at the bedside. Patient denies any pain. We did talk about the possibility of sleep apnea as the source and she will get a sleep study as an outpatient. Discharge Summary Discharge Physical Examination Allergies: Coded Allergies: No Known Drug Allergies (Unverified , 11/16/19) Vitals & I&Os Vital Signs Date Time Temp Pulse Resp B/P (MAP) Pulse Ox O2 Delivery O2 Flow Rate FiO2 04/21/23 12:23 63 04/21/23 12:00 14 92 04/21/23 11:00 Room Air 04/21/23 10:18 0.00 04/21/23 08:45 36.4 04/19/23 16:37 21 General Appearance: Alert, Oriented X3, Cooperative Respiratory: Clear to Auscultation Cardiovascular: Regular Rate Psych/Mental Status: Mental Status NL Hospital Course Was the Problem List Reviewed?: Yes Uneventful course after she was admitted for new onset AF RVR and placed on infusions per Cardiology and placed on OAC. Cardioversion initiated with good results and patient tolerated it well and was ready for DC. Labs (last 24 hrs) Laboratory Tests 04/19/23 13:23: White Blood Count 8.9, Red Blood Count 4.80, Hemoglobin 14.1, Hematocrit 45, Mean Corpuscular Volume 94, Mean Corpuscular Hemoglobin 29, Mean Corpuscular Hemoglobin Concent 31L, Red Cell Distribution Width 13.5, Platelet Count 138, Mean Platelet Volume 12.3H, Immature Granulocyte % (Auto) 0, Neutrophils (%) (Auto) 75, Lymphocytes (%) (Auto) 15, Monocytes (%) (Auto) 8, Eosinophils (%) (Auto) 1, Basophils (%) (Auto) 0, Neutrophils # (Auto) 6.7, Lymphocytes # (Auto) 1.4, Monocytes # (Auto) 0.7, Eosinophils # (Auto) 0.1, Basophils # (Auto) 0.0, Immature Granulocyte # (Auto) 0.0, Percent Immature Platelet Fraction 10.5H, Smear Scan YES 04/19/23 13:52: Prothrombin Time 14.3, INR Comment 1.1, Activated Partial Thromboplast Time 31, Sodium Level 142, Potassium Level 3.8, Chloride Level 107, Carbon Dioxide Level 28, Anion Gap 7, Blood Urea Nitrogen 14, Creatinine 0.64, Estimat Glomerular Filtration Rate 96, BUN/Creatinine Ratio 22, Glucose Level 114H, Calcium Level 8.7, Corrected Calcium 8.7, Magnesium Level 2.1, Total Bilirubin 1.1H, Aspartate Amino Transf (AST/SGOT) 85H, Alanine Aminotransferase (ALT/SGPT) 106H, Alkaline Phosphatase 82, Troponin I < 0.028, B-Type Natriuretic Peptide 202.3H, Total Protein 6.6, Albumin 4.0, Thyroid Stimulating Hormone (TSH) 1.20 04/20/23 03:55: White Blood Count 7.7, Red Blood Count 4.31, Hemoglobin 12.6, Hematocrit 40, Mean Corpuscular Volume 92, Mean Corpuscular Hemoglobin 29, Mean Corpuscular Hemoglobin Concent 32, Red Cell Distribution Width 13.4, Platelet Count 196, Mean Platelet Volume 11.0, Immature Granulocyte % (Auto) 0, Neutrophils (%) (Auto) 70, Lymphocytes (%) (Auto) 20, Monocytes (%) (Auto) 7, Eosinophils (%) (Auto) 3, Basophils (%) (Auto) 1, Neutrophils # (Auto) 5.4, Lymphocytes # (Auto) 1.5, Monocytes # (Auto) 0.6, Eosinophils # (Auto) 0.2, Basophils # (Auto) 0.0, Immature Granulocyte # (Auto) 0.0, Sodium Level 141, Potassium Level 3.9, Chloride Level 108H, Carbon Dioxide Level 25, Anion Gap 8, Blood Urea Nitrogen 12, Creatinine 0.61, Estimat Glomerular Filtration Rate 97, BUN/Creatinine Ratio 20, Glucose Level 114H, Calcium Level 8.8, Corrected Calcium 9.0, Magnesium Level 2.0, Total Bilirubin 0.9, Aspartate Amino Transf (AST/SGOT) 47H, Alanine Aminotransferase (ALT/SGPT) 75H, Alkaline Phosphatase 64, Total Protein 5.9L, Albumin 3.7, Phosphorus Level 3.7, Triglycerides Level 111, Cholesterol Level 128, LDL Cholesterol Direct 75, VLDL Cholesterol 22, HDL Cholesterol 38L 04/20/23 18:15: Urine Color YELLOW, Urine Clarity CLEAR, Urine pH 5.5, Urine Specific [place] 1.015L, Urine Protein TRACEH, Urine Glucose (UA) NEGATIVE, Urine Ketones NEGATIVE, Urine Nitrite NEGATIVE, Urine Bilirubin NEGATIVE, Urine Urobilinogen 0.2, Urine Leukocyte Esterase 1+H, Urine RBC (Auto) 3+H, Urine RBC 50-100H, Urine WBC 0-2, Urine Squamous Epithelial Cells NONE, Urine Crystals NONE, Urine Bacteria TRACE, Urine Casts NONE, Urine Mucus NEGATIVE, Urine Other TRANS EPI 0- 2, Urine Culture Indicated NO 04/21/23 04:08: White Blood Count 9.0, Red Blood Count 4.62, Hemoglobin 13.5, Hematocrit 43, Mean Corpuscular Volume 93, Mean Corpuscular Hemoglobin 29, Mean Corpuscular Hemoglobin Concent 32, Red Cell Distribution Width 13.7, Platelet Count 190, M jean Platelet Volume 11.2, Immature Granulocyte % (Auto) 0, Neutrophils (%) (Auto) 74, Lymphocytes (%) (Auto) 17, Monocytes (%) (Auto) 7, Eosinophils (%) (Auto) 2, Basophils (%) (Auto) 0, Neutrophils # (Auto) 6.6, Lymphocytes # (Auto) 1.5, Monocytes # (Auto) 0.6, Eosinophils # (Auto) 0.2, Basophils # (Auto) 0.0, Immature Granulocyte # (Auto) 0.0, Sodium Level 140, Potassium Level 3.8, Chloride Level 107, Carbon Dioxide Level 24, Anion Gap 9, Blood Urea Nitrogen 15, Creatinine 0.63, Estimat Glomerular Filtration Rate 96, BUN/Creatinine Ratio 24, Glucose Level 139H, Calcium Level 8.6, Corrected Calcium 8.7, Phosphorus Level 3.3, Magnesium Level 2.0, Total Bilirubin 1.0, Aspartate Amino Transf (AST/SGOT) 33, Alanine Aminotransferase (ALT/SGPT) 68H, Alkaline Phosphatase 65, Total Protein 6.2L, Albumin 3.9 Microbiology 04/19/23 MRSA Screen - Final, Complete MRSA not isolated Pending Labs Microbiology Date/Time Source Procedure Growth Status 04/19/23 15:56 Nasal MRSA Screen - Final MRSA not isolated Complete Laboratory Tests 04/19/23 13:23: White Blood Count 8.9, Red Blood Count 4.80, Hemoglobin 14.1, Hematocrit 45, Mean Corpuscular Volume 94, Mean Corpuscular Hemoglobin 29, Mean Corpuscular Hemoglobin Concent 31, Red Cell Distribution Width 13.5, Platelet Count 138, Mean Platelet Volume 12.3, Immature Granulocyte % (Auto) 0, Neutrophils (%) (Auto) 75, Lymphocytes (%) (Auto) 15, Monocytes (%) (Auto) 8, Eosinophils (%) (Auto) 1, Basophils (%) (Auto) 0, Neutrophils # (Auto) 6.7, Lymphocytes # (Auto) 1.4, Monocytes # (Auto) 0.7, Eosinophils # (Auto) 0.1, Basophils # (Auto) 0.0, Immature Granulocyte # (Auto) 0.0, Percent Immature Platelet Fraction 10.5, Smear Scan YES 04/19/23 13:52: Prothrombin Time 14.3, INR Comment 1.1, Activated Partial Thromboplast Time 31, Sodium Level 142, Potassium Level 3.8, Chloride Level 107, Carbon Dioxide Level 28, Anion Gap 7, Blood Urea Nitrogen 14, Creatinine 0.64, Estimat Glomerular Filtration Rate 96, BUN/Creatinine Ratio 22, Glucose Level 114, Calcium Level 8.7, Corrected Calcium 8.7, Magnesium Level 2.1, Total Bilirubin 1.1, Aspartate Amino Transf (AST/SGOT) 85, Alanine Aminotransferase (ALT/SGPT) 106, Alkaline Phosphatase 82, Troponin I < 0.028, B-Type Natriuretic Peptide 202.3, Total Protein 6.6, Albumin 4.0, Thyroid Stimulating Hormone (TSH) 1.20 04/20/23 03:55: White Blood Count 7.7, Red Blood Count 4.31, Hemoglobin 12.6, Hematocrit 40, Mean Corpuscular Volume 92, Mean Corpuscular Hemoglobin 29, Mean Corpuscular Hemoglobin Concent 32, Red Cell Distribution Width 13.4, Platelet Count 196, Mean Platelet Volume 11.0, Immature Granulocyte % (Auto) 0, Neutrophils (%) (Auto) 70, Lymphocytes (%) (Auto) 20, Monocytes (%) (Auto) 7, Eosinophils (%) (Auto) 3, Basophils (%) (Auto) 1, Neutrophils # (Auto) 5.4, Lymphocytes # (Auto) 1.5, Monocytes # (Auto) 0.6, Eosinophils # (Auto) 0.2, Basophils # (Auto) 0.0, Immature Granulocyte # (Auto) 0.0, Sodium Level 141, Potassium Level 3.9, Chloride Level 108, Carbon Dioxide Level 25, Anion Gap 8, Blood Urea Nitrogen 12, Creatinine 0.61, Estimat Glomerular Filtration Rate 97, BUN/Creatinine Ratio 20, Glucose Level 114, Calcium Level 8.8, Corrected Calcium 9.0, Magnesium Level 2.0, Total Bilirubin 0.9, Aspartate Amino Transf (AST/SGOT) 47, Alanine Aminotransferase (ALT/SGPT) 75, Alkaline Phosphatase 64, Total Protein 5.9, Albumin 3.7, Phosphorus Level 3.7, Triglycerides Level 111, Cholesterol Level 128, LDL Cholesterol Direct 75, VLDL Cholesterol 22, HDL Cholesterol 38 04/20/23 18:15: Urine Color YELLOW, Urine Clarity CLEAR, Urine pH 5.5, Urine Specific [place] 1.015, Urine Protein TRACE, Urine Glucose (UA) NEGATIVE, Urine Ketones NEGATIVE, Urine Nitrite NEGATIVE, Urine Bilirubin NEGATIVE, Urine Urobilinogen 0.2, Urine Leukocyte Esterase 1+, Urine RBC (Auto) 3+, Urine RBC 50-100, Urine WBC 0-2, Urine Squamous Epithelial Cells NONE, Urine Crystals NONE, Urine Bacteria TRACE, Urine Casts NONE, Urine Mucus NEGATIVE, Urine Other TRANS EPI 0-2, Urine Culture Indicated NO 04/21/23 04:08: White Blood Count 9.0, Red Blood Count 4.62, Hemoglobin 13.5, Hematocrit 43, Mean Corpuscular Volume 93, Mean Corpuscular Hemoglobin 29, Mean Corpuscular Hemoglobin Concent 32, Red Cell Distribution Width 13.7, Platelet Count 190, Mean Platelet Volume 11.2, Immature Granulocyte % (Auto) 0, Neutrophils (%) (Auto) 74, Lymphocytes (%) (Auto) 17, Monocytes (%) (Auto) 7, Eosinophils (%) (Auto) 2, Basophils (%) (Auto) 0, Neutrophils # (Auto) 6.6, Lymphocytes # (Auto) 1.5, Monocytes # (Auto) 0.6, Eosinophils # (Auto) 0.2, Basophils # (Auto) 0.0, Immature Granulocyte # (Auto) 0.0, Sodium Level 140, Potassium Level 3.8, Chloride Level 107, Carbon Dioxide Level 24, Anion Gap 9, Blood Urea Nitrogen 15, Creatinine 0.63, Estimat Glomerular Filtration Rate 96, BUN/Creatinine Ratio 24, Glucose Level 139, Calcium Level 8.6, Corrected Calcium 8.7, Phosphorus Level 3.3, Magnesium Level 2.0, Total Bilirubin 1.0, Aspartate Amino Transf (AST/SGOT) 33, Alanine Aminotransferase (ALT/SGPT) 68, Alkaline Phosphatase 65, Total Protein 6.2, Albumin 3.9 Discharge Home Medications: Active Scripts Active Aspirin EC (Aspirin) 81 Mg Tablet.dr 81 Mg PO DAILY Metoprolol Succinate 25 Mg Tab.er.24h 25 Mg PO DAILY Eliquis (Apixaban) 5 Mg Tablet 5 Mg PO BID Lisinopril 10 Mg Tablet 10 Mg PO DAILY Reported Isosorbide Mononitrate ER (Isosorbide Mononitrate) 30 Mg Tab.er.24h 30 Mg PO DAILY Fish Oil 1,000 mg Softgel ([place]-3/Dha/Epa/Fish Oil) 1,000 Mg (120 Mg-180 Mg) Capsule 1,000 Mg PO DAILY Vitamin C 500 mg Tablet Chew (Ascorbic Acid/Ascorbate Sodium) 500 Mg Tab.chew 500 Mg PO DAILY Centrum Women Tablet (Multivitamin/Iron/Folic Acid) 1 Each Tablet 1 Each PO DAILY Atorvastatin Calcium 20 Mg Tablet 20 Mg PO HS Sertraline HCl 50 Mg Tablet 50 Mg PO DAILY Instructions to patient/family Please see electronic discharge instructions given to patient. Clinical Quality Measures AMI/AHF: ASA po Prior to arrival: ANA Solorio DO Apr 21, 2023 10:46
--- NOTE | 2023-04-21 10:49 | Tele-ICU Progress Note ---
Subjective Date Seen by a Provider: Apr 21, 2023 Time Seen by a Provider: 10:47 Subjective/Events-last exam (Tele-ICU Physician , Progress Note ) Service provided via interactive audio and video telecommunications E-CARE system to a patient admitted to ICU bed in [facility]. Patient is seen today due to persistent need of ICU care Available chart/ vitals / labs / Images reviewed Video assessment done using teleICU camera, rest of exam as per RN Discussed with RN Events overnight : Afebrile hemodynamically stable Drips: Pressors- no Hospital course: 04/19- A-fib with RVR A/P A-fib with RVR - new dx ?, TSH wnl - cardisem gtt and amio ggt -AC with eliquis -planned cardioversion 04/21 CAD ECHO 2021 - EF 60^% , grd 3 dst dsfnc -history of stenting over 10 years ago - cath 2019- Total occlusion of the distal right coronary artery stent with good occlusion in the midright coronary artery receiving collaterals from the left, attempt to cross the occlusion with multiple wires and balloon inflation has failed., Moderate stenosis at the mid LAD JUANITO - by PSG 2019 . AHI 13 , desats to 70s - not using CPAP Elv LFT - suspectsed venous congestion Lines : periph , (Central Line Necessity Reviewed) [place]: + Plans in collaboration with bedside consultants and IM MDs. Discussed with RN to reach out if any questions or concerns Case and care daily discussed on multidisciplinary rounds ( RN, PharmD, Lead Applications Developer , Respiratory Therapy, bridge maintenance worker ) A total of 20 minutes of critical care time was devoted to this patient today, required to treat and/or prevent further deterioration of critical care condition ( as above ) . I am remotely monitoring this patient from another state. I am unable to do the bedside exam, and history/physical and pertinent information is taken from other notes in the computer and bedside staff. Sepsis Event Evaluation Height, Weight, BMI Height: '" Weight: lbs. oz. kg; 39.25 BMI Method: Exam Exam Patient acknowledged, consented, and participated in this virtual visit which was conducted using real time audio/video Vital Signs Date Time Temp Pulse Resp B/P (MAP) Pulse Ox O2 Delivery O2 Flow Rate FiO2 04/21/23 10:18 Room Air 0.00 11/26/23 10:14 99 Nasal Cannula 3.00 04/21/23 10:00 59 12 140/83 (102) 96 Room Air 04/21/23 09:00 82 14 125/94 (99) 94 Room Air 04/21/23 08:45 36.4 Room Air 04/21/23 08:00 77 20 113/88 (90) 92 Nasal Cannula 2.00 04/21/23 07:00 74 11 138/88 (110) 98 Nasal Cannula 2.00 04/21/23 07:00 71 04/21/23 06:00 62 15 128/89 (102) 95 Nasal Cannula 2.00 04/21/23 05:00 69 19 126/83 (97) 93 Nasal Cannula 2.00 04/21/23 04:00 95 Room Air 04/21/23 04:00 70 15 124/86 (99) 92 Nasal Cannula 2.00 04/21/23 04:00 36.0 04/21/23 03:00 78 20 133/78 (96) 93 Nasal Cannula 2.00 04/21/23 02:32 Room Air 04/21/23 02:00 66 20 138/88 (105) 94 Nasal Cannula 2.00 04/21/23 01:00 56 14 123/92 (102) 90 Nasal Cannula 2.00 04/21/23 00:52 63 04/21/23 00:00 74 13 112/67 (82) 95 Nasal Cannula 2.00 04/20/23 23:59 98 Room Air 04/20/23 23:25 72 128/87 04/20/23 23:00 76 16 116/40 (65) 94 Nasal Cannula 2.00 04/20/23 22:00 72 14 128/87 (101) 92 Nasal Cannula 2.00 04/20/23 21:53 Nasal Cannula 2.00 04/20/23 21:11 97 Room Air 04/20/23 21:00 71 120/63 (82) 91 Room Air 04/20/23 20:00 67 132/99 (110) 94 Room Air 04/20/23 20:00 98 Room Air 04/20/23 19:51 36.3 04/20/23 19:47 74 16 127/76 (93) 92 Room Air 04/20/23 19:04 85 04/20/23 19:00 79 121/84 (96) 92 Room Air 04/20/23 18:00 75 13 133/77 (96) Room Air 04/20/23 17:00 93 10 122/95 (104) Room Air 04/20/23 16:23 36.5 04/20/23 16:00 94 19 109/84 (94) Room Air 04/20/23 16:00 96 Room Air 04/20/23 15:23 90 Room Air 04/20/23 15:00 111 11 111/101 (106) Room Air 04/20/23 14:00 112 24 124/107 (113) 90 Room Air 04/20/23 13:00 104 17 120/84 (107) 91 Room Air 04/20/23 12:25 101 04/20/23 12:21 36.0 Room Air 04/20/23 12:00 95 Room Air 04/20/23 12:00 105 23 115/81 (95) 91 Nasal Cannula 2.50 04/20/23 11:00 85 22 128/87 (100) 93 Nasal Cannula 2.50 I & O 04/21/23 06:59 Intake Total 1462 ml Output Total 2525 ml Balance -1063 ml Height & Weight Height: '" Weight: lbs. oz. kg; 39.25 BMI Method: General Appearance: No Apparent Distress, WD/WN HEENT: PERRL/EOMI, TMs Normal, Normal ENT Inspection, Pharynx Normal Neck: Full Range of Motion, Normal Inspection, Non Tender, Supple, Carotid Bruit Respiratory: Chest Non Tender, Lungs Clear, Normal Breath Sounds, No Accessory Muscle Use, No Respiratory Distress Cardiovascular: No Edema, No Gallop, No JVD, No Murmur, Normal Peripheral Pulses, Irregularly Irregular, Tachycardia Extremity: Normal Capillary Refill, Normal Inspection, Normal Range of Motion, Non Tender, No Calf Tenderness, No Pedal Edema Neurologic/Psychiatric: Alert, Oriented x3, No Motor/Sensory Deficits, Normal Mood/Affect Skin: Normal Color, Warm/Dry Lymphatic: No Adenopathy Results Lab Laboratory Tests 04/19/23 13:23 04/19/23 13:52 04/20/23 03:55 04/21/23 04:08 Assessment/Plan Assessment/Plan 1 BRENDAN HUNTER MD Apr 21, 2023 10:49
--- NOTE | 2023-04-21 12:21 | Cardiology Post Procedure Note ---
Post-Procedure Note Physician (s)/[facility] Cornerer (s) Physician DEBBIE BOONE MD [facility]ne[facility] (s) ICU nursing staff Pre-Procedure Diagnosis Pre-Procedure Diagnosis: atrial fibrillation Post-Procedure Note Procedure Start Date: Apr 21, 2023 Procedure Start Time: 09:15 Name of Procedure: Direct current cardioversion Findings/Procedure Note Patient was informed of procedural risks and benefits and agreed to proceed with DCCV for AF . She presented with new onset AF within past 48 hrs and has been placed on Eliquis for multiple doses now . She was given pre procedural sedation with 1 mg of versed and 25 mg of fentanyl . Zoll pads placed appropriately . Sync Zoll and delivered 200 J DCCV x1 with successful return to sinus rhythm. 12 ECG performed post DCCV .Patient will stay on Toprol XL and Eliquis and be followed outpatient for further management .procedure was tolerated well Anesthesia Type: Conscious Sedation Estimated blood loss (mL): 0 Contrast Amount: 0 Post-Procedure Diagnosis Post-operative diagnosis: Successful DCCV 200J x1 with return to sinus DEBBIE Brock MD Apr 21, 2023 12:21
--- NOTE | 2023-04-21 12:22 | Progress Note ---
Standard Progress Note Progress Notes/Assess & Plan Date Seen by a Provider: Apr 21, 2023 Time Seen by a Provider: 09:18 Progress/Assessment & Plan Patient was informed of procedural risks and benefits and agreed to proceed with DCCV for AF . She presented with new onset AF within past 48 hrs and has been placed on Eliquis for multiple doses now . She was given pre procedural sedation with 1 mg of versed and 25 mg of fentanyl . Zoll pads placed appropriately . Sync Zoll and delivered 200 J DCCV x1 with successful return to sinus rhythm. 12 ECG performed post DCCV .Patient will stay on Toprol XL and Eliquis and be followed outpatient for further management .procedure was tolerated well.Needs sleep study outpatient Stable for DC later today Final Diagnosis AF new onset with RVR DEBBIE BOONE MD Apr 21, 2023 12:22
== END 2023-04-21 13:44 | disposition home or self-care (01) ==
LOC: EDUNIT# 13:14 → ER 13:15 → ICU 15:33
PROVIDERS: ADMIT Internal Medicine; ATTEND Internal Medicine
DX: I48.0 Paroxysmal atrial fibrillation (principal); I11.0 Hypertensive heart disease with heart failure; I50.30 Unspecified diastolic (congestive) heart failure; I25.10 Atherosclerotic heart disease of native coronary artery without angina pectoris; E78.5 Hyperlipidemia, unspecified; R79.89 Other specified abnormal findings of blood chemistry; G47.33 Obstructive sleep apnea (adult) (pediatric); Z95.5 Presence of coronary angioplasty implant and graft
CPT/HCPCS: 36415; 71045; 80053; 80061; 81000; 83735; 83880; 84100; 84443; 84484; 85025; 85610; 85730; 87081; 93005; 93041; 94640; 96366; 96375; 96376; G0378